=== PATIENT | female | born 1945 | race African-American/Black ===

== ENCOUNTER 2016-11-15 12:18 | Inpatient (IN) | payer OTHER ==
--- NOTE | 2016-11-15 12:32 | PDOC ---
History of Present Illness - General Chief Complaint: Dialysis Shunt Problem Stated Complaint: WOUND CARE Time Seen by Provider: 11/15/16 12:25 History Source: EMS Exam Limitations: Dementia - History of Present Illness Initial Comments: 11/15/16 12:40 Patient is a 71F who arrived via EMS from a correction with a complaint of missed dialysis secondary to lost access to her AVF. She saw Dr Villa yesterday , who did a procedure to regain access to the AVF. However, the dialysis center was unable to establish access yesterday. Paperwork from her correction state a Cr of 12.4 and K of 4.9 on 11/12. EMS stated that she is confused at baseline, that she was at her baseline and was only oriented to self. The patient reports no pain, but was unable to answer more complex or specific questions. 11/15/16 15:38 Resident of [facility]. PCP is listed as Dr Salas on correction paperwork. Past History - Past Medical History Allergies/Adverse Reactions: Allergies Allergy/AdvReac Type Severity Reaction Status Date / Time labetalol Allergy Intermediate Difficulty Verified 11/15/16 12:25 Breathing latanoprost [From Xalatan] Allergy Intermediate Difficulty Verified 11/15/16 12: 25 Breathing peanut Allergy Verified 11/15/16 12:25 Home Medications: Ambulatory Orders Albuterol 0.083% Nebulizer Lizeth [Ventolin 0.083% Nebulizer Soln -] 1 amp IH BID 02/14/15 Amlodipine Besylate 10 mg PO DAILY 02/14/15 Carvedilol [Coreg] 25 mg PO BID 02/14/15 Cinacalcet HCl [Sensipar] 30 mg PO DAILY 02/14/15 Clonidine HCl [Catapres] 0.3 mg PO TID 02/14/15 Docusate Sodium [Colace -] 3 cap PO HS 02/14/15 Ferrous Sulfate 325 mg PO DAILY 02/14/15 Gabapentin 100 mg PO TID 02/14/15 Haloperidol [Haldol -] 10 mg PO HS 02/14/15 Acetaminophen [Pain Relief] 650 mg PO PRN PRN 11/14/16 Ammonium Lactate [Tootie-Hydrolac] 240 gm TP HS 11/14/16 Divalproex [Depakote -] 500 mg PO TID 11/14/16 Guaifenesin/D-Methorphan Hb [Diabetic Tussin Dm Liquid] 118 ml PO PRN PRN Insulin (Levemir) [Levemir Vial] 18 unit SQ HS 11/14/16 Insulin Aspart [Novolog] 100 unit SQ TID 11/14/16 Insulin Lispro [Humalog] 100 unit SQ PRN PRN 11/14/16 Lactulose 10 gm PO DAILY 11/14/16 Lorazepam 1 mg PO PRN PRN 11/14/16 Magnesium Hydroxide [Milk of Magnesia] 400 mg PO PRN 11/14/16 Menthol [Bengay Ultra Strength] 1 each TP DAILY 11/14/16 Na Phos,M-B/Na Phos,Di-Ba [Fleet Enema] 133 ml RC PRN PRN 11/14/16 Polyethylene Glycol [Polyox Wsr-301] 1 gm MC HS 11/14/16 Prednisone 10 mg PO DAILY 11/14/16 Sevelamer Carbonate [Renvela] 800 mg PO TID 11/14/16 Umeclidinium [place] [Incruse Ellipta] 62.5 mcg IH DAILY 11/14/16 Vitamin B Comp W-C [Nephro-Lorenzo -] 1 tablet PO DAILY 11/14/16 Anemia: No Asthma: Yes Cancer: Yes (colon) Cardiac Disorders: No COPD: No CHF: No Diabetes: Yes HTN: Yes Hypercholesterolemia: No Thyroid Disease: No - Surgical History Abdominal Surgery: Yes Appendectomy: No Cardiac Surgery: No Cholecystectomy: No Lung Surgery: No Neurologic Surgery: No Orthopedic Surgery: No - Psycho/Social/Smoking Cessation Hx Smoking History: Former smoker Have you smoked in the past 12 months: No Number of Cigarettes Smoked Daily: 3 'Breaking Loose' booklet given: 03/10/15 Hx Alcohol Use: No Drug/Substance Use Hx: No Substance Use Type: None Hx Substance Use Treatment: No Review of Systems - Review of Systems Able to Perform ROS?: No (Patient's condition) *Physical Exam - Physical Exam Comments: 11/15/16 13:15 GENERAL: Awake, alert, and fully oriented, in no acute distress HEAD: No signs of trauma, normocephalic, atraumatic ENT: Auricles normal inspection, hearing grossly normal, nares patent, oropharynx clear without exudates. Moist mucosa NECK: Normal ROM, supple, JVD, or masses LUNGS: No distress, clear to auscultation bilaterally HEART: Regular rate and rhythm, normal S1 and S2, no murmurs, rubs or gallops ABDOMEN: Soft, nontender, normoactive bowel sounds. No guarding, no rebound. No masses EXTREMITIES: Normal inspection, Normal range of motion, no pitting edema. No clubbing or cyanosis. AVF in left arm has no palpable thrill. NEUROLOGICAL: Abnormal slurred speech, alert to self, place, year, but not situation SKIN: Warm, Dry, normal turgor, no rashes or lesions noted. ED Treatment Course - LABORATORY CBC & Chemistry Diagram: 11/15/16 13:11 11/15/16 13:11 Medical Decision Making - Medical Decision Making 11/15/16 13:17 Patient is a 71F with history of COPD, IDDM, CHF, HTN, Bipolar and CKD here today complaining of missed dialysis secondary to lost access to her AVF. Dr Villa, her vascular surgeon, has been contacted. Vital signs stable and normal. Will order CBC, CMP, EKG, CXR to evaluate. 11/15/16 14:00 CXR shows properly placed port and no evidence of fluid overload. Repeat blood pressure at 91/62. EKG shows t wave inversions in lateral leads, normal sinus rhythm, normal rate. T wave inversions are new when compared to EKG from 2 years ago. 11/15/16 15:41 Dr Villa consulted on patient. Patient case reviewed. Asked to admit patient and said he would see her. 11/15/16 16:01 Dr Salas paged at 3:45. Cr of 14.2, K of 5.2. 11/15/16 16:36 Dr Salas returned call, patient discussed, agreed with plan to admit. Does not have admitting privileges at [facility]. Call out to doctor Car for admission. 11/15/16 18:[address] Car on tele. Dr Fajardo from Nephrology consulted on to case. Agrees with plan. *DC/Admit/Observation/Transfer Diagnosis at time of Disposition: Dialysis AV fistula malfunction Qualifiers: Encounter type: initial encounter Qualified Code(s): T82.590A - Other mechanical complication of surgically created arteriovenous fistula, initial encounter - Discharge Dispostion Condition at time of disposition: Stable Admit: Yes - Transfer to Acute Care Facility Accepting Physician:: Josep - Attestations Physician Attestion: 11/15/16 16:50 I, Dr. Carlos Torre, attest that this document has been prepared under my direction and personally reviewed by me in its entirety. I further attest, that it accurately reflects all work, treatment, procedures and medical decision -making performed by me.
--- NOTE | 2016-11-15 12:45 | PDOC ---
Attending Attestation - Resident Resident Name: NichoCarlos - ED Attending Attestation I have performed the following: I have examined & evaluated the patient, The case was reviewed & discussed with the resident, I agree w/resident's findings & plan, Exceptions are as noted - HPI HPI: 11/15/16 12:43 71yo F hx ESRD on HD MWF (last HD Saturday, unable to get HD yesterday 2/2 malfx fistula), COPD, asthma, IDDM, CHF, HTN, bipolar d/o p/w missed HD. Pt lost fistula access yesterday, saw Dr. Villa (vascular) who was unable to fix the fistula. Pt is a poor historian but denies pain, chest pain, shortness of breath , fevers, chills, nausea, vomiting, diarrhea, abdominal pain, dysuria, lower extremity edema, rashes. Potassium in labs at [place] was 4.9 on 11/12. - Physicial Exam PE: 11/15/16 13:16 GENERAL: Awake, alert, in no acute distress HEAD: No signs of trauma EYES: PERRLA, EOMI, sclera anicteric, conjunctiva clear ENT: Auricles normal inspection, hearing grossly normal, nares patent, oropharynx clear without exudates. Moist mucosa NECK: Normal ROM, supple, no lymphadenopathy, JVD, or masses LUNGS: Breath sounds equal, clear to auscultation bilaterally. No wheezes, and no crackles HEART: Regular rate and rhythm, normal S1 and S2, no murmurs, rubs or gallops ABDOMEN: Soft, nontender, normoactive bowel sounds. No guarding, no rebound. No masses EXTREMITIES: Normal range of motion, LUE fistula with no palpable thrill NEUROLOGICAL: Normal speech, cranial nerves intact, negative pronator drift, 5/ 5 strength in all 4 extremities, normal sensation to light touch in all 4 extremities, normal cerebellar exam SKIN: Warm, Dry, normal turgor, no rashes or lesions noted. - Medical Decision Making 11/15/16 13:18 71-year-old female end-stage renal disease on dialysis presents with missed dialysis secondary to malfunctioning fistula. Will check for electrolyte abnormalities and check remainder of basic labs and EKG. Will also contact Dr. Villa in order to arrange for patient's fistula to be repaired. -labs -cardiac cath technologist -CXR -EKG -call Dr. Villa -admit
[2016-11-15 12:47] VITALS: BMI 26.9
[2016-11-15 13:29] LABS: BASOPHIL 0.2 % (0-2.0); EOSINOPHIL 1.8 % (0-4.5); MCH 30.3 pg (25.7-33.7); MCHC 31.1 g/dl (32.0-36.0); MEAN CELL VOLUME 97.7 fl (80-96); MEAN PLT VOLUME 8.3 fl (7.5-11.1); NEUTROPHILS 76.3 % (42.8-82.8); PLATELET COUNT 191 K/MM3 (134-434)
[2016-11-15 13:51] LABS: INR 1.04 (0.82-1.09); PROTHROMBIN TIME (PATIENT) 11.4 SEC (9.98-11.88)
[2016-11-15 14:20] LABS: ALBUMIN 2.6 g/dl (3.4-5.0); ANION GAP 19 (8-16); CALCIUM 8.8 mg/dL (8.5-10.1); CO2 23 mmol/L (21-32); GLUCOSE,RANDOM 176 mg/dL (74-106); MAGNESIUM 3.5 mg/dL (1.8-2.4); SGOT/AST 15 U/L (15-37); SGPT/ALT 7 U/L (12-78)
[2016-11-15 14:26] LABS: ALK PHOS 72 U/L (45-117); BILIRUBIN,TOTAL 0.2 mg/dL (0.2-1.0); CPK 68 IU/L (26-192); TOT PROT 5.8 g/dl (6.4-8.2); TROPONIN I 0.06 ng/ml (0.00-0.05)
[2016-11-15 14:30] LABS: CREATININE 14.2 mg/dL (0.55-1.02)
--- NOTE | 2016-11-15 17:40 | PN ---
Progress Note (short form) - Note Progress Note: VAscular Surgery Pt seen and examined. Difficult cannulation today. Left avf with bruit Will do venogram jyoti morning Yimi Villa DO
[2016-11-15 20:53] LABS: PLATELET COMMENT2 NO CLUMPING NOTED; PLATELET COMMENT3 NO CLOTTING DETECTED
[2016-11-15 20:54] LABS: ANISOCYTOSIS 2+; HYPOCHROMIA 2+; POIKILOCYTOSIS 1+; POLYCHROMASIA 1+
[2016-11-15] MEDS ORDERED: LORazepam 1 MG TABLET PO PRN (21:02)
[2016-11-15] MEDS ORDERED: ACETAMINOPHEN 325 MG TABLET (FP) PO PRN (21:15)
[2016-11-15] MEDS ORDERED: HALOPERIDOL 5 MG TABLET (FP) PO SCH (22:00)
[2016-11-15] MEDS ORDERED: CARVEDILOL 25 MG TABLET (FP) PO SCH (22:00)
[2016-11-15] MEDS ORDERED: INSULIN DETEMIR 100 UNITS/ML MDV SQ SCH (22:00)
[2016-11-15] MEDS ORDERED: DOCUSATE SODIUM 100 MG CAPSULE (FP) PO SCH (22:00)
[2016-11-15] MEDS ORDERED: PATIENT'S OWN MEDICATION (NON-FORMULARY) (Polyethylene Glycol [Polyox Wsr-301] 1 GM) MC SCH (22:00)
[2016-11-15] MEDS: cloNIDine HCL 0.1 MG TABLET PO SCH (23:17)
[2016-11-15] MEDS: FERROUS SO4 325 MG TABLET (FP) PO SCH (23:17)
[2016-11-15] MEDS: GABAPENTIN 100 MG CAPSULE (FP) PO SCH (23:17)
[2016-11-15] MEDS: HEPARIN NA (PORCINE) 5,000 UNITS/ML 1ML VIAL SQ SCH (23:17)
[2016-11-15] MEDS: DIVALPROEX SODIUM 500 MG TABLET E.C. PO SCH (23:17)
[2016-11-16] MEDS ORDERED: ONDANSETRON 4 MG/2 ML VIAL IVPB PRN ×2 (01:00→13:19)
[2016-11-16] MEDS ORDERED: PT OWN MED DRAWER 7, Y5N ONE ×2 (06:55→22:16)
[2016-11-16] MEDS: cloNIDine HCL 0.1 MG TABLET PO SCH ×3 (06:57→22:20)
[2016-11-16] MEDS: GABAPENTIN 100 MG CAPSULE (FP) PO SCH ×3 (06:57→22:20)
[2016-11-16] MEDS: DIVALPROEX SODIUM 500 MG TABLET E.C. PO SCH (06:57)
[2016-11-16] MEDS ORDERED: SEVELAMER CARBONATE 800 MG TAB (FP) PO SCH (08:00)
[2016-11-16] MEDS ORDERED: predniSONE 10 MG TABLET (UD) PO SCH (10:00)
[2016-11-16] MEDS ORDERED: PATIENT'S OWN MEDICATION (NON-FORMULARY) (Umeclidinium Bromide [Incruse Ellipta] 62.5 MCG) IH SCH (10:00)
[2016-11-16] MEDS ORDERED: CINACALCET HCL 30 MG TAB (FP) PO SCH (10:00)
[2016-11-16] MEDS ORDERED: amLODIPine BESYLATE 10 MG TABLET (FP) PO SCH (10:00)
[2016-11-16] MEDS ORDERED: LACTULOSE 20 GM/30 ML UDC (FOR ORAL USE ONLY) PO SCH (10:00)
--- NOTE | 2016-11-16 10:27 | EKG ---
Test Reason : Blood Pressure : / mmHG Vent. Rate : 074 BPM Atrial Rate : 074 BPM P-R Int : 128 ms QRS Dur : 080 ms QT Int : 410 ms P-R-T Axes : 053 -09 100 degrees QTc Int : 455 ms NORMAL SINUS RHYTHM T WAVE ABNORMALITY, CONSIDER LATERAL ISCHEMIA ABNORMAL ECG WHEN COMPARED WITH ECG OF 10-MAR-2015 08:33, T WAVE INVERSION NOW EVIDENT IN LATERAL LEADS Confirmed by CHRISTOPHER GERARDO, SAMMY ([id number]) on 11/16/2016 10:26:51 AM Referred By: Confirmed By:SAMMY WHITE MD
[2016-11-16 10:34] LABS: BASOPHIL 0.3 % (0-2.0); EOSINOPHIL 3.7 % (0-4.5); MCH 30.5 pg (25.7-33.7); MCHC 31.3 g/dl (32.0-36.0); MEAN CELL VOLUME 97.3 fl (80-96); MEAN PLT VOLUME 7.7 fl (7.5-11.1); NEUTROPHILS 72.8 % (42.8-82.8); PLATELET COUNT 177 K/MM3 (134-434); RDW 22.9 % (11.6-15.6); WHITE BLOOD COUNT 6.9 K/mm3 (4.0-10.0)
[2016-11-16] MEDS: FERROUS SO4 325 MG TABLET (FP) PO SCH (10:50)
[2016-11-16] MEDS: HEPARIN NA (PORCINE) 5,000 UNITS/ML 1ML VIAL SQ SCH ×2 (10:51→22:20)
[2016-11-16 10:56] LABS: ALBUMIN 2.4 g/dl (3.4-5.0); ANION GAP 14 (8-16); BILIRUBIN,TOTAL 0.3 mg/dL (0.2-1.0); CALCIUM 8.5 mg/dL (8.5-10.1); CO2 22 mmol/L (21-32); GLUCOSE,RANDOM 64 mg/dL (74-106); SGOT/AST 5 U/L (15-37); SGPT/ALT < 6 U/L (12-78); TOT PROT 5.3 g/dl (6.4-8.2)
[2016-11-16 11:02] LABS: ALK PHOS 66 U/L (45-117)
[2016-11-16] MEDS ORDERED: LIDOCAINE HCL 1%, 10 MG/ML (20ML VIAL) ONE (11:02)
--- NOTE | 2016-11-16 11:06 | PN ---
Progress Note (short form) - Note Progress Note: Pt is followed by Dr. Baldomero Morales. He is aware and will follow as a inpatient. Thank you Valdo Fajardo
[2016-11-16] MEDS ORDERED: PROPOFOL 20 ML ONE (11:35)
[2016-11-16] MEDS ORDERED: MIDAZOLAM HCL 2 MG/2 ML SINGLE DOSE VIAL ONE (11:35)
[2016-11-16] MEDS ORDERED: ceFAZolin SODIUM 1 GM VIAL IVPB ONE (11:38)
[2016-11-16] MEDS ORDERED: EPOETIN ALFA 2,000 UNITS/1 ML VIAL IVPUSH ONE ×2 (11:44)
[2016-11-16] MEDS ORDERED: LIDOCAINE HCL 1%, 10 MG/ML (50 mL VIAL) IJ ONE ×2 (11:51)
[2016-11-16] MEDS ORDERED: EPOETIN ALFA 20,000 UNIT/1 ML VIAL IVPUSH ONE (12:00)
[2016-11-16] MEDS ORDERED: ceFAZolin SODIUM 1 GM VIAL ONE (12:02)
[2016-11-16] MEDS ORDERED: HEPARIN NA (PORCINE) 5,000 UNITS/ML 1ML VIAL ONE (12:02)
[2016-11-16 12:25] LABS: CREATININE 14.8 mg/dL (0.55-1.02)
--- NOTE | 2016-11-16 12:49 | OP ---
Operative Note - Note: Operative Date: 11/16/16 Pre-Operative Diagnosis: clotted left avf Operation: venogram, suction thrombectomy, venoplasty, stent placement left avf Post-Operative Diagnosis: Same as Pre-op Surgeon: Yimi Villa Anesthesia: Fractional Estimated Blood Loss (mls): 20 Operative Report Dictated: Yes
[2016-11-16] MEDS ORDERED: ONDANSETRON 4 MG/2 ML VIAL IVPUSH PRN (12:58)
[2016-11-16] MEDS ORDERED: LORazepam 1 MG TABLET PO PRN (13:19)
[2016-11-16] MEDS ORDERED: ACETAMINOPHEN 325 MG TABLET (FP) PO PRN (13:19)
[2016-11-16] MEDS ORDERED: EPOETIN ALFA 10,000 UNIT/1 ML VIAL IVPUSH ONE (13:19)
--- NOTE | 2016-11-16 15:15 | HP ---
Admitting History and Physical - Admission History of Present Illness: Pt is a 71 y/o female poor histotrian w/ PMH significant for ESRD on HD MWF ( last HD Saturday, unable to get HD yesterday 2/2 malfx fistula), COPD, asthma, IDDM, CHF, HTN, bipolar dz. Pt lost fistula access yesterday, saw Dr. Villa ( vascular) who was unable to repair the fistula as outpt and sent to ER. - Past Medical History Cardiovascular: Yes: HTN, Hyperlipdemia Pulmonary: Yes: Asthma, COPD Renal/: Yes: Renal Failure, Hemodialysis ...: No Endocrine: Yes: Diabetes Mellitus - Past Surgical History Additional Past Surgical History: AV fistula placement - Smoking History Smoking history: Former smoker Have you smoked in the past 12 months: No Aproximately how many cigarettes per day: 3 If you are a former smoker, when did you quit?: last year - Alcohol/Substance Use Hx Alcohol Use: No Home Medications - Allergies Allergies/Adverse Reactions: Allergies Allergy/AdvReac Type Severity Reaction Status Date / Time labetalol Allergy Intermediate Difficulty Verified 11/15/16 12:25 Breathing latanoprost [From Xalatan] Allergy Intermediate Difficulty Verified 11/15/16 12: 25 Breathing calcium acetate [From PhosLo] Allergy Verified 11/16/16 01:53 peanut Allergy Verified 11/15/16 12:25 - Home Medications Home Medications: Ambulatory Orders Albuterol 0.083% Nebulizer Lizeth [Ventolin 0.083% Nebulizer Soln -] 1 amp IH BID 02/14/15 Amlodipine Besylate 10 mg PO DAILY 02/14/15 Carvedilol [Coreg] 25 mg PO BID 02/14/15 Cinacalcet HCl [Sensipar] 30 mg PO DAILY 02/14/15 Clonidine HCl [Catapres] 0.3 mg PO TID 02/14/15 Docusate Sodium [Colace -] 3 cap PO HS 02/14/15 Ferrous Sulfate 325 mg PO DAILY 02/14/15 Gabapentin 100 mg PO TID 02/14/15 Haloperidol [Haldol -] 10 mg PO HS 02/14/15 Acetaminophen [Pain Relief] 650 mg PO PRN PRN 11/14/16 Ammonium Lactate [Tootie-Hydrolac] 240 gm TP HS 11/14/16 Divalproex [Depakote -] 500 mg PO TID 11/14/16 Guaifenesin/D-Methorphan Hb [Diabetic Tussin Dm Liquid] 118 ml PO PRN PRN Insulin (Levemir) [Levemir Vial] 18 unit SQ HS 11/14/16 Insulin Aspart [Novolog] 100 unit SQ TID 11/14/16 Insulin Lispro [Humalog] 100 unit SQ PRN PRN 11/14/16 Lactulose 10 gm PO DAILY 11/14/16 Lorazepam 1 mg PO PRN PRN 11/14/16 Magnesium Hydroxide [Milk of Magnesia] 400 mg PO PRN 11/14/16 Menthol [Bengay Ultra Strength] 1 each TP DAILY 11/14/16 Na Phos,M-B/Na Phos,Di-Ba [Fleet Enema] 133 ml RC PRN PRN 11/14/16 Polyethylene Glycol [Polyox Wsr-301] 1 gm MC HS 11/14/16 Prednisone 10 mg PO DAILY 11/14/16 Sevelamer Carbonate [Renvela] 800 mg PO TID 11/14/16 Umeclidinium [place] [Incruse Ellipta] 62.5 mcg IH DAILY 11/14/16 Vitamin B Comp W-C [Nephro-Lorenzo -] 1 tablet PO DAILY 11/14/16 Family Disease History - Family Disease History Family History: Unremarkable Review of Systems Unable to obtain ROS, reason: Poor historian Physical Examination Vital Signs: Vital Signs Temperature 95.9 F L 11/16/16 12:48 Pulse Rate 62 11/16/16 13:15 Respiratory Rate 16 11/16/16 13:15 Blood Pressure 120/67 11/16/16 13:15 O2 Sat by Pulse Oximetry (%) 100 11/16/16 13:15 Constitutional: Yes: Well Nourished HENT: Yes: WNL Neck: Yes: WNL, Supple Cardiovascular: Yes: WNL, Regular Rate and Rhythm Respiratory: Yes: WNL, Regular, CTA Bilaterally Gastrointestinal: Yes: WNL, Normal Bowel Sounds, Soft, Abdomen, Obese Extremities: Yes: Other (LT AV fistula/shiley cath) Edema: LLE: 1+, RLE: 1+ Labs: CBC, BMP 11/16/16 10:26 08/18/17 10:26 Problem List - Problems (1) Dialysis AV fistula malfunction Assessment/Plan: S/P thrombectomy and stent placement of lt av fistula Pt also had placement of shiley cath in lt femoral vein Code(s): T82.590A - [facility] COMPL OF SURGICALLY CREATED ARTERIOVENOUS FISTULA, INIT Qualifiers: Encounter type: initial encounter Qualified Code(s): T82.590A - Other mechanical complication of surgically created arteriovenous fistula, initial encounter (2) ESRD (end stage renal disease) Assessment/Plan: As per renal Code(s): N18.6 - END STAGE RENAL DISEASE (3) Diabetes Code(s): E11.9 - TYPE 2 DIABETES MELLITUS WITHOUT COMPLICATIONS
--- NOTE | 2016-11-16 15:43 | OP ---
DATE OF OPERATION: 11/16/2016 PREOPERATIVE DIAGNOSIS: Clotted left arteriovenous fistula. POSTOPERATIVE DIAGNOSIS: Clotted left arteriovenous fistula. PROCEDURE: Venogram, suction thrombectomy, venoplasty, stent placement left arteriovenous fistula. SURGEON: Yimi Luther D.O. ANESTHESIA: Fractional. BLOOD LOSS: 20 mL. INDICATION: The patient is a 71-year-old female that has a left cephalic vein fistula that is clotted, decided she would need a thrombectomy. Patient was consented for the procedure understanding all risks, benefits, and alternatives and was then taken to the operating room. DESCRIPTION OF PROCEDURE: Once in the operating room, he was laid on the operating table in a supine manner, and the area of the left arm are prepped and draped in a sterile surgical manner. We then injected 5 mL of lidocaine 1% approximately at the AV fistula above the anastomosis. We then took our Micropuncture needle and punctured the fistula. A Micropuncture wire was inserted, Micropuncture sheath was inserted, and a traditional short 6-Somali sheath was inserted. We then shot a venogram by injection showing the entire fistula could not be visualized and was clotted. We then placed a 0.035 floppy guidewire into the central veins. We then went ahead an suction thrombectomy catheter and performed suction thrombectomy of the entire cephalic vein all the way to the central vein. Completion venogram now showed the fistula was visualized but still had clot in it. We then went ahead and used a 9 x 8 balloon and performed venoplasty of the entire AV fistula. We then upsized with 7 Somali sheath and used a 10 x 8 balloon and performed venoplasty of the entire AV fistula. We then, upon completion of venogram again, showed that the body of the fistula had stenotic areas and had considerable disease in the vein; at this point, we went ahead and placed a 9 x 4 and a 9 x 6 Bard stent in, and that was ballooned in place using a 10 x 8 balloon. Completion venogram now showed that the fistula was patent. There was good brisk flow all the way to the central veins. At this point, we used a 4-0 Biosyn and a [id number] stitch was placed around the sheath, and the sheath was pulled. Area was then dried. Dermabond was placed. Patient tolerated the procedure without complications. Patient was transferred to PACU in stable condition. There was a good bruit at left AV fistula. YIMI LUTHER DO [id number]
--- NOTE | 2016-11-16 15:59 | CONSULT ---
Consult Consult Specialty:: Nephrology Reason for Consultation:: ESRD - History of Present Illness Chief Complaint: clotted av fistula History of Present Illness: Pt is a 71 year old female with pmhx of ESRD, HTN, DM and bipolar who was sent in to the ER for clotted AV fistula. She last went to HD on Saturday where she received about 2 hours of HD. She was taken to the OR for a thrombecomy and stent placement. She is awake and is agitated today. She has been on HD for several years and is followed by me as an outpt. She denies chest pain or shortness of breath. - History Source History Provided By: Patient, Medical Record - Past Medical History Cardio/Vascular: Yes: HTN, Hyperlipdemia Pulmonary: Yes: COPD Renal/: Yes: Renal Failure, Hemodialysis ...: No Psych: Yes: Bipolar - Past Surgical History Past Surgical History: Yes: AV Fistula/Graft - Alcohol/Substance Use Hx Alcohol Use: No - Smoking History Smoking history: Former smoker Have you smoked in the past 12 months: No Aproximately how many cigarettes per day: 3 If you are a former smoker, when did you quit?: last year Home Medications - Allergies Allergies/Adverse Reactions: Allergies Allergy/AdvReac Type Severity Reaction Status Date / Time labetalol Allergy Intermediate Difficulty Verified 11/15/16 12:25 Breathing latanoprost [From Xalatan] Allergy Intermediate Difficulty Verified 11/15/16 12: 25 Breathing calcium acetate [From PhosLo] Allergy Verified 11/16/16 01:53 peanut Allergy Verified 11/15/16 12:25 - Home Medications Home Medications: Ambulatory Orders Carvedilol [Coreg] 25 mg PO BID 02/14/15 Cinacalcet HCl [Sensipar] 30 mg PO DAILY 02/14/15 Clonidine HCl [Catapres] 0.3 mg PO TID 02/14/15 Docusate Sodium [Colace -] 3 cap PO HS 02/14/15 Haloperidol [Haldol -] 10 mg PO HS 02/14/15 RX: Albuterol 0.083% Nebulizer Lizeth [Ventolin 0.083% Nebulizer Soln -] 1 amp IH BID 02/14/15 RX: Amlodipine Besylate 10 mg PO DAILY 02/14/15 RX: Ferrous Sulfate 325 mg PO DAILY 02/14/15 RX: Gabapentin 100 mg PO TID 02/14/15 Acetaminophen [Pain Relief] 650 mg PO PRN PRN 11/14/16 Ammonium Lactate [Tootie-Hydrolac] 240 gm TP 11/14/16 Divalproex [Depakote -] 500 mg PO TID 11/14/16 Guaifenesin/D-Methorphan Hb [Diabetic Tussin Dm Liquid] 118 ml PO PRN PRN Insulin (Levemir) [Levemir Vial] 18 unit SQ HS 11/14/16 Insulin Aspart [Novolog] 100 unit SQ TID 11/14/16 Insulin Lispro [Humalog] 100 unit SQ PRN PRN 11/14/16 Magnesium Hydroxide [Milk of Magnesia] 400 mg PO PRN 11/14/16 Menthol [Bengay Ultra Strength] 1 each TP DAILY 11/14/16 Na Phos,M-B/Na Phos,Di-Ba [Fleet Enema] 133 ml RC PRN PRN 11/14/16 Polyethylene Glycol [Polyox Wsr-301] 1 gm MC 11/14/16 RX: Lactulose 10 gm PO DAILY 11/14/16 RX: Lorazepam 1 mg PO PRN PRN 11/14/16 RX: Prednisone 10 mg PO DAILY 11/14/16 Sevelamer Carbonate [Renvela] 800 mg PO TID 11/14/16 Umeclidinium [place] [Incruse Ellipta] 62.5 mcg IH DAILY 11/14/16 Vitamin B Comp W-C [Nephro-Lorenzo -] 1 tablet PO DAILY 11/14/16 Family Disease History - Family Disease History Family History: Denies Review of Systems - Review of Systems Constitutional: reports: No Symptoms Eyes: reports: No Symptoms HENT: reports: No Symptoms Neck: reports: No Symptoms Cardiovascular: reports: No Symptoms Respiratory: reports: No Symptoms Gastrointestinal: reports: No Symptoms Genitourinary: reports: No Symptoms Musculoskeletal: reports: No Symptoms Integumentary: reports: No Symptoms Neurological: reports: No Symptoms Endocrine: reports: No Symptoms Hematology/Lymphatic: reports: No Symptoms Psychiatric: reports: No Symptoms Physical Exam Vital Signs: Vital Signs Temperature 97.6 F 11/16/16 14:00 Pulse Rate 66 11/16/16 14:00 Respiratory Rate 16 11/16/16 14:00 Blood Pressure 125/50 11/16/16 14:00 O2 Sat by Pulse Oximetry (%) 98 11/16/16 13:45 Constitutional: Yes: Anxious Eyes: Yes: Conjunctiva Clear HENT: Yes: Atraumatic Neck: Yes: Supple Cardiovascular: Yes: S1, S2 Respiratory: Yes: CTA Bilaterally Gastrointestinal: Yes: Soft, Abdomen, Obese Renal/: Yes: WNL Musculoskeletal: Yes: WNL Edema: Yes Edema: LLE: 1+, RLE: 1+ Neurological: Yes: Oriented Psychiatric: Yes: Agitated Labs: CBC, BMP 11/16/16 10:26 11/16/16 10:26 Laboratory Tests 11/15/16 11/15/16 11/16/16 13:11 13:11 10:26 Hgb 7.4 L 6.7 L* Sodium 139 Potassium 5.2 H Chloride 97 L Carbon Dioxide Anion Gap 19 H BUN 135 H* Creatinine 14.2 H* 11/16/16 10:26 Hgb Sodium 138 Potassium 5.5 H Chloride 102 Carbon Dioxide 22 Anion Gap 14 BUN 140 H* Creatinine 14.8 H* Imaging - Results Chest X-ray: Report Reviewed Problem List - Problems (1) Dialysis AV fistula malfunction Code(s): T82.590A - [facility] COMPL OF SURGICALLY CREATED ARTERIOVENOUS FISTULA, INIT Qualifiers: Encounter type: initial encounter Qualified Code(s): T82.590A - Other mechanical complication of surgically created arteriovenous fistula, initial encounter (2) ESRD (end stage renal disease) Code(s): N18.6 - END STAGE RENAL DISEASE Assessment/Plan Current Medications Generic Name Dose Route Start Last Admin Trade Name Freq PRN Reason Stop Dose Admin Acetaminophen 650 mg 11/16/16 13:19 Tylenol - PO Q4H PRN PAIN Amlodipine Besylate 10 mg 11/17/16 10:00 Norvasc - PO DAILY [facility] Carvedilol 25 mg 11/16/16 22:00 Coreg - PO BID [facility] Cinacalcet 30 mg 11/17/16 10:00 Sensipar - PO DAILY [facility] Clonidine 0.3 mg 11/16/16 14:00 Catapres - PO TID [facility] Divalproex Sodium 500 mg 11/16/16 14:00 Depakote - PO TID [facility] Docusate Sodium 300 mg 11/16/16 22:00 Colace - PO HS [facility] Epoetin Alfredo 10,000 unit 11/16/16 13:19 Procrit - IVPUSH 11/16/16 13:20 ONCE ONE Ferrous Sulfate 325 mg 11/17/16 10:00 Feosol - PO DAILY [facility] Gabapentin 100 mg 11/16/16 14:00 Neurontin - PO TID [facility] Haloperidol 10 mg 11/16/16 22:00 Haldol - PO HS [facility] Heparin Sodium (Porcine) 5,000 unit 11/16/16 22:00 Heparin - SQ BID [facility] Insulin Detemir 18 units 11/16/16 22:00 Levemir Vial SQ HS [facility] Lactulose 10 gm 11/17/16 10:00 Cephulac (Oral Use) PO DAILY [facility] Lorazepam 1 mg 11/16/16 13:19 Ativan - PO DAILY PRN ANXIETY Non-Formulary Medication 1 gm 11/16/16 22:00 Polyethylene Glycol [Polyox Wsr-301] MC HS [facility] Non-Formulary Medication 62.5 mcg 11/17/16 10:00 Umeclidinium [place] [Incruse Ellipta] IH DAILY [facility] Ondansetron HCl 4 mg 11/16/16 12:58 11/16/16 15:37 Zofran Injection IVPUSH 11/16/16 18:59 4 mg Q6H PRN Administration NAUSEA AND/OR VOMITING Ondansetron HCl 4 mg 11/16/16 13:19 Zofran Injection IVPB Q6H PRN NAUSEA AND/OR VOMITING Prednisone 10 mg 11/17/16 10:00 Deltasone - PO DAILY [facility] Sevelamer Carbonate 800 mg 11/16/16 17:30 Renvela - PO TIDCM [facility] Impression 1. ESRD 2. AV fistula malfunction 3. DM 4. HTN 5. COPD 6. Bipolar 7. anemia 8. hyperkalemia Plan - pt had fisutla declotted and had a stent placed - will arrange for HD today - will transfuse PRBC on HD - resume [place] meds - discussed with vascular surgery - will give dose of epogen - will follow Dr Morales
--- NOTE | 2016-11-16 16:28 | PN ---
Progress Note (short form) - Note Progress Note: Access clotted during HD. Pt will get shiley placed for HD. Problem List - Problems (1) Dialysis AV fistula malfunction Code(s): T82.590A - [facility] COMPL OF SURGICALLY CREATED ARTERIOVENOUS FISTULA, INIT Qualifiers: Encounter type: initial encounter Qualified Code(s): T82.590A - Other mechanical complication of surgically created arteriovenous fistula, initial encounter (2) ESRD (end stage renal disease) Code(s): N18.6 - END STAGE RENAL DISEASE
[2016-11-16] MEDS: DIVALPROEX SODIUM 250 MG TABLET E.C. (FP) PO SCH ×2 (16:42→22:20)
--- NOTE | 2016-11-16 17:35 | PN ---
Progress Note (short form) - Note Progress Note: VAscular Surgery Pt's left avf thrombosed after 30min of HD Shiley cath placed left femoral vein. Guidewire removed. all ports flushed. can use for HD Will need PC on saturday Yimi Villa DO
[2016-11-16] MEDS: SEVELAMER CARBONATE 800 MG TAB (FP) PO SCH (17:45)
[2016-11-16] MEDS ORDERED: PATIENT'S OWN MEDICATION (NON-FORMULARY) (Polyethylene Glycol [Polyox Wsr-301] 1 GM) MC SCH (22:00)
[2016-11-16] MEDS ORDERED: HALOPERIDOL 5 MG TABLET (FP) PO SCH (22:00)
[2016-11-16] MEDS: DOCUSATE SODIUM 100 MG CAPSULE (FP) PO SCH (22:19)
[2016-11-16] MEDS: CARVEDILOL 25 MG TABLET (FP) PO SCH (22:20)
[2016-11-16] MEDS: INSULIN DETEMIR 100 UNITS/ML MDV SQ SCH (22:21)
[2016-11-17] MEDS: DIVALPROEX SODIUM 250 MG TABLET E.C. (FP) PO SCH ×3 (06:57→23:38)
[2016-11-17] MEDS: cloNIDine HCL 0.1 MG TABLET PO SCH ×3 (06:57→23:36)
[2016-11-17] MEDS: GABAPENTIN 100 MG CAPSULE (FP) PO SCH ×2 (06:58→13:39)
[2016-11-17 07:32] LABS: BASOPHIL 0.1 % (0-2.0); EOSINOPHIL 0.1 % (0-4.5); MCH 30.2 pg (25.7-33.7); MCHC 33.4 g/dl (32.0-36.0); MEAN CELL VOLUME 90.5 fl (80-96); MEAN PLT VOLUME 8.1 fl (7.5-11.1); NEUTROPHILS 87.3 % (42.8-82.8); PLATELET COUNT 212 K/MM3 (134-434); RDW 20.1 % (11.6-15.6); WHITE BLOOD COUNT 15.4 K/mm3 (4.0-10.0)
[2016-11-17 07:56] LABS: ANION GAP 14 (8-16); CALCIUM 8.3 mg/dL (8.5-10.1); CO2 25 mmol/L (21-32); GLUCOSE,RANDOM 212 mg/dL (74-106)
[2016-11-17] MEDS ORDERED: AMOX TR/POT CLAV 875MG/125MG TABLETS (FP) PO SCH (08:00)
[2016-11-17 08:18] LABS: CREATININE 10.3 mg/dL (0.55-1.02)
[2016-11-17] MEDS ORDERED: INSULIN DETEMIR 100 UNITS/ML MDV SQ ONE (08:19)
[2016-11-17] MEDS: SEVELAMER CARBONATE 800 MG TAB (FP) PO SCH ×3 (09:23→18:22)
[2016-11-17] MEDS: FERROUS SO4 325 MG TABLET (FP) PO SCH (09:24)
[2016-11-17] MEDS: amLODIPine BESYLATE 10 MG TABLET (FP) PO SCH (09:24)
[2016-11-17] MEDS: HEPARIN NA (PORCINE) 5,000 UNITS/ML 1ML VIAL SQ SCH ×2 (09:24→23:46)
[2016-11-17] MEDS: predniSONE 10 MG TABLET (UD) PO SCH (09:24)
[2016-11-17] MEDS: LACTULOSE 20 GM/30 ML UDC (FOR ORAL USE ONLY) PO SCH (09:24)
[2016-11-17] MEDS: CARVEDILOL 25 MG TABLET (FP) PO SCH ×2 (09:24→23:37)
[2016-11-17] MEDS: CINACALCET HCL 30 MG TAB (FP) PO SCH (09:54)
[2016-11-17] MEDS ORDERED: PATIENT'S OWN MEDICATION (NON-FORMULARY) (Umeclidinium Bromide [Incruse Ellipta] 62.5 MCG) IH SCH (10:00)
[2016-11-17] MEDS ORDERED: HEPARIN NA (PORCINE) 5,000 UNITS/ML 1ML VIAL IVPUSH ONE (12:28)
--- NOTE | 2016-11-17 13:01 | PN ---
Progress Note (short form) - Note Progress Note: RENAL Pt seen and examined She was lethargic and hyperkalemic. So a decision to dialyze was made. Doubt her mental status is due to uremia. She has received benzos and haldol. Also had abdominal tenderness on palpation Last Vital Signs Temp Pulse Resp BP Pulse Ox 98.6 F 107 H 18 89/50 98 11/17/16 12:05 11/17/16 12:40 11/17/16 12:40 11/17/16 12:40 11/16/16 21:00 Current Medications Generic Name Dose Route Start Last Admin Trade Name Freq PRN Reason Stop Dose Admin Acetaminophen 650 mg 11/16/16 13:19 11/17/16 02:45 Tylenol - PO 650 mg Q4H PRN Administration PAIN Amlodipine Besylate 10 mg 11/17/16 10:00 11/17/16 09:24 Norvasc - PO 10 mg DAILY [facility] Administration Amoxicillin/Clavulanate Potassium 1 tab 11/17/16 08:00 Augmentin - 875mg Tablet PO BID@0800,1730 [facility] Carvedilol 25 mg 11/16/16 22:00 11/17/16 09:24 Coreg - PO 25 mg BID [facility] Administration Cinacalcet 30 mg 11/17/16 10:00 11/17/16 09:54 Sensipar - PO 30 mg DAILY [facility] Administration Clonidine 0.3 mg 11/16/16 14:00 11/17/16 06:57 Catapres - PO 0.3 mg TID [facility] Administration Divalproex Sodium 500 mg 11/16/16 14:00 11/17/16 06:57 Depakote - PO 500 mg TID [facility] Administration Docusate Sodium 300 mg 11/16/16 22:00 11/16/16 22:19 Colace - PO 300 mg HS [facility] Administration Ferrous Sulfate 325 mg 11/17/16 10:00 11/17/16 09:24 Feosol - PO 325 mg DAILY [facility] Administration Gabapentin 100 mg 11/16/16 14:00 11/17/16 06:58 Neurontin - PO 100 mg TID [facility] Administration Haloperidol 10 mg 11/16/16 22:00 11/16/16 22:19 Haldol - PO 10 mg HS [facility] Administration Heparin Sodium (Porcine) 5,000 unit 11/16/16 22:00 11/17/16 09:24 Heparin - SQ 5,000 unit BID [facility] Administration Insulin Detemir 18 units 11/16/16 22:00 11/16/16 22:21 Levemir Vial SQ 18 units HS [facility] Administration Lactulose 10 gm 11/17/16 10:00 11/17/16 09:24 Cephulac (Oral Use) PO 10 gm DAILY [facility] Administration Lorazepam 1 mg 11/16/16 13:19 11/16/16 18:00 Ativan - PO 1 mg DAILY PRN Administration ANXIETY Non-Formulary Medication 1 gm 11/16/16 22:00 Polyethylene Glycol [Polyox Wsr-301] MC HS [facility] Non-Formulary Medication 62.5 mcg 11/17/16 10:00 Umeclidinium [place] [Incruse Ellipta] IH DAILY [facility] Ondansetron HCl 4 mg 11/16/16 13:19 Zofran Injection IVPB Q6H PRN NAUSEA AND/OR VOMITING Prednisone 10 mg 11/17/16 10:00 11/17/16 09:24 Deltasone - PO 10 mg DAILY [facility] Administration Sevelamer Carbonate 800 mg 11/16/16 17:30 11/17/16 11:37 Renvela - PO Not Given TIDCM [facility] CBC, BMP 11/17/16 06:35 11/17/16 06:35 IMPRESSION see above PLAN dialysis npo unless she is fully awake evaluate for sepsis agree with vanco reevaluate tenderensswhile awake MV
[2016-11-17] MEDS ORDERED: VANCOMYCIN 1 GRAM (PRE-DOCKED) 1,000 MG/250 ML BAG IVPB ONE (13:25)
--- NOTE | 2016-11-17 13:35 | CONSULT ---
Consult Consult Specialty:: INFECTIOUS DISEASE Reason for Consultation:: Lethargy, leukocytosis - History of Present Illness History of Present Illness: 71 y.o. female with history of ESRD on HD, AVF, HTN, DM, Bipolar d.o. initially came in due to missed HD session due to clotted AVF. She underwent thrombectomy and stent placement. She was agitated yesterday and was given Haldol. Today she had started on HD but AVF malfunction persisted and Left groin shiley placed. Pt currently on HD and is lethargic, nonverbal. Her WBC count elevated today. Currently she is afebrile. - History Source History Provided By: Medical Record Limitations to Obtaining History: Other (lethargic) - Past Medical History Cardio/Vascular: Yes: HTN, Hyperlipdemia Pulmonary: Yes: COPD Gastrointestinal: No: Ascites, Cancer, Constipation, Crohn's Disease, Diverticulitis, Diverticulosis, Esophageal Varices, Gastritis, GERD, GI Bleed, Hemorrhoids, Hiatal Hernia, Inflamatory Bowel Disease, Irritable Bowel Disease, Pancreatitis, Peptic Ulcer Disease, Ulcerative Colitis, Other Hepatobiliary: No: Cirrhosis, Cholelithiasis, Cholecystitis, Choledocholithiasis , Hepatitis A, Hepatitis B, Hepatitis C, Other Renal/: Yes: Renal Failure, Hemodialysis ...: No Psych: Yes: Bipolar - Past Surgical History Past Surgical History: Yes: AV Fistula/Graft - Alcohol/Substance Use Hx Alcohol Use: No - Smoking History Smoking history: Former smoker Have you smoked in the past 12 months: No Aproximately how many cigarettes per day: 3 If you are a former smoker, when did you quit?: last year Home Medications - Allergies Allergies/Adverse Reactions: Allergies Allergy/AdvReac Type Severity Reaction Status Date / Time labetalol Allergy Intermediate Difficulty Verified 11/15/16 12:25 Breathing latanoprost [From Xalatan] Allergy Intermediate Difficulty Verified 11/15/16 12: 25 Breathing calcium acetate [From PhosLo] Allergy Verified 11/16/16 01:53 peanut Allergy Verified 11/15/16 12:25 - Home Medications Home Medications: Ambulatory Orders Albuterol 0.083% Nebulizer Lizeth [Ventolin 0.083% Nebulizer Soln -] 1 amp IH BID 02/14/15 Amlodipine Besylate 10 mg PO DAILY 02/14/15 Carvedilol [Coreg] 25 mg PO BID 02/14/15 Cinacalcet HCl [Sensipar] 30 mg PO DAILY 02/14/15 Clonidine HCl [Catapres] 0.3 mg PO TID 02/14/15 Docusate Sodium [Colace -] 3 cap PO HS 02/14/15 Ferrous Sulfate 325 mg PO DAILY 02/14/15 Gabapentin 100 mg PO TID 02/14/15 Haloperidol [Haldol -] 10 mg PO HS 02/14/15 Acetaminophen [Pain Relief] 650 mg PO PRN PRN 11/14/16 Ammonium Lactate [Tootie-Hydrolac] 240 gm TP HS 11/14/16 Divalproex [Depakote -] 500 mg PO TID 11/14/16 Guaifenesin/D-Methorphan Hb [Diabetic Tussin Dm Liquid] 118 ml PO PRN PRN Insulin (Levemir) [Levemir Vial] 18 unit SQ HS 11/14/16 Insulin Aspart [Novolog] 100 unit SQ TID 11/14/16 Insulin Lispro [Humalog] 100 unit SQ PRN PRN 11/14/16 Lactulose 10 gm PO DAILY 11/14/16 Lorazepam 1 mg PO PRN PRN 11/14/16 Magnesium Hydroxide [Milk of Magnesia] 400 mg PO PRN 11/14/16 Menthol [Bengay Ultra Strength] 1 each TP DAILY 11/14/16 Na Phos,M-B/Na Phos,Di-Ba [Fleet Enema] 133 ml RC PRN PRN 11/14/16 Polyethylene Glycol [Polyox Wsr-301] 1 gm [facility] 11/14/16 Prednisone 10 mg PO DAILY 11/14/16 Sevelamer Carbonate [Renvela] 800 mg PO TID 11/14/16 Umeclidinium [place] [Incruse Ellipta] 62.5 mcg IH DAILY 11/14/16 Vitamin B Comp W-C [Nephro-Lorenzo -] 1 tablet PO DAILY 11/14/16 Family Disease History - Family Disease History Family History: Unable to Obtain Review of Systems Unable to obtain ROS, reason: lethargic Physical Exam Vital Signs: Vital Signs Temperature 98.6 F 11/17/16 12:05 Pulse Rate 110 H 11/17/16 13:10 Respiratory Rate 18 11/17/16 13:10 Blood Pressure 94/50 11/17/16 13:10 O2 Sat by Pulse Oximetry (%) 98 11/16/16 21:00 Constitutional: Yes: No Distress HENT: Yes: WNL Neck: Yes: Supple Cardiovascular: Yes: Regular Rate and Rhythm Respiratory: Yes: WNL Gastrointestinal: Yes: Normal Bowel Sounds, Soft Renal/: Yes: WNL, Other (Left Shiley cath) Breast(s): Yes: WNL Musculoskeletal: Yes: WNL Extremities: Yes: Other (LUE AVF) Integumentary: Yes: WNL Neurological: Yes: Other (lethargic) Labs: CBC, BMP 11/17/16 06:35 11/17/16 06:35 Problem List - Problems (1) Dialysis AV fistula malfunction Code(s): T82.590A - [facility] COMPL OF SURGICALLY CREATED ARTERIOVENOUS FISTULA, INIT Qualifiers: Encounter type: initial encounter Qualified Code(s): T82.590A - Other mechanical complication of surgically created arteriovenous fistula, initial encounter (2) ESRD (end stage renal disease) Code(s): N18.6 - END STAGE RENAL DISEASE (3) Lethargic Code(s): R53.83 - OTHER FATIGUE (4) Leukocytosis, unspecified Code(s): D72.829 - ELEVATED WHITE BLOOD CELL COUNT, UNSPECIFIED Assessment/Plan Pt Lethargy Leukocytosis r/o Sepsis Clotted AVF - suggest Vancomycin x 1 dose for now, d/c augmentin - blood cultures ordered -monitor wbc, vitals for now - will follow up
[2016-11-17 15:46] LABS: ARTERIAL BLD GAS O2 SATURATION 87.5 % (90-98.9); ARTERIAL BLOOD GAS BASE EXCESS 2.6 meq/l (-2-2); ARTERIAL BLOOD GAS HCO3 26.5 meq/L (22-26); ARTERIAL BLOOD GAS PO2 55.5 mmHg (70-100); ARTERIAL BLOOD GAS pH 7.44 (7.35-7.45)
[2016-11-17 15:47] LABS: ALLENS TEST POSITIVE; ART PUNCT SITE RIGHT RADIAL; LPM/O2% 2L; PT. ON O2? YES; TYPE OF O2 NASAL
--- NOTE | 2016-11-17 18:41 | EKG ---
Test Reason : Blood Pressure : / mmHG Vent. Rate : 066 BPM Atrial Rate : 066 BPM P-R Int : 120 ms QRS Dur : 080 ms QT Int : 472 ms P-R-T Axes : 055 003 078 degrees QTc Int : 494 ms NORMAL SINUS RHYTHM NONSPECIFIC T WAVE ABNORMALITY ABNORMAL ECG WHEN COMPARED WITH ECG OF 15-NOV-2016 13:24, NO SIGNIFICANT CHANGE WAS FOUND Confirmed by SAMMY WHITE MD ([id number]) on 11/17/2016 6:40:36 PM Referred By: Confirmed By:SAMMY WHITE MD
--- NOTE | 2016-11-17 18:41 | PN ---
Progress Note, Physician History of Present Illness: Pt was dialyzed today However pt found w/ decreased responsiveness and rapid response was called - Current Medication List Current Medications: Active Medications Acetaminophen (Tylenol -) 650 mg PO Q4H PRN PRN Reason: PAIN Last Admin: 11/17/16 02:45 Dose: 650 mg Amlodipine Besylate (Norvasc -) 10 mg PO DAILY [facility] Last Admin: 11/17/16 09:24 Dose: 10 mg Amoxicillin/Clavulanate Potassium (Augmentin - 875mg Tablet) 1 tab PO BID@0800, 1730 [facility] Carvedilol (Coreg -) 25 mg PO BID [facility] Last Admin: 11/17/16 09:24 Dose: 25 mg Cinacalcet (Sensipar -) 30 mg PO DAILY [facility] Last Admin: 11/17/16 09:54 Dose: 30 mg Clonidine (Catapres -) 0.3 mg PO TID [facility] Last Admin: 11/17/16 13:38 Dose: Not Given Divalproex Sodium (Depakote -) 500 mg PO TID [facility] Last Admin: 11/17/16 13:39 Dose: Not Given Docusate Sodium (Colace -) 300 mg PO HS [facility] Last Admin: 11/16/16 22:19 Dose: 300 mg Ferrous Sulfate (Feosol -) 325 mg PO DAILY [facility] Last Admin: 11/17/16 09:24 Dose: 325 mg Heparin Sodium (Porcine) (Heparin -) 5,000 unit SQ BID [facility] Last Admin: 11/17/16 09:24 Dose: 5,000 unit Insulin Detemir (Levemir Vial) 18 units SQ [facility] Last Admin: 11/16/16 22:21 Dose: 18 units Lactulose (Cephulac (Oral Use)) 10 gm PO DAILY [facility] Last Admin: 11/17/16 09:24 Dose: 10 gm Non-Formulary Medication (Polyethylene Glycol [Polyox Wsr-301]) 1 gm MC [facility] Non-Formulary Medication (Umeclidinium [place] [Incruse Ellipta]) 62.5 mcg IH DAILY [facility] Ondansetron HCl (Zofran Injection) 4 mg IVPB Q6H PRN PRN Reason: NAUSEA AND/OR VOMITING Prednisone (Deltasone -) 10 mg PO DAILY [facility] Last Admin: 11/17/16 09:24 Dose: 10 mg Sevelamer Carbonate (Renvela -) 800 mg PO TIDCM [facility] Last Admin: 11/17/16 18:22 Dose: Not Given - Objective Vital Signs: Vital Signs Temperature 99.6 F 11/17/16 14:45 Pulse Rate 101 H 11/17/16 14:45 Respiratory Rate 22 11/17/16 14:45 Blood Pressure 107/47 11/17/16 14:45 O2 Sat by Pulse Oximetry (%) 98 11/16/16 21:00 Constitutional: Yes: Well Nourished HENT: Yes: Other ((+)) Neck: Yes: WNL, Supple Cardiovascular: Yes: WNL, Regular Rate and Rhythm Respiratory: Yes: WNL, Regular, CTA Bilaterally Gastrointestinal: Yes: WNL, Normal Bowel Sounds, Soft Neurological: Yes: Other (responsive to pain) ...Motor Strength: WNL Labs: CBC, BMP 11/17/16 06:35 11/17/16 06:35 INR, PTT INR 1.04 (0.82-1.09) 11/15/16 13:11 Problem List - Problems (1) Lethargic Assessment/Plan: ?sepsis vs drug induced vs ESRD Pt given iv vanco Panculture WBC increased CT scan head Dc haldolol/lorazepan/neurontin Neuro consult/ID consults Code(s): R53.83 - OTHER FATIGUE (2) Dialysis AV fistula malfunction Assessment/Plan: Pt received dialysis today Cont as per renal Code(s): T82.590A - [facility] COMPL OF SURGICALLY CREATED ARTERIOVENOUS FISTULA, INIT Qualifiers: Encounter type: initial encounter Qualified Code(s): T82.590A - Other mechanical complication of surgically created arteriovenous fistula, initial encounter (3) ESRD (end stage renal disease) Code(s): N18.6 - END STAGE RENAL DISEASE (4) Leukocytosis, unspecified Code(s): D72.829 - ELEVATED WHITE BLOOD CELL COUNT, UNSPECIFIED
[2016-11-17] MEDS: ACETAMINOPHEN 650 MG SUPP.RECT PR PRN (21:30)
[2016-11-17] MEDS: DOCUSATE SODIUM 100 MG CAPSULE (FP) PO SCH (23:37)
[2016-11-17] MEDS: INSULIN DETEMIR 100 UNITS/ML MDV SQ SCH (23:46)
--- NOTE | 2016-11-18 01:22 | RAPID ---
Physical Examination Vital Signs: Vital Signs Temperature 100.6 F H 11/17/16 21:22 Pulse Rate 110 H 11/17/16 21:22 Respiratory Rate 20 11/17/16 21:22 Blood Pressure 118/32 11/17/16 21:22 O2 Sat by Pulse Oximetry (%) 100 11/17/16 21:22 Constitutional: Yes: No Distress Eyes: Yes: PERRL, Other HENT: Yes: Normocephalic Neck: Yes: WNL Cardiovascular: Yes: WNL Respiratory: Yes: WNL Neurological: Yes: Lethargy Labs: CBC, BMP 11/17/16 06:35 11/17/16 06:35 Rapid Response - Rapid Response Assessment: As per nurse, pt was responsive this morning, with her eyes open. She had just attended dialysis. However, suddenly this afternoon, she became lethargic and nurse noticed that she couldn't keep her eyes open. Rapid response was called. Pt's BG at this time was 250, BP 104/49, HR 104, 02 sat 99% on 3L NC 02. Pt's ativan and haldol medication hx was reviewed, possible medication-induced lethargy. Stat ABG and Head CT were ordered. Stat ABG did not show signs of hypercarbia. Head CT negative for any intracranial pathology. EKG was also done showing NSR. Pt followed closely on unit.
[2016-11-18 07:24] LABS: BASOPHIL 0.1 % (0-2.0); MCH 30.1 pg (25.7-33.7); MCHC 32.6 g/dl (32.0-36.0); MEAN CELL VOLUME 92.4 fl (80-96); MEAN PLT VOLUME 8.4 fl (7.5-11.1); NEUTROPHILS 89.6 % (42.8-82.8); PLATELET COUNT 192 K/MM3 (134-434); RDW 20.4 % (11.6-15.6); WHITE BLOOD COUNT 20.2 K/mm3 (4.0-10.0)
[2016-11-18] MEDS: DIVALPROEX SODIUM 250 MG TABLET E.C. (FP) PO SCH ×3 (07:33→23:26)
[2016-11-18] MEDS: cloNIDine HCL 0.1 MG TABLET PO SCH ×3 (07:33→23:25)
[2016-11-18 08:00] LABS: ALBUMIN 2.1 g/dl (3.4-5.0); ANION GAP 9 (8-16); BILIRUBIN,TOTAL 0.3 mg/dL (0.2-1.0); CALCIUM 9.2 mg/dL (8.5-10.1); CO2 29 mmol/L (21-32); GLUCOSE,RANDOM 168 mg/dL (74-106); SGOT/AST 15 U/L (15-37); SGPT/ALT < 6 U/L (12-78); TOT PROT 5.5 g/dl (6.4-8.2)
[2016-11-18 08:05] LABS: ALK PHOS 77 U/L (45-117)
[2016-11-18] MEDS: SEVELAMER CARBONATE 800 MG TAB (FP) PO SCH ×3 (09:56→18:41)
[2016-11-18] MEDS: LACTULOSE 20 GM/30 ML UDC (FOR ORAL USE ONLY) PO SCH (09:57)
[2016-11-18] MEDS: FERROUS SO4 325 MG TABLET (FP) PO SCH (09:57)
[2016-11-18] MEDS: CINACALCET HCL 30 MG TAB (FP) PO SCH (09:57)
[2016-11-18] MEDS: CARVEDILOL 25 MG TABLET (FP) PO SCH (09:57)
[2016-11-18] MEDS: amLODIPine BESYLATE 10 MG TABLET (FP) PO SCH (09:57)
[2016-11-18] MEDS: predniSONE 10 MG TABLET (UD) PO SCH (09:57)
[2016-11-18 10:06] LABS: CREATININE 9.5 mg/dL (0.55-1.02)
[2016-11-18] MEDS: HEPARIN NA (PORCINE) 5,000 UNITS/ML 1ML VIAL SQ SCH ×2 (10:09→23:26)
--- NOTE | 2016-11-18 12:25 | PN ---
Progress Note (short form) - Note Progress Note: RENAL Pt seen and examined She was lethargic and hyperkalemic. So a decision to dialyze was made. Doubt her mental status is due to uremia. She has received benzos and haldol. Also had abdominal tenderness on palpation Last Vital Signs Temp Pulse Resp BP Pulse Ox 98.7 F 108 H 20 127/55 100 11/18/16 06:00 11/18/16 06:00 11/18/16 08:52 11/18/16 06:00 11/18/16 08:52 Current Medications Generic Name Dose Route Start Last Admin Trade Name Freq PRN Reason Stop Dose Admin Acetaminophen 650 mg 11/16/16 13:19 11/17/16 02:45 Tylenol - PO 650 mg Q4H PRN Administration PAIN Amlodipine Besylate 10 mg 11/17/16 10:00 11/17/16 09:24 Norvasc - PO 10 mg DAILY [facility] Administration Amoxicillin/Clavulanate Potassium 1 tab 11/17/16 08:00 Augmentin - 875mg Tablet PO BID@0800,1730 [facility] Carvedilol 25 mg 11/16/16 22:00 11/17/16 09:24 Coreg - PO 25 mg BID [facility] Administration Cinacalcet 30 mg 11/17/16 10:00 11/17/16 09:54 Sensipar - PO 30 mg DAILY [facility] Administration Clonidine 0.3 mg 11/16/16 14:00 11/17/16 06:57 Catapres - PO 0.3 mg TID [facility] Administration Divalproex Sodium 500 mg 11/16/16 14:00 11/17/16 06:57 Depakote - PO 500 mg TID [facility] Administration Docusate Sodium 300 mg 11/16/16 22:00 11/16/16 22:19 Colace - PO 300 mg HS [facility] Administration Ferrous Sulfate 325 mg 11/17/16 10:00 11/17/16 09:24 Feosol - PO 325 mg DAILY [facility] Administration Gabapentin 100 mg 11/16/16 14:00 11/17/16 06:58 Neurontin - PO 100 mg TID [facility] Administration Haloperidol 10 mg 11/16/16 22:00 11/16/16 22:19 Haldol - PO 10 mg HS [facility] Administration Heparin Sodium (Porcine) 5,000 unit 11/16/16 22:00 11/17/16 09:24 Heparin - SQ 5,000 unit BID [facility] Administration Insulin Detemir 18 units 11/16/16 22:00 11/16/16 22:21 Levemir Vial SQ 18 units HS [facility] Administration Lactulose 10 gm 11/17/16 10:00 11/17/16 09:24 Cephulac (Oral Use) PO 10 gm DAILY [facility] Administration Lorazepam 1 mg 11/16/16 13:19 11/16/16 18:00 Ativan - PO 1 mg DAILY PRN Administration ANXIETY Non-Formulary Medication 1 gm 11/16/16 22:00 Polyethylene Glycol [Polyox Wsr-301] MC HS [facility] Non-Formulary Medication 62.5 mcg 11/17/16 10:00 Umeclidinium [place] [Incruse Ellipta] IH DAILY [facility] Ondansetron HCl 4 mg 11/16/16 13:19 Zofran Injection IVPB Q6H PRN NAUSEA AND/OR VOMITING Prednisone 10 mg 11/17/16 10:00 11/17/16 09:24 Deltasone - PO 10 mg DAILY [facility] Administration Sevelamer Carbonate 800 mg 11/16/16 17:30 11/17/16 11:37 Renvela - PO Not Given TIDCM [facility] IMPRESSION see above PLAN dialysis npo unless she is fully awake evaluate for sepsis agree with vanctierra reevaluate tenderensswhile awake
--- NOTE | 2016-11-18 17:10 | PN ---
Progress Note, Physician History of Present Illness: Pt more responsive today but still remains weak. Occasional cough noted but no obvious respiratory distress. Not following commands. Was dialyzed yesterday. - Current Medication List Current Medications: Active Medications Acetaminophen (Tylenol Suppository -) 650 mg [place] Q6H PRN PRN Reason: FEVER OR PAIN Last Admin: 11/17/16 21:30 Dose: 650 mg Amlodipine Besylate (Norvasc -) 10 mg PO DAILY [facility] Last Admin: 11/18/16 09:57 Dose: Not Given Amoxicillin/Clavulanate Potassium (Augmentin - 875mg Tablet) 1 tab PO BID@0800, 1730 [facility] Carvedilol (Coreg -) 25 mg PO BID [facility] Last Admin: 11/18/16 09:57 Dose: Not Given Cinacalcet (Sensipar -) 30 mg PO DAILY [facility] Last Admin: 11/18/16 09:57 Dose: Not Given Clonidine (Catapres -) 0.3 mg PO TID [facility] Last Admin: 11/18/16 14:14 Dose: Not Given Divalproex Sodium (Depakote -) 500 mg PO TID [facility] Last Admin: 11/18/16 14:14 Dose: Not Given Docusate Sodium (Colace -) [address] [facility] Last Admin: 11/17/16 23:37 Dose: Not Given Ferrous Sulfate (Feosol -) 325 mg PO DAILY [facility] Last Admin: 11/18/16 09:57 Dose: Not Given Heparin Sodium (Porcine) (Heparin -) 5,000 unit SQ BID [facility] Last Admin: 11/18/16 10:09 Dose: 5,000 unit Insulin Detemir (Levemir Vial) [address] [facility] Last Admin: 11/17/16 23:46 Dose: Not Given Lactulose (Cephulac (Oral Use)) 10 gm PO DAILY [facility] Last Admin: 11/18/16 09:57 Dose: Not Given Non-Formulary Medication (Polyethylene Glycol [Polyox Wsr-301]) [address] [facility] Non-Formulary Medication (Umeclidinium [place] [Incruse Ellipta]) 62.5 mcg IH DAILY [facility] Ondansetron HCl (Zofran Injection) 4 mg IVPB Q6H PRN PRN Reason: NAUSEA AND/OR VOMITING Prednisone (Deltasone -) 10 mg PO DAILY [facility] Last Admin: 11/18/16 09:57 Dose: Not Given Sevelamer Carbonate (Renvela -) 800 mg PO TIDCM [facility] Last Admin: 11/18/16 14:14 Dose: Not Given - Objective Vital Signs: Vital Signs Temperature 99.7 F H 11/18/16 14:04 Pulse Rate 114 H 11/18/16 14:04 Respiratory Rate 20 11/18/16 14:04 Blood Pressure 138/68 11/18/16 14:04 O2 Sat by Pulse Oximetry (%) 100 11/18/16 08:52 Constitutional: Yes: Other (Weak) Neck: Yes: Supple Cardiovascular: Yes: Regular Rate and Rhythm Respiratory: Yes: Other (coarse breath sounds b/l) Gastrointestinal: Yes: Normal Bowel Sounds, Soft Extremities: Yes: Other (LUE AVF +bruit) Integumentary: Yes: Other (Left groin shiley in place) Neurological: Yes: Lethargy Labs: CBC, BMP 11/18/16 06:30 11/18/16 06:30 INR, PTT INR 1.04 (0.82-1.09) 11/15/16 13:11 Microbiology 11/17/16 13:40 Blood - Shiley Catheter Blood Culture - Preliminary NO GROWTH OBTAINED AFTER 24 HOURS, INCUBATION TO CONTINUE FOR 4 DAYS. 11/17/16 13:15 Blood - Shiley Catheter Blood Culture - Preliminary NO GROWTH OBTAINED AFTER 24 HOURS, INCUBATION TO CONTINUE FOR 4 DAYS. - ....Imaging Chest X-ray: Report Reviewed Problem List - Problems (1) Dialysis AV fistula malfunction Code(s): T82.590A - [facility] COMPL OF SURGICALLY CREATED ARTERIOVENOUS FISTULA, INIT Qualifiers: Encounter type: initial encounter Qualified Code(s): T82.590A - Other mechanical complication of surgically created arteriovenous fistula, initial encounter (2) ESRD (end stage renal disease) Code(s): N18.6 - END STAGE RENAL DISEASE (3) Lethargic Code(s): R53.83 - OTHER FATIGUE (4) Leukocytosis, unspecified Code(s): D72.829 - ELEVATED WHITE BLOOD CELL COUNT, UNSPECIFIED Assessment/Plan AVF clot s/p thrombectomy , failed - Lt groin shiley placed r/o Sepsis - possible PNA Cough Lethargy with mild temp elevation Leukocytosis - Further increase in wbc -- recommend Vancomycin 1 gram IV post HD (next session tomorrow) , add Zosyn 2.25G IV Q8h empirically -- monitor wbc trend -- f/u pending culture results -- monitor vitals closely
[2016-11-18] MEDS: PIPERACILLIN/TAZOB 2.25 GM 50 ML IVPB SCH (18:41)
--- NOTE | 2016-11-18 21:00 | PN ---
Progress Note, Physician History of Present Illness: Pt spiked to 101 and is slightly tachy - Current Medication List Current Medications: Active Medications Acetaminophen (Tylenol Suppository -) 650 mg UT Q6H PRN PRN Reason: FEVER OR PAIN Last Admin: 11/17/16 21:30 Dose: 650 mg Amlodipine Besylate (Norvasc -) 10 mg PO DAILY [facility] Last Admin: 11/18/16 09:57 Dose: Not Given Carvedilol (Coreg -) 25 mg PO BID [facility] Last Admin: 11/18/16 09:57 Dose: Not Given Cinacalcet (Sensipar -) 30 mg PO DAILY [facility] Last Admin: 11/18/16 09:57 Dose: Not Given Clonidine (Catapres -) 0.3 mg PO TID [facility] Last Admin: 11/18/16 14:14 Dose: Not Given Divalproex Sodium (Depakote -) 500 mg PO TID [facility] Last Admin: 11/18/16 14:14 Dose: Not Given Docusate Sodium (Colace -) 300 mg PO [facility] Last Admin: 11/17/16 23:37 Dose: Not Given Ferrous Sulfate (Feosol -) 325 mg PO DAILY [facility] Last Admin: 11/18/16 09:57 Dose: Not Given Heparin Sodium (Porcine) (Heparin -) 5,000 unit SQ BID [facility] Last Admin: 11/18/16 10:09 Dose: 5,000 unit Piperacillin Sod/Tazobactam Sod (Zosyn 2.25gm Ivpb (Pre-Docked)) 50 mls @ 100 mls/hr IVPB Q8H-IV [facility] PRN Reason: Protocol Last Admin: 11/18/16 18:41 Dose: 100 mls/hr Insulin Detemir (Levemir Vial) 18 units SQ [facility] Last Admin: 11/17/16 23:46 Dose: Not Given Lactulose (Cephulac (Oral Use)) 10 gm PO DAILY [facility] Last Admin: 11/18/16 09:57 Dose: Not Given Non-Formulary Medication (Polyethylene Glycol [Polyox Wsr-301]) 1 gm MC [facility] Non-Formulary Medication (Umeclidinium [place] [Incruse Ellipta]) 62.5 mcg IH DAILY [facility] Ondansetron HCl (Zofran Injection) 4 mg IVPB Q6H PRN PRN Reason: NAUSEA AND/OR VOMITING Prednisone (Deltasone -) 10 mg PO DAILY [facility] Last Admin: 11/18/16 09:57 Dose: Not Given Sevelamer Carbonate (Renvela -) 800 mg PO TIDCM [facility] Last Admin: 11/18/16 18:41 Dose: Not Given - Objective Vital Signs: Vital Signs Temperature 99.8 F H 11/18/16 18:00 Pulse Rate 116 H 11/18/16 18:00 Respiratory Rate 18 11/18/16 18:00 Blood Pressure 116/74 11/18/16 18:00 O2 Sat by Pulse Oximetry (%) 100 11/18/16 08:52 Constitutional: Yes: Well Nourished HENT: Yes: Other ((+) ?abscess Rt side of nose) Cardiovascular: Yes: Tachycardia Respiratory: Yes: Diminished Gastrointestinal: Yes: WNL, Normal Bowel Sounds, Soft Extremities: Yes: Other ((+) AV fistular LUE) Labs: CBC, BMP 11/18/16 06:30 11/18/16 06:30 INR, PTT INR 1.04 (0.82-1.09) 11/15/16 13:11 Problem List - Problems (1) Sepsis Assessment/Plan: Blood/urine cultures remain negative Elevated WBC could also be secondary to prednisone IV atnibxs as per ID(vanco w/ HD and IV zosyn added) Will check ct scan abd due to abdominal tenderness? GI consult Code(s): A41.9 - SEPSIS, UNSPECIFIED ORGANISM (2) Lethargic Assessment/Plan: infectious/metabolic encephalopathy NPO until pt more awake Neuro consult Ct scan head was unremarkable Code(s): R53.83 - OTHER FATIGUE (3) Dialysis AV fistula malfunction Assessment/Plan: S/P thrombectomy and stent placement of lt av fistula Pt also had placement of shiley cath in lt femoral vein Further management as per [facility] Code(s): T82.590A - [facility] COMPL OF SURGICALLY CREATED ARTERIOVENOUS FISTULA, INIT Qualifiers: Encounter type: initial encounter Qualified Code(s): T82.590A - Other mechanical complication of surgically created arteriovenous fistula, initial encounter (4) ESRD (end stage renal disease) Assessment/Plan: Dialysis as per renal Code(s): N18.6 - END STAGE RENAL DISEASE (5) Diabetes Assessment/Plan: Cont levemir/sliding scal w/ novolog Code(s): E11.9 - TYPE 2 DIABETES MELLITUS WITHOUT COMPLICATIONS (6) Anemia Assessment/Plan: Pt has been tranfused 2 units PRBC's4 Cpnt to monitor H/H Cont feoso4 Code(s): D64.9 - ANEMIA, UNSPECIFIED (7) HTN (hypertension) Assessment/Plan: BP borderline hypotensive Hold coreg/norvasc Cardio consult Will check echo Cont catapress Code(s): I10 - ESSENTIAL (PRIMARY) HYPERTENSION (8) Bipolar 1 disorder Assessment/Plan: depakote on hold until pt more awake Code(s): F31.9 - BIPOLAR DISORDER, UNSPECIFIED
[2016-11-18] MEDS ORDERED: SODIUM CHLORIDE 0.45% 1,000 ML IV SCH (22:45)
[2016-11-18] MEDS: DOCUSATE SODIUM 100 MG CAPSULE (FP) PO SCH (23:26)
[2016-11-18] MEDS: INSULIN DETEMIR 100 UNITS/ML MDV SQ SCH (23:32)
[2016-11-19] MEDS: ACETAMINOPHEN 650 MG SUPP.RECT PR PRN (02:12)
[2016-11-19] MEDS: PIPERACILLIN/TAZOB 2.25 GM 50 ML IVPB SCH ×3 (02:12→17:57)
[2016-11-19 04:15] LABS: CPK 236 IU/L (26-192); TROPONIN I 0.06 ng/ml (0.00-0.05)
[2016-11-19] MEDS: cloNIDine HCL 0.1 MG TABLET PO SCH ×3 (06:07→22:51)
[2016-11-19] MEDS: DIVALPROEX SODIUM 250 MG TABLET E.C. (FP) PO SCH ×3 (06:07→22:51)
[2016-11-19 07:36] LABS: BASOPHIL 0.3 % (0-2.0); EOSINOPHIL 0.6 % (0-4.5); MCH 29.8 pg (25.7-33.7); MCHC 32.1 g/dl (32.0-36.0); NEUTROPHILS 91.4 % (42.8-82.8); PLATELET COUNT 257 K/MM3 (134-434); RDW 20.1 % (11.6-15.6); WHITE BLOOD COUNT 19.2 K/mm3 (4.0-10.0)
[2016-11-19 08:18] LABS: ALBUMIN 2.2 g/dl (3.4-5.0); ANION GAP 15 (8-16); CALCIUM 10.2 mg/dL (8.5-10.1); CO2 25 mmol/L (21-32); GLUCOSE,RANDOM 195 mg/dL (74-106); SGOT/AST 20 U/L (15-37); SGPT/ALT < 6 U/L (12-78)
[2016-11-19 08:27] LABS: ALK PHOS 101 U/L (45-117); BILIRUBIN,TOTAL 0.4 mg/dL (0.2-1.0); THYROID STIMULATING HORMONE 2.43 uIU/ml (0.358-3.74); TOT PROT 6.3 g/dl (6.4-8.2)
[2016-11-19 09:13] LABS: CREATININE 11.1 mg/dL (0.55-1.02)
[2016-11-19] MEDS: predniSONE 10 MG TABLET (UD) PO SCH (09:57)
[2016-11-19] MEDS: LACTULOSE 20 GM/30 ML UDC (FOR ORAL USE ONLY) PO SCH (09:57)
[2016-11-19] MEDS: SEVELAMER CARBONATE 800 MG TAB (FP) PO SCH ×3 (09:57→17:56)
[2016-11-19] MEDS: FERROUS SO4 325 MG TABLET (FP) PO SCH (09:58)
[2016-11-19] MEDS: CINACALCET HCL 30 MG TAB (FP) PO SCH (09:58)
[2016-11-19] MEDS: HEPARIN NA (PORCINE) 5,000 UNITS/ML 1ML VIAL SQ SCH ×2 (10:16→22:52)
--- NOTE | 2016-11-19 10:43 | CON.CARD ---
Consult Consult Specialty:: Cardiology Referred by:: Dr. Car Reason for Consultation:: elevated troponin - History of Present Illness Chief Complaint: admitted for nonfunctioning HD access History of Present Illness: 71 year old woman ESRD on HD, htn, dm, bipolar, admitted for nonfunction HD access noted to have fever and sinus tachycardia and troponin was done slightly elevated. pt seen and examined today in nad. pt opens eyes but does not speak. no reported chest pain or sob. - History Source History Provided By: Medical Record Limitations to Obtaining History: Poor Historian - Past Medical History Cardio/Vascular: Yes: HTN, Hyperlipdemia Pulmonary: Yes: Asthma, COPD Gastrointestinal: No: Ascites, Cancer, Constipation, Crohn's Disease, Diverticulitis, Diverticulosis, Esophageal Varices, Gastritis, GERD, GI Bleed, Hemorrhoids, Hiatal Hernia, Inflamatory Bowel Disease, Irritable Bowel Disease, Pancreatitis, Peptic Ulcer Disease, Ulcerative Colitis, Other Hepatobiliary: No: Cirrhosis, Cholelithiasis, Cholecystitis, Choledocholithiasis , Hepatitis A, Hepatitis B, Hepatitis C, Other Renal/: Yes: Renal Failure, Hemodialysis ...: No Psych: Yes: Bipolar Endocrine: Yes: Diabetes Mellitus - Past Surgical History Past Surgical History: Yes: AV Fistula/Graft - Alcohol/Substance Use Hx Alcohol Use: No - Smoking History Smoking history: Former smoker Have you smoked in the past 12 months: No Aproximately how many cigarettes per day: 3 If you are a former smoker, when did you quit?: last year Home Medications - Allergies Allergies/Adverse Reactions: Allergies Allergy/AdvReac Type Severity Reaction Status Date / Time labetalol Allergy Intermediate Difficulty Verified 11/15/16 12:25 Breathing latanoprost [From Xalatan] Allergy Intermediate Difficulty Verified 11/15/16 12: 25 Breathing calcium acetate [From PhosLo] Allergy Verified 11/16/16 01:53 peanut Allergy Verified 11/15/16 12:25 - Home Medications Home Medications: Ambulatory Orders Albuterol 0.083% Nebulizer Lizeth [Ventolin 0.083% Nebulizer Soln -] 1 amp IH BID 02/14/15 Amlodipine Besylate 10 mg PO DAILY 02/14/15 Carvedilol [Coreg] 25 mg PO BID 02/14/15 Cinacalcet HCl [Sensipar] 30 mg PO DAILY 02/14/15 Clonidine HCl [Catapres] 0.3 mg PO TID 02/14/15 Docusate Sodium [Colace -] 3 cap PO HS 02/14/15 Ferrous Sulfate 325 mg PO DAILY 02/14/15 Gabapentin 100 mg PO TID 02/14/15 Haloperidol [Haldol -] 10 mg PO HS 02/14/15 Acetaminophen [Pain Relief] 650 mg PO PRN PRN 11/14/16 Ammonium Lactate [[place]ie-Hydrolac] 240 gm TP HS 11/14/16 Divalproex [Depakote -] 500 mg PO TID 11/14/16 Guaifenesin/D-Methorphan Hb [Diabetic Tussin Dm Liquid] 118 ml PO PRN PRN Insulin (Levemir) [Levemir Vial] 18 unit SQ HS 11/14/16 Insulin Aspart [Novolog] 100 unit SQ TID 11/14/16 Insulin Lispro [Humalog] 100 unit SQ PRN PRN 11/14/16 Lactulose 10 gm PO DAILY 11/14/16 Lorazepam 1 mg PO PRN PRN 11/14/16 Magnesium Hydroxide [Milk of Magnesia] 400 mg PO PRN 11/14/16 Menthol [Bengay Ultra Strength] 1 each TP DAILY 11/14/16 Na Phos,M-B/Na Phos,Di-Ba [Fleet Enema] 133 ml RC PRN PRN 11/14/16 Polyethylene Glycol [Polyox Wsr-301] 1 gm MC 11/14/16 Prednisone 10 mg PO DAILY 11/14/16 Sevelamer Carbonate [Renvela] 800 mg PO TID 11/14/16 Umeclidinium [place] [Incruse Ellipta] 62.5 mcg IH DAILY 11/14/16 Vitamin B Comp W-C [Nephro-Lorenzo -] 1 tablet PO DAILY 11/14/16 Family Disease History - Family Disease History Family History: Denies Review of Systems - Review of Systems Constitutional: reports: Fever, Malaise. denies: No Symptoms, Chills, Diaphoresis, Lethargy, Loss of Appetite, Night Sweats, Unintentional Wgt. Loss, Weakness, Other Eyes: denies: No Symptoms, Blind Spots, Blurred Vision, Double Vision, Eye Pain , Floaters, Photophobia, Recent Change in Vision, Other HENT: denies: No Symptoms, Difficult Swallowing, Ear Discharge, Ear Pain, Epistaxis, Gingival Bleeding, Hearing Loss, Mouth Swelling, Nasal Congestion, Ocular Prosthesis, Throat Pain, Toothache, Ringing in Ears, Other Neck: denies: No Symptoms, Decreased ROM, Lumps, Pain on Movement, Stiffness, Swollen Glands, Tenderness, Other Cardiovascular: denies: No Symptoms, Chest Pain, Edema, Palpitations, Shortness of Breath, Other Respiratory: denies: No Symptoms, Cough, Exercise Intolerance, Hemoptysis, Orthopnea, PND, Snoring, SOB, SOB on Exertion, Wheezing, Other Gastrointestinal: denies: No Symptoms, Abdominal Pain, Bloating, Constipation, Diarrhea, Dysphagia, Indigestion, Melena, Nausea, Rectal Bleeding, Vomiting, Vomiting Blood, Other Genitourinary: denies: No Symptoms, Burning, Discharge, Dysuria, Flank Pain, Frequency, Hematuria, Incontinence, Lesions, Menses, Pain, Testicular Mass, Testicular Pain, Testicular Swelling, Urgency, Vaginal Bleeding, Other Breasts: denies: No Symptoms Reported, See HPI, Breast Implants, Discharge from Nipple, Lumps, Pain, Skin Changes, Other Musculoskeletal: denies: No Symptoms, Back Pain, Crepitus, Decreased ROM, Extremity Pain, Joint Pain, Joint Swelling, Muscle Pain, Muscle Cramps, Muscle Weakness, Other Integumentary: denies: No Symptoms, Blister, Bruising, Change in Color, Eczema, Erythema, Incision, Lesions, Lump, Pallor, Pruritis, Rash, Wound, Other Neurological: reports: Change in LOC. denies: No Symptoms, Change in Speech, Confusion, Dizziness, Headache, Incoordination, Numbness, Parasthesia, Pre- Existing Deficit, Seizure, Syncope, Tremors, Unsteady Gait, Weakness, Other Endocrine: denies: No Symptoms, Excessive Sweating, Flushing, Increased Hunger, Increased Thirst, Intolerance to Cold, Intolerance to Heat, Unexplained Weight Gain, Unexplained Weight Loss, Other Hematology/Lymphatic: denies: No Symptoms, Easily Bruised, Excessive Bleeding, Swollen Glands, Other Psychiatric: denies: No Symptoms, Altered Sleep Pattern, Anxiety, Depression, Hallucinations, Panic, Paranoia, Suicidal, Other - Risk Factors Known Risk Factors: Yes: Diabetes Mellitus, Hypercholesterolemia, Hypertension, Physical Inactivity Vital Signs: Vital Signs Temperature 99.3 F 11/19/16 10:00 Pulse Rate 112 H 11/19/16 10:36 Respiratory Rate 18 11/19/16 10:36 Blood Pressure 114/47 11/19/16 10:36 O2 Sat by Pulse Oximetry (%) 98 11/18/16 21:00 Constitutional: Yes: No Distress, Calm Eyes: Yes: Conjunctiva Clear, EOM Intact HENT: Yes: Atraumatic, Normocephalic Neck: Yes: Supple, Trachea Midline Respiratory: Yes: Regular, Diminished. No: Rales, Rhonchi, Wheezes Gastrointestinal: Yes: Normal Bowel Sounds, Soft. No: Distention, Tenderness Cardiovascular: Yes: Tachycardia. No: Regular Rate and Rhythm, Bradycardia, Pulse Irregular, Gallop, Rub, Varicosities JVD: No Carotid Bruit: No PMI: Non-Displaced Heart Sounds: Yes: S1, S2. No: Split S2, S3, S4, Clicks, Gallop, Rub, Bruit Murmur: No: Systolic Murmur, Diastolic Murmur Musculoskeletal: Yes: Muscle Weakness Edema: No Neurological: Yes: Alert. No: Oriented Psychiatric: Yes: Alert. No: Oriented - Other Data Labs, Other Data: CBC, BMP 11/19/16 07:24 11/19/16 07:24 INR, PTT INR 1.04 (0.82-1.09) 11/15/16 13:11 Troponin, BNP 11/19/16 03:30 Troponin I 0.06 H Troponin, BNP 11/19/16 03:30 Troponin I 0.06 H ekg-sinus tach 104bpm nsst Echo: Pending Imaging - Results Chest X-ray: Report Reviewed, Image Reviewed EKG: Report Reviewed, Image Reviewed Other: Report Reviewed, Image Reviewed (tele-sinus tach, no arrhythmia) Assessment/Plan elevated troponin fever, tachycardia, presumed sepsis nonfunctioning HD access Recc Troponin slightly elevated with normal CK and trop did not trend up-unlikely Type I MD, more likely secondary to sepsis and anemia in setting of ESRD f/up echo to assess for strutural abnl anemia improved with PRBCs receiving abx for sepsis, f/up blood cx cont tele for now will consider ischemic evaluation once medically improves
[2016-11-19] MEDS ORDERED: EPOETIN ALFA 6,000 UNIT, EPOETIN ALFA 2,000 UNIT IVPUSH ONE (11:00)
[2016-11-19] MEDS ORDERED: VANCOMYCIN 1 GRAM (PRE-DOCKED) 250 ML IVPB ONE (12:00)
[2016-11-19 14:11] LABS: HEP B SURFACE AB Non Reactive (.)
--- NOTE | 2016-11-19 14:18 | PN ---
Progress Note, Physician History of Present Illness: Pt seen and examined at bedside. She is currently getting HD. She denies shortness of breath. - Current Medication List Current Medications: Active Medications Acetaminophen (Tylenol Suppository -) 650 mg [place] Q6H PRN PRN Reason: FEVER OR PAIN Last Admin: 11/19/16 02:12 Dose: 650 mg Cinacalcet (Sensipar -) 30 mg PO DAILY [facility] Last Admin: 11/19/16 09:58 Dose: Not Given Clonidine (Catapres -) 0.3 mg PO TID [facility] Last Admin: 11/19/16 06:07 Dose: Not Given Divalproex Sodium (Depakote -) 500 mg PO TID [facility] Last Admin: 11/19/16 06:07 Dose: Not Given Docusate Sodium (Colace -) 300 mg PO HS [facility] Last Admin: 11/18/16 23:26 Dose: Not Given Ferrous Sulfate (Feosol -) 325 mg PO DAILY [facility] Last Admin: 11/19/16 09:58 Dose: Not Given Heparin Sodium (Porcine) (Heparin -) 5,000 unit SQ BID [facility] Last Admin: 11/18/16 23:26 Dose: 5,000 unit Piperacillin Sod/Tazobactam Sod (Zosyn 2.25gm Ivpb (Pre-Docked)) 50 mls @ 100 mls/hr IVPB Q8H-IV [facility] PRN Reason: Protocol Last Admin: 11/19/16 02:12 Dose: 100 mls/hr Sodium Chloride (1/2 Normal Saline) 1,000 mls @ 50 mls/hr IV ASDIR [facility] Stop: 11/19/16 22:41 Last Admin: 11/18/16 23:24 Dose: 50 mls/hr Insulin Detemir (Levemir Vial) 18 units SQ HS [facility] Last Admin: 11/18/16 23:32 Dose: Not Given Lactulose (Cephulac (Oral Use)) 10 gm PO DAILY [facility] Last Admin: 11/19/16 09:57 Dose: Not Given Non-Formulary Medication (Polyethylene Glycol [Polyox Wsr-301]) 1 gm MC [facility] Non-Formulary Medication (Umeclidinium [place] [Incruse Ellipta]) 62.5 mcg IH DAILY [facility] Ondansetron HCl (Zofran Injection) 4 mg IVPB Q6H PRN PRN Reason: NAUSEA AND/OR VOMITING Prednisone (Deltasone -) 10 mg PO DAILY [facility] Last Admin: 11/19/16 09:57 Dose: Not Given Sevelamer Carbonate (Renvela -) 800 mg PO TIDCM [facility] Last Admin: 11/19/16 09:57 Dose: Not Given - Objective Vital Signs: Vital Signs Temperature 99.3 F 11/19/16 10:00 Pulse Rate 111 H 11/19/16 13:35 Respiratory Rate 18 11/19/16 13:35 Blood Pressure 130/61 11/19/16 13:35 O2 Sat by Pulse Oximetry (%) 98 11/19/16 09:00 Constitutional: Yes: Calm Eyes: Yes: Conjunctiva Clear HENT: Yes: Atraumatic Neck: Yes: Supple Cardiovascular: Yes: S1, S2 Respiratory: Yes: CTA Bilaterally Gastrointestinal: Yes: Soft, Abdomen, Obese Genitourinary: Yes: WNL Edema: No Neurological: Yes: Oriented Labs: CBC, BMP 11/19/16 07:24 11/19/16 07:24 INR, PTT INR 1.04 (0.82-1.09) 11/15/16 13:11 Problem List - Problems (1) Dialysis AV fistula malfunction Code(s): T82.590A - [facility] COMPL OF SURGICALLY CREATED ARTERIOVENOUS FISTULA, INIT Qualifiers: Encounter type: initial encounter Qualified Code(s): T82.590A - Other mechanical complication of surgically created arteriovenous fistula, initial encounter (2) ESRD (end stage renal disease) Code(s): N18.6 - END STAGE RENAL DISEASE Assessment/Plan Current Medications Generic Name Dose Route Start Last Admin Trade Name Freq PRN Reason Stop Dose Admin Acetaminophen 650 mg 11/17/16 22:13 11/19/16 02:12 Tylenol Suppository - TN 650 mg Q6H PRN Administration FEVER OR PAIN Cinacalcet 30 mg 11/17/16 10:00 11/19/16 09:58 Sensipar - PO Not Given DAILY [facility] Clonidine 0.3 mg 11/16/16 14:00 11/19/16 06:07 Catapres - PO Not Given TID [facility] Divalproex Sodium 500 mg 11/16/16 14:00 11/19/16 06:07 Depakote - PO Not Given TID [facility] Docusate Sodium 300 mg 11/16/16 22:00 11/18/16 23:26 Colace - PO Not Given HS [facility] Ferrous Sulfate 325 mg 11/17/16 10:00 11/19/16 09:58 Feosol - PO Not Given DAILY [facility] Heparin Sodium (Porcine) 5,000 unit 11/16/16 22:00 11/18/16 23:26 Heparin - SQ 5,000 unit BID [facility] Administration Piperacillin Sod/Tazobactam Sod 50 mls @ 100 mls/hr 11/18/16 18:00 11/19/16 02: 12 Zosyn 2.25gm Ivpb (Pre-Docked) IVPB 100 mls/hr Q8H-IV [facility] Administration Protocol Sodium Chloride 1,000 mls @ 50 mls/hr 11/18/16 22:45 11/18/16 23:24 1/2 Normal Saline IV 11/19/16 22:41 50 mls/hr ASDIR [facility] Administration Insulin Detemir 18 units 11/16/16 22:00 11/18/16 23:32 Levemir Vial SQ Not Given HS [facility] Lactulose 10 gm 11/17/16 10:00 11/19/16 09:57 Cephulac (Oral Use) PO Not Given DAILY [facility] Non-Formulary Medication 1 gm 11/16/16 22:00 Polyethylene Glycol [Polyox Wsr-301] MC HS [facility] Non-Formulary Medication 62.5 mcg 11/17/16 10:00 Umeclidinium [place] [Incruse Ellipta] IH DAILY [facility] Ondansetron HCl 4 mg 11/16/16 13:19 Zofran Injection IVPB Q6H PRN NAUSEA AND/OR VOMITING Prednisone 10 mg 11/17/16 10:00 11/19/16 09:57 Deltasone - PO Not Given DAILY [facility] Sevelamer Carbonate 800 mg 11/16/16 17:30 11/19/16 09:57 Renvela - PO Not Given TIDCM [facility] Impression 1. ESRD 2. AV fistula malfunction 3. DM 4. HTN 5. COPD 6. Bipolar 7. anemia 8. hyperkalemia Plan - HD today - stop fluids - remove femoral catheter - blood cultures negative to date - epogen on HD - hg is stable - discussed with vascular surgery - will follow Dr Morales
--- NOTE | 2016-11-19 14:57 | PN ---
Progress Note, Physician History of Present Illness: currently stbale no complaints - Current Medication List Current Medications: Active Medications Acetaminophen (Tylenol Suppository -) 650 mg DC Q6H PRN PRN Reason: FEVER OR PAIN Last Admin: 11/19/16 02:12 Dose: 650 mg Cinacalcet (Sensipar -) 30 mg PO DAILY [facility] Last Admin: 11/19/16 09:58 Dose: Not Given Clonidine (Catapres -) 0.3 mg PO TID [facility] Last Admin: 11/19/16 06:07 Dose: Not Given Divalproex Sodium (Depakote -) 500 mg PO TID [facility] Last Admin: 11/19/16 06:07 Dose: Not Given Docusate Sodium (Colace -) 300 mg PO HS [facility] Last Admin: 11/18/16 23:26 Dose: Not Given Ferrous Sulfate (Feosol -) 325 mg PO DAILY [facility] Last Admin: 11/19/16 09:58 Dose: Not Given Heparin Sodium (Porcine) (Heparin -) 5,000 unit SQ BID [facility] Last Admin: 11/18/16 23:26 Dose: 5,000 unit Piperacillin Sod/Tazobactam Sod (Zosyn 2.25gm Ivpb (Pre-Docked)) 50 mls @ 100 mls/hr IVPB Q8H-IV [facility] PRN Reason: Protocol Last Admin: 11/19/16 02:12 Dose: 100 mls/hr Insulin Detemir (Levemir Vial) 18 units SQ HS [facility] Last Admin: 11/18/16 23:32 Dose: Not Given Lactulose (Cephulac (Oral Use)) 10 gm PO DAILY [facility] Last Admin: 11/19/16 09:57 Dose: Not Given Non-Formulary Medication (Polyethylene Glycol [Polyox Wsr-301]) 1 gm MC [facility] Non-Formulary Medication (Umeclidinium [place] [Incruse Ellipta]) 62.5 mcg IH DAILY [facility] Ondansetron HCl (Zofran Injection) 4 mg IVPB Q6H PRN PRN Reason: NAUSEA AND/OR VOMITING Prednisone (Deltasone -) 10 mg PO DAILY [facility] Last Admin: 11/19/16 09:57 Dose: Not Given Sevelamer Carbonate (Renvela -) 800 mg PO TIDCM [facility] Last Admin: 11/19/16 09:57 Dose: Not Given - Objective Vital Signs: Vital Signs Temperature 99.3 F 11/19/16 10:00 Pulse Rate 111 H 11/19/16 13:35 Respiratory Rate 18 11/19/16 13:35 Blood Pressure 130/61 11/19/16 13:35 O2 Sat by Pulse Oximetry (%) 98 11/19/16 09:00 Constitutional: Yes: No Distress, Calm Cardiovascular: Yes: Regular Rate and Rhythm Respiratory: Yes: Regular, CTA Bilaterally Musculoskeletal: Yes: WNL Extremities: Yes: Other Neurological: Yes: Alert, Oriented Psychiatric: Yes: Alert Labs: CBC, BMP 11/19/16 07:24 11/19/16 07:24 INR, PTT INR 1.04 (0.82-1.09) 11/15/16 13:11 Assessment/Plan Problem List - Problems (1) Dialysis AV fistula malfunction Code(s): T82.590A - [facility] COMPL OF SURGICALLY CREATED ARTERIOVENOUS FISTULA, INIT Qualifiers: Encounter type: initial encounter Qualified Code(s): T82.590A - Other mechanical complication of surgically created arteriovenous fistula, initial encounter (2) ESRD (end stage renal disease) Code(s): N18.6 - END STAGE RENAL DISEASE (3) Lethargic Code(s): R53.83 - OTHER FATIGUE (4) Leukocytosis, unspecified Code(s): D72.829 - ELEVATED WHITE BLOOD CELL COUNT, UNSPECIFIED plan continue zosyn await for all cx reports to be back
--- NOTE | 2016-11-19 20:30 | PN ---
Progress Note (short form) - Note Progress Note: VAsc[facility] Surgery Shiley removed from left groin. no complications. Workup for high WBC. ID on case. Will be on stand by for access. Yimi Villa DO
--- NOTE | 2016-11-19 22:18 | PN ---
Progress Note, Physician History of Present Illness: Pt more awake - Current Medication List Current Medications: Active Medications Acetaminophen (Tylenol Suppository -) 650 mg IN Q6H PRN PRN Reason: FEVER OR PAIN Last Admin: 11/19/16 02:12 Dose: 650 mg Cinacalcet (Sensipar -) 30 mg PO DAILY [facility] Last Admin: 11/19/16 09:58 Dose: Not Given Clonidine (Catapres -) 0.3 mg PO TID [facility] Last Admin: 11/19/16 13:56 Dose: Not Given Divalproex Sodium (Depakote -) 500 mg PO TID [facility] Last Admin: 11/19/16 13:57 Dose: Not Given Docusate Sodium (Colace -) 300 mg PO HS [facility] Last Admin: 11/18/16 23:26 Dose: Not Given Ferrous Sulfate (Feosol -) 325 mg PO DAILY [facility] Last Admin: 11/19/16 09:58 Dose: Not Given Heparin Sodium (Porcine) (Heparin -) 5,000 unit SQ BID [facility] Last Admin: 11/19/16 10:16 Dose: 5,000 unit Piperacillin Sod/Tazobactam Sod (Zosyn 2.25gm Ivpb (Pre-Docked)) 50 mls @ 100 mls/hr IVPB Q8H-IV [facility] PRN Reason: Protocol Last Admin: 11/19/16 17:57 Dose: 100 mls/hr Insulin Detemir (Levemir Vial) 18 units SQ HS [facility] Last Admin: 11/18/16 23:32 Dose: Not Given Lactulose (Cephulac (Oral Use)) 10 gm PO DAILY [facility] Last Admin: 11/19/16 09:57 Dose: Not Given Non-Formulary Medication (Polyethylene Glycol [Polyox Wsr-301]) 1 gm MC [facility] Non-Formulary Medication (Umeclidinium [place] [Incruse Ellipta]) 62.5 mcg IH DAILY [facility] Ondansetron HCl (Zofran Injection) 4 mg IVPB Q6H PRN PRN Reason: NAUSEA AND/OR VOMITING Prednisone (Deltasone -) 10 mg PO DAILY [facility] Last Admin: 11/19/16 09:57 Dose: Not Given Sevelamer Carbonate (Renvela -) 800 mg PO TIDCM [facility] Last Admin: 11/19/16 17:56 Dose: Not Given - Objective Vital Signs: Vital Signs Temperature 98.9 F 11/19/16 18:00 Pulse Rate 122 H 11/19/16 18:00 Respiratory Rate 20 11/19/16 18:00 Blood Pressure 159/73 11/19/16 18:00 O2 Sat by Pulse Oximetry (%) 98 11/19/16 09:00 Constitutional: Yes: No Distress Neck: Yes: WNL, Supple Cardiovascular: Yes: WNL, Regular Rate and Rhythm Respiratory: Yes: WNL, Regular, CTA Bilaterally Gastrointestinal: Yes: WNL, Normal Bowel Sounds, Soft Labs: CBC, BMP 11/19/16 07:24 11/19/16 07:24 INR, PTT INR 1.04 (0.82-1.09) 11/15/16 13:11 Problem List - Problems (1) Sepsis Assessment/Plan: Urine culture (+) strept viridans however repeat culture remains negative BC remain negative IV vanco w/ dialysis Cont IV zosyn Code(s): A41.9 - SEPSIS, UNSPECIFIED ORGANISM (2) Dialysis AV fistula malfunction Assessment/Plan: S/P thrombectomy and stent placement of lt av fistula [place] removed Code(s): T82.590A - [facility] COMPL OF SURGICALLY CREATED ARTERIOVENOUS FISTULA, INIT Qualifiers: Encounter type: initial encounter Qualified Code(s): T82.590A - Other mechanical complication of surgically created arteriovenous fistula, initial encounter (3) ESRD (end stage renal disease) Assessment/Plan: Dialysis as per renal Code(s): N18.6 - END STAGE RENAL DISEASE (4) Diabetes Code(s): E11.9 - TYPE 2 DIABETES MELLITUS WITHOUT COMPLICATIONS (5) Anemia Code(s): D64.9 - ANEMIA, UNSPECIFIED (6) HTN (hypertension) Code(s): I10 - ESSENTIAL (PRIMARY) HYPERTENSION (7) Bipolar 1 disorder Code(s): F31.9 - BIPOLAR DISORDER, UNSPECIFIED (8) Lethargic Code(s): R53.83 - OTHER FATIGUE
[2016-11-19] MEDS: DOCUSATE SODIUM 100 MG CAPSULE (FP) PO SCH (22:51)
[2016-11-19] MEDS: INSULIN DETEMIR 100 UNITS/ML MDV SQ SCH (22:55)
[2016-11-20] MEDS: PIPERACILLIN/TAZOB 2.25 GM 50 ML IVPB SCH ×2 (02:18→09:15)
[2016-11-20] MEDS: DIVALPROEX SODIUM 250 MG TABLET E.C. (FP) PO SCH ×3 (08:06→22:03)
[2016-11-20] MEDS: cloNIDine HCL 0.1 MG TABLET PO SCH ×3 (08:06→22:03)
[2016-11-20] MEDS ORDERED: INSULIN (NOVOLOG) ASPART 100 UNITS/ML 10ML VIAL SQ ONE ×2 (08:30→18:30)
[2016-11-20] MEDS: predniSONE 10 MG TABLET (UD) PO SCH ×2 (09:14→09:28)
[2016-11-20] MEDS: LACTULOSE 20 GM/30 ML UDC (FOR ORAL USE ONLY) PO SCH (09:14)
[2016-11-20] MEDS: HEPARIN NA (PORCINE) 5,000 UNITS/ML 1ML VIAL SQ SCH ×2 (09:14→22:03)
[2016-11-20] MEDS: FERROUS SO4 325 MG TABLET (FP) PO SCH (09:14)
[2016-11-20] MEDS: SEVELAMER CARBONATE 800 MG TAB (FP) PO SCH ×3 (09:14→17:10)
[2016-11-20] MEDS: CINACALCET HCL 30 MG TAB (FP) PO SCH ×2 (09:15→09:28)
[2016-11-20] MEDS ORDERED: PT OWN MED DRAWER 7, Y5N ONE (09:26)
[2016-11-20] MEDS ORDERED: PIPERACILLIN/TAZOB 2.25 GM 2.25 GM in DEXTROSE 5%-WATER - 50 ML IVPB SCH (11:36)
--- NOTE | 2016-11-20 15:04 | PN ---
Progress Note, Physician History of Present Illness: Pt seen and examined at bedside. She has no complaints. - Current Medication List Current Medications: Active Medications Acetaminophen (Tylenol Suppository -) 650 mg [place] Q6H PRN PRN Reason: FEVER OR PAIN Last Admin: 11/19/16 02:12 Dose: 650 mg Cinacalcet (Sensipar -) 30 mg PO DAILY [facility] Last Admin: 11/20/16 09:28 Dose: 30 mg Clonidine (Catapres -) 0.3 mg PO TID [facility] Last Admin: 11/20/16 13:48 Dose: 0.3 mg Divalproex Sodium (Depakote -) 500 mg PO TID [facility] Last Admin: 11/20/16 13:48 Dose: 500 mg Docusate Sodium (Colace -) 300 mg PO HS [facility] Last Admin: 11/19/16 22:51 Dose: Not Given Ferrous Sulfate (Feosol -) 325 mg PO DAILY [facility] Last Admin: 11/20/16 09:14 Dose: Not Given Heparin Sodium (Porcine) (Heparin -) 5,000 unit SQ BID [facility] Last Admin: 11/20/16 09:14 Dose: 5,000 unit Piperacillin Sod/Tazobactam (Sod 2.25 gm/ Dextrose) 50 mls @ 100 mls/hr IVPB Q8H-IV [facility] PRN Reason: Protocol Stop: 11/25/16 10:29 Insulin Detemir (Levemir Vial) 18 units SQ HS [facility] Last Admin: 11/19/16 22:55 Dose: Not Given Lactulose (Cephulac (Oral Use)) 10 gm PO DAILY [facility] Last Admin: 11/20/16 09:14 Dose: Not Given Non-Formulary Medication (Polyethylene Glycol [Polyox Wsr-301]) 1 gm MC HS [facility] Non-Formulary Medication (Umeclidinium [place] [Incruse Ellipta]) 62.5 mcg IH DAILY [facility] Ondansetron HCl (Zofran Injection) 4 mg IVPB Q6H PRN PRN Reason: NAUSEA AND/OR VOMITING Prednisone (Deltasone -) 10 mg PO DAILY [facility] Last Admin: 11/20/16 09:28 Dose: 10 mg Sevelamer Carbonate (Renvela -) 800 mg PO TIDCM [facility] Last Admin: 11/20/16 12:35 Dose: Not Given - Objective Vital Signs: Vital Signs Temperature 99.4 F 11/20/16 10:00 Pulse Rate 118 H 11/20/16 10:00 Respiratory Rate 20 11/20/16 10:00 Blood Pressure 116/88 11/20/16 10:00 O2 Sat by Pulse Oximetry (%) 98 11/20/16 10:00 Constitutional: Yes: Calm Eyes: Yes: Conjunctiva Clear HENT: Yes: Atraumatic Neck: Yes: Supple Cardiovascular: Yes: S1, S2 Respiratory: Yes: On Nasal O2, Wheezes Gastrointestinal: Yes: Soft Genitourinary: Yes: WNL Musculoskeletal: Yes: WNL Edema: No Neurological: Yes: Oriented Labs: CBC, BMP 11/19/16 07:24 11/19/16 07:24 INR, PTT INR 1.04 (0.82-1.09) 11/15/16 13:11 Problem List - Problems (1) Dialysis AV fistula malfunction Code(s): T82.590A - [facility] COMPL OF SURGICALLY CREATED ARTERIOVENOUS FISTULA, INIT Qualifiers: Encounter type: initial encounter Qualified Code(s): T82.590A - Other mechanical complication of surgically created arteriovenous fistula, initial encounter (2) ESRD (end stage renal disease) Code(s): N18.6 - END STAGE RENAL DISEASE Assessment/Plan Current Medications Generic Name Dose Route Start Last Admin Trade Name Freq PRN Reason Stop Dose Admin Acetaminophen 650 mg 11/17/16 22:13 11/19/16 02:12 Tylenol Suppository - [place] 650 mg Q6H PRN Administration FEVER OR PAIN Cinacalcet 30 mg 11/17/16 10:00 11/20/16 09:28 Sensipar - PO 30 mg DAILY [facility] Administration Clonidine 0.3 mg 11/16/16 14:00 11/20/16 13:48 Catapres - PO 0.3 mg TID [facility] Administration Divalproex Sodium 500 mg 11/16/16 14:00 11/20/16 13:48 Depakote - PO 500 mg TID [facility] Administration Docusate Sodium 300 mg 11/16/16 22:00 11/19/16 22:51 Colace - PO Not Given HS [facility] Ferrous Sulfate 325 mg 11/17/16 10:00 11/20/16 09:14 Feosol - PO Not Given DAILY [facility] Heparin Sodium (Porcine) 5,000 unit 11/16/16 22:00 11/20/16 09:14 Heparin - SQ 5,000 unit BID [facility] Administration Piperacillin Sod/Tazobactam 50 mls @ 100 mls/hr 11/20/16 11:36 Sod 2.25 gm/ Dextrose IVPB 11/25/16 10:29 Q8H-IV [facility] Protocol Insulin Detemir 18 units 11/16/16 22:00 11/19/16 22:55 Levemir Vial SQ Not Given HS [facility] Lactulose 10 gm 11/17/16 10:00 11/20/16 09:14 Cephulac (Oral Use) PO Not Given DAILY [facility] Non-Formulary Medication 1 gm 11/16/16 22:00 Polyethylene Glycol [Polyox Wsr-301] MC HS [facility] Non-Formulary Medication 62.5 mcg 11/17/16 10:00 Umeclidinium [place] [Incruse Ellipta] IH DAILY [facility] Ondansetron HCl 4 mg 11/16/16 13:19 Zofran Injection IVPB Q6H PRN NAUSEA AND/OR VOMITING Prednisone 10 mg 11/17/16 10:00 11/20/16 09:28 Deltasone - PO 10 mg DAILY [facility] Administration Sevelamer Carbonate 800 mg 11/16/16 17:30 11/20/16 12:35 Renvela - PO Not Given TIDCM [facility] Impression 1. ESRD 2. AV fistula malfunction 3. DM 4. HTN 5. COPD 6. Bipolar 7. anemia 8. hyperkalemia 9. tachycardia Plan - repeat labs in am - will order cxr - will likely dialyze tomorrow - ID follow up - cultures negative so far - monitor hg - will follow Dr Morales
--- NOTE | 2016-11-20 15:57 | PN ---
Progress Note, Physician History of Present Illness: stable no new issues - Current Medication List Current Medications: Active Medications Acetaminophen (Tylenol Suppository -) 650 mg [place] Q6H PRN PRN Reason: FEVER OR PAIN Last Admin: 11/19/16 02:12 Dose: 650 mg Cinacalcet (Sensipar -) 30 mg PO DAILY [facility] Last Admin: 11/20/16 09:28 Dose: 30 mg Clonidine (Catapres -) 0.3 mg PO TID [facility] Last Admin: 11/20/16 13:48 Dose: 0.3 mg Divalproex Sodium (Depakote -) 500 mg PO TID [facility] Last Admin: 11/20/16 13:48 Dose: 500 mg Docusate Sodium (Colace -) 300 mg PO HS [facility] Last Admin: 11/19/16 22:51 Dose: Not Given Ferrous Sulfate (Feosol -) 325 mg PO DAILY [facility] Last Admin: 11/20/16 09:14 Dose: Not Given Heparin Sodium (Porcine) (Heparin -) 5,000 unit SQ BID [facility] Last Admin: 11/20/16 09:14 Dose: 5,000 unit Piperacillin Sod/Tazobactam (Sod 2.25 gm/ Dextrose) 50 mls @ 100 mls/hr IVPB Q8H-IV [facility] PRN Reason: Protocol Stop: 11/25/16 10:29 Insulin Detemir (Levemir Vial) 18 units SQ HS [facility] Last Admin: 11/19/16 22:55 Dose: Not Given Lactulose (Cephulac (Oral Use)) 10 gm PO DAILY [facility] Last Admin: 11/20/16 09:14 Dose: Not Given Non-Formulary Medication (Polyethylene Glycol [Polyox Wsr-301]) 1 gm MC [facility] Non-Formulary Medication (Umeclidinium [place] [Incruse Ellipta]) 62.5 mcg IH DAILY [facility] Ondansetron HCl (Zofran Injection) 4 mg IVPB Q6H PRN PRN Reason: NAUSEA AND/OR VOMITING Prednisone (Deltasone -) 10 mg PO DAILY [facility] Last Admin: 11/20/16 09:28 Dose: 10 mg Sevelamer Carbonate (Renvela -) 800 mg PO TIDCM [facility] Last Admin: 11/20/16 12:35 Dose: Not Given - Objective Vital Signs: Vital Signs Temperature 99.4 F 11/20/16 10:00 Pulse Rate 118 H 11/20/16 10:00 Respiratory Rate 20 11/20/16 10:00 Blood Pressure 116/88 11/20/16 10:00 O2 Sat by Pulse Oximetry (%) 98 11/20/16 10:00 Constitutional: Yes: No Distress, Calm Cardiovascular: Yes: S1, S2 Respiratory: Yes: Regular, Rhonchi Gastrointestinal: Yes: Normal Bowel Sounds, Soft Musculoskeletal: Yes: Other Extremities: Yes: Other Neurological: Yes: Alert Psychiatric: Yes: Alert Labs: CBC, BMP 11/19/16 07:24 11/19/16 07:24 INR, PTT INR 1.04 (0.82-1.09) 11/15/16 13:11 Assessment/Plan Problem List - Problems (1) Dialysis AV fistula malfunction Code(s): T82.590A - [facility] COMPL OF SURGICALLY CREATED ARTERIOVENOUS FISTULA, INIT Qualifiers: Encounter type: initial encounter Qualified Code(s): T82.590A - Other mechanical complication of surgically created arteriovenous fistula, initial encounter (2) ESRD (end stage renal disease) Code(s): N18.6 - END STAGE RENAL DISEASE (3) Lethargic Code(s): R53.83 - OTHER FATIGUE (4) Leukocytosis, unspecified Code(s): D72.829 - ELEVATED WHITE BLOOD CELL COUNT, UNSPECIFIED plan cx reports noted will switch abx to ceftrtiaxone await of sensitivities report rest as per primary
--- NOTE | 2016-11-20 16:28 | PN ---
Progress Note, Physician History of Present Illness: seen and examined today in [facility]. more alert but unable to answer questions, asks for water. no overnight events. no new complaints. - Current Medication List Current Medications: Active Medications Acetaminophen (Tylenol Suppository -) 650 mg [place] Q6H PRN PRN Reason: FEVER OR PAIN Last Admin: 11/19/16 02:12 Dose: 650 mg Cinacalcet (Sensipar -) 30 mg PO DAILY [facility] Last Admin: 11/20/16 09:28 Dose: 30 mg Clonidine (Catapres -) 0.3 mg PO TID [facility] Last Admin: 11/20/16 13:48 Dose: 0.3 mg Divalproex Sodium (Depakote -) 500 mg PO TID [facility] Last Admin: 11/20/16 13:48 Dose: 500 mg Docusate Sodium (Colace -) 300 mg PO HS [facility] Last Admin: 11/19/16 22:51 Dose: Not Given Ferrous Sulfate (Feosol -) 325 mg PO DAILY [facility] Last Admin: 11/20/16 09:14 Dose: Not Given Heparin Sodium (Porcine) (Heparin -) 5,000 unit SQ BID [facility] Last Admin: 11/20/16 09:14 Dose: 5,000 unit Ceftriaxone Sodium 1 gm/ (Dextrose) 50 mls @ 100 mls/hr IVPB DAILY [facility] Insulin Detemir (Levemir Vial) 18 units SQ HS [facility] Last Admin: 11/19/16 22:55 Dose: Not Given Lactulose (Cephulac (Oral Use)) 10 gm PO DAILY [facility] Last Admin: 11/20/16 09:14 Dose: Not Given Non-Formulary Medication (Polyethylene Glycol [Polyox Wsr-301]) 1 gm MC HS [facility] Non-Formulary Medication (Umeclidinium [place] [Incruse Ellipta]) 62.5 mcg IH DAILY [facility] Ondansetron HCl (Zofran Injection) 4 mg IVPB Q6H PRN PRN Reason: NAUSEA AND/OR VOMITING Prednisone (Deltasone -) 10 mg PO DAILY [facility] Last Admin: 11/20/16 09:28 Dose: 10 mg Sevelamer Carbonate (Renvela -) 800 mg PO TIDCM [facility] Last Admin: 11/20/16 12:35 Dose: Not Given - Objective Vital Signs: Vital Signs Temperature 99.4 F 11/20/16 10:00 Pulse Rate 118 H 11/20/16 10:00 Respiratory Rate 20 11/20/16 10:00 Blood Pressure 116/88 11/20/16 10:00 O2 Sat by Pulse Oximetry (%) 98 11/20/16 10:00 Constitutional: Yes: No Distress, Calm Eyes: Yes: Conjunctiva Clear, EOM Intact, PERRL HENT: Yes: Atraumatic, Normocephalic Neck: Yes: Supple Cardiovascular: Yes: Tachycardia, Murmur, S1, S2. No: Bradycardia, Pulse Irregular, Bruit, JVD, Gallop, Rub, S3, S4, Varicosities Respiratory: Yes: Regular, Diminished, Rhonchi. No: Rales, Wheezes Gastrointestinal: Yes: Normal Bowel Sounds, Soft. No: Distention, Tenderness Musculoskeletal: Yes: Muscle Weakness Edema: No Peripheral Pulses WNL: Yes Peripheral Pulses: Left Doralis Pedis: 2+, Right Dorsalis Pedis: 2+ Neurological: Yes: Alert Psychiatric: Yes: Alert Labs: CBC, BMP 11/19/16 07:24 11/19/16 07:24 INR, PTT INR 1.04 (0.82-1.09) 11/15/16 13:11 - ....Imaging Chest X-ray: Report Reviewed, Image Reviewed EKG: Report Reviewed, Image Reviewed Other: Report Reviewed, Image Reviewed (tele-sinus tach, no arrhythmia) Assessment/Plan elevated troponin fever, tachycardia, presumed sepsis nonfunctioning HD access Persistent sinus tach Recc Troponin slightly elevated with normal CK and trop did not trend up-unlikely Type I [place], more likely secondary to sepsis and anemia in setting of ESRD f/up echo to assess for strutural abnl, no report in chart anemia improved with PRBCs receiving abx for sepsis Pt with persistent sinus tachycardia despite no longer having a fever, will order a CTA chest to evaluate for PE cont tele for now will consider ischemic evaluation once medically improves, unlikely needs to be done as inpatient
[2016-11-20] MEDS ORDERED: cefTRIAXone SODIUM 1 GM VIAL ONE (16:55)
[2016-11-20] MEDS ORDERED: DEXTROSE 5%-WATER - 50 ML IVPB ONE (16:55)
[2016-11-20] MEDS: CEFTRIAXONE 1 GM in DEXTROSE 5%-WATER - 50 ML IVPB SCH (17:10)
--- NOTE | 2016-11-20 21:49 | PN ---
Progress Note, Physician History of Present Illness: No new complaints - Current Medication List Current Medications: Active Medications Acetaminophen (Tylenol Suppository -) 650 mg [place] Q6H PRN PRN Reason: FEVER OR PAIN Last Admin: 11/19/16 02:12 Dose: 650 mg Cinacalcet (Sensipar -) 30 mg PO DAILY [facility] Last Admin: 11/20/16 09:28 Dose: 30 mg Clonidine (Catapres -) 0.3 mg PO TID [facility] Last Admin: 11/20/16 13:48 Dose: 0.3 mg Divalproex Sodium (Depakote -) 500 mg PO TID [facility] Last Admin: 11/20/16 13:48 Dose: 500 mg Docusate Sodium (Colace -) 300 mg PO HS [facility] Last Admin: 11/19/16 22:51 Dose: Not Given Ferrous Sulfate (Feosol -) 325 mg PO DAILY [facility] Last Admin: 11/20/16 09:14 Dose: Not Given Heparin Sodium (Porcine) (Heparin -) 5,000 unit SQ BID [facility] Last Admin: 11/20/16 09:14 Dose: 5,000 unit Ceftriaxone Sodium 1 gm/ (Dextrose) 50 mls @ 100 mls/hr IVPB DAILY [facility] Last Admin: 11/20/16 17:10 Dose: 100 mls/hr Insulin Detemir (Levemir Vial) 18 units SQ HS [facility] Lactulose (Cephulac (Oral Use)) 10 gm PO DAILY [facility] Last Admin: 11/20/16 09:14 Dose: Not Given Non-Formulary Medication (Polyethylene Glycol [Polyox Wsr-301]) 1 gm MC HS [facility] Non-Formulary Medication (Umeclidinium [place] [Incruse Ellipta]) 62.5 mcg IH DAILY [facility] Ondansetron HCl (Zofran Injection) 4 mg IVPB Q6H PRN PRN Reason: NAUSEA AND/OR VOMITING Prednisone (Deltasone -) 10 mg PO DAILY [facility] Last Admin: 11/20/16 09:28 Dose: 10 mg Sevelamer Carbonate (Renvela -) 800 mg PO TIDCM [facility] Last Admin: 11/20/16 17:10 Dose: Not Given - Objective Vital Signs: Vital Signs Temperature 99.4 F 11/20/16 18:40 Pulse Rate 101 H 11/20/16 18:40 Respiratory Rate 18 11/20/16 18:40 Blood Pressure 142/66 11/20/16 18:40 O2 Sat by Pulse Oximetry (%) 98 11/20/16 18:00 Constitutional: Yes: Well Nourished Neck: Yes: WNL, Supple Cardiovascular: Yes: WNL, Regular Rate and Rhythm Respiratory: Yes: WNL, Regular, CTA Bilaterally Gastrointestinal: Yes: WNL, Normal Bowel Sounds, Soft Extremities: Yes: WNL Edema: No Labs: CBC, BMP 11/19/16 07:24 11/19/16 07:24 INR, PTT INR 1.04 (0.82-1.09) 11/15/16 13:11 Problem List - Problems (1) Sepsis Assessment/Plan: Urine culture (+) strept viridans however repeat culture remains negative BC remain negative IV vanco w/ dialysis Cont IV zosyn Check wbc in am Code(s): A41.9 - SEPSIS, UNSPECIFIED ORGANISM (2) Dialysis AV fistula malfunction Assessment/Plan: S/P thrombectomy and stent placement of lt av fistula Code(s): T82.590A - [facility] COMPL OF SURGICALLY CREATED ARTERIOVENOUS FISTULA, INIT Qualifiers: Encounter type: initial encounter Qualified Code(s): T82.590A - Other mechanical complication of surgically created arteriovenous fistula, initial encounter (3) ESRD (end stage renal disease) Assessment/Plan: Dialysis as per renal Code(s): N18.6 - END STAGE RENAL DISEASE (4) Diabetes Assessment/Plan: Cont levemir/sliding scal w/ novolog Code(s): E11.9 - TYPE 2 DIABETES MELLITUS WITHOUT COMPLICATIONS (5) Anemia Code(s): D64.9 - ANEMIA, UNSPECIFIED (6) HTN (hypertension) Code(s): I10 - ESSENTIAL (PRIMARY) HYPERTENSION (7) Bipolar 1 disorder Code(s): F31.9 - BIPOLAR DISORDER, UNSPECIFIED (8) Lethargic Code(s): R53.83 - OTHER FATIGUE
[2016-11-20] MEDS: DOCUSATE SODIUM 100 MG CAPSULE (FP) PO SCH (22:04)
[2016-11-20] MEDS: INSULIN DETEMIR 100 UNITS/ML MDV SQ SCH (22:04)
[2016-11-21] MEDS: DIVALPROEX SODIUM 250 MG TABLET E.C. (FP) PO SCH ×2 (06:00→14:16)
[2016-11-21] MEDS: cloNIDine HCL 0.1 MG TABLET PO SCH ×3 (06:00→22:33)
[2016-11-21] MEDS ORDERED: cefTRIAXone SODIUM 1 GM VIAL ONE (10:10)
[2016-11-21] MEDS ORDERED: DEXTROSE 5%-WATER - 50 ML IVPB ONE (10:10)
[2016-11-21] MEDS: HEPARIN NA (PORCINE) 5,000 UNITS/ML 1ML VIAL SQ SCH ×2 (10:21→22:33)
[2016-11-21] MEDS: FERROUS SO4 325 MG TABLET (FP) PO SCH (10:21)
[2016-11-21] MEDS: CEFTRIAXONE 1 GM in DEXTROSE 5%-WATER - 50 ML IVPB SCH (10:21)
[2016-11-21] MEDS: predniSONE 10 MG TABLET (UD) PO SCH (10:21)
[2016-11-21] MEDS ORDERED: PT OWN MED DRAWER 7, Y5N ONE ×3 (10:25→21:19)
[2016-11-21] MEDS: CINACALCET HCL 30 MG TAB (FP) PO SCH (10:26)
[2016-11-21] MEDS: LACTULOSE 20 GM/30 ML UDC (FOR ORAL USE ONLY) PO SCH (10:31)
[2016-11-21 10:35] LABS: BASOPHIL 0.4 % (0-2.0); MCHC 31.2 g/dl (32.0-36.0); MEAN CELL VOLUME 92.9 fl (80-96); MEAN PLT VOLUME 7.4 fl (7.5-11.1); NEUTROPHILS 80.7 % (42.8-82.8); PLATELET COUNT 277 K/MM3 (134-434); RDW 18.7 % (11.6-15.6); WHITE BLOOD COUNT 11.5 K/mm3 (4.0-10.0)
[2016-11-21 11:23] LABS: ANION GAP 14 (8-16); CALCIUM 9.1 mg/dL (8.5-10.1); CO2 28 mmol/L (21-32); GLUCOSE,RANDOM 286 mg/dL (74-106)
[2016-11-21 11:32] LABS: ALK PHOS 103 U/L (45-117); BILIRUBIN,TOTAL 0.3 mg/dL (0.2-1.0); SGOT/AST 15 U/L (15-37); SGPT/ALT 7 U/L (12-78); TOT PROT 5.7 g/dl (6.4-8.2)
[2016-11-21] MEDS: SEVELAMER CARBONATE 800 MG TAB (FP) PO SCH (12:00)
[2016-11-21] MEDS ORDERED: ALBUTEROL SO4 2.5/IPRATROPIUM 0.5 INH SOL 3 ML VIAL.NEB. NEB PRN (12:51)
--- NOTE | 2016-11-21 12:57 | CON.PULM ---
Consult Consult Specialty:: PULMONARY Referred by:: Dr. Car Reason for Consultation:: COPD - History of Present Illness Chief Complaint: clotted AVF History of Present Illness: 71yo female with h/o HTN, DM, ESRD on HD, bipolar disorder, COPD who was admitted for clotted AVF. Taken to the OR for thrombectomy and stent placement. Hospital course significant for fevers, found to have UTI started on IV antibiotics. Pt also with positive troponins, she denies shortness of breath or chest pain. Pt poor historian, unable to provide further history at this time. CXR showing atelectatic changes. - History Source History Provided By: Medical Record Limitations to Obtaining History: Clinical Condition - Past Medical History Cardio/Vascular: Yes: HTN, Hyperlipdemia Pulmonary: Yes: Asthma, COPD Renal/: Yes: Renal Failure, Hemodialysis ...: No Psych: Yes: Bipolar Endocrine: Yes: Diabetes Mellitus - Past Surgical History Past Surgical History: Yes: AV Fistula/Graft - Alcohol/Substance Use Hx Alcohol Use: No - Smoking History Smoking history: Former smoker Have you smoked in the past 12 months: No Aproximately how many cigarettes per day: 3 If you are a former smoker, when did you quit?: last year Home Medications - Allergies Allergies/Adverse Reactions: Allergies Allergy/AdvReac Type Severity Reaction Status Date / Time labetalol Allergy Intermediate Difficulty Verified 11/15/16 12:25 Breathing latanoprost [From Xalatan] Allergy Intermediate Difficulty Verified 11/15/16 12: 25 Breathing calcium acetate [From PhosLo] Allergy Verified 11/16/16 01:53 peanut Allergy Verified 11/15/16 12:25 - Home Medications Home Medications: Ambulatory Orders Albuterol 0.083% Nebulizer Lizeth [Ventolin 0.083% Nebulizer Soln -] 1 amp IH BID 02/14/15 Amlodipine Besylate 10 mg PO DAILY 02/14/15 Carvedilol [Coreg] 25 mg PO BID 02/14/15 Cinacalcet HCl [Sensipar] 30 mg PO DAILY 02/14/15 Clonidine HCl [Catapres] 0.3 mg PO TID 02/14/15 Docusate Sodium [Colace -] 3 cap PO HS 02/14/15 Ferrous Sulfate 325 mg PO DAILY 02/14/15 Gabapentin 100 mg PO TID 02/14/15 Haloperidol [Haldol -] 10 mg PO HS 02/14/15 Acetaminophen [Pain Relief] 650 mg PO PRN PRN 11/14/16 Ammonium Lactate [Tootie-Hydrolac] 240 gm TP HS 11/14/16 Divalproex [Depakote -] 500 mg PO TID 11/14/16 Guaifenesin/D-Methorphan Hb [Diabetic Tussin Dm Liquid] 118 ml PO PRN PRN Insulin (Levemir) [Levemir Vial] 18 unit SQ HS 11/14/16 Insulin Aspart [Novolog] 100 unit SQ TID 11/14/16 Insulin Lispro [Humalog] 100 unit SQ PRN PRN 11/14/16 Lactulose 10 gm PO DAILY 11/14/16 Lorazepam 1 mg PO PRN PRN 11/14/16 Magnesium Hydroxide [Milk of Magnesia] 400 mg PO PRN 11/14/16 Menthol [Bengay Ultra Strength] 1 each TP DAILY 11/14/16 Na Phos,M-B/Na Phos,Di-Ba [Fleet Enema] 133 ml RC PRN PRN 11/14/16 Polyethylene Glycol [Polyox Wsr-301] 1 gm MC 11/14/16 Prednisone 10 mg PO DAILY 11/14/16 Sevelamer Carbonate [Renvela] 800 mg PO TID 11/14/16 Umeclidinium Quincy [Incruse Ellipta] 62.5 mcg IH DAILY 11/14/16 Vitamin B Comp W-C [Nephro-Lorenzo -] 1 tablet PO DAILY 11/14/16 Family Disease History - Family Disease History Family History: Unable to Obtain Review of Systems Unable to obtain ROS, reason: poor historian Physical Exam Vital Sings: Vital Signs Temperature 99.6 F 11/21/16 06:00 Pulse Rate 96 H 11/21/16 06:00 Respiratory Rate 18 11/21/16 06:00 Blood Pressure 146/73 11/21/16 06:00 O2 Sat by Pulse Oximetry (%) 98 11/21/16 06:00 Constitutional: Yes: No Distress, Calm Eyes: Yes: Conjunctiva Clear, EOM Intact HENT: Yes: Atraumatic, Normocephalic Neck: Yes: Supple, Trachea Midline Cardiovascular: Yes: Tachycardia Respiratory: Yes: Regular, Diminished (decreased breath sounds at the bases) ...Clubbing: No Gastrointestinal: Yes: Normal Bowel Sounds, Soft. No: Tenderness Edema: No Labs: CBC, BMP 11/21/16 10:20 11/21/16 10:20 ABG Results ABG pH 7.44 (7.35-7.45) 11/17/16 15:41 ABG pCO2 at Pt Temp 40.0 mmHg (35-45) 11/17/16 15:41 ABG pO2 at Pt Temp 55.5 mmHg (70-100) L 11/17/16 15:41 ABG HCO3 26.5 meq/L (22-26) H 11/17/16 15:41 ABG O2 Sat (Measured) 87.5 % (90-98.9) L 11/17/16 15:41 ABG O2 Content 12.0 % vol (15-22) L 11/17/16 15:41 ABG Base Excess 2.6 meq/l (-2-2) H 11/17/16 15:41 Imaging - Results Chest X-ray: Report Reviewed, Image Reviewed (bibasilar atelectasis) Problem List - Problems (1) Bipolar 1 disorder Code(s): F31.9 - BIPOLAR DISORDER, UNSPECIFIED (2) Diabetes Code(s): E11.9 - TYPE 2 DIABETES MELLITUS WITHOUT COMPLICATIONS (3) Dialysis AV fistula malfunction Code(s): T82.590A - [facility] COMPL OF SURGICALLY CREATED ARTERIOVENOUS FISTULA, INIT Qualifiers: Encounter type: initial encounter Qualified Code(s): T82.590A - Other mechanical complication of surgically created arteriovenous fistula, initial encounter (4) ESRD (end stage renal disease) Code(s): N18.6 - END STAGE RENAL DISEASE (5) HTN (hypertension) Code(s): I10 - ESSENTIAL (PRIMARY) HYPERTENSION Assessment/Plan Clotted AVF s/p thrombectomy ESRD on HD Chest Pain UTI Atelectasis COPD HTN DM - low suspicion for PE, can defer systemic anticoagulation - will d/c CT chest, will order LE dopplers - continue antibiotics - encourage incentive spirometry - aspiration precautions - continue DVT prophylaxis Thank you for this consult Lee Singh MD
--- NOTE | 2016-11-21 13:02 | PN ---
Progress Note, Physician History of Present Illness: Pt seen and examined at bedside. She is more awake and interactive today. She denies shortness of breath. - Current Medication List Current Medications: Active Medications Acetaminophen (Tylenol Suppository -) 650 mg [place] Q6H PRN PRN Reason: FEVER OR PAIN Last Admin: 11/19/16 02:12 Dose: 650 mg Albuterol/Ipratropium (Duoneb -) 1 amp NEB Q6H PRN Cinacalcet (Sensipar -) 30 mg PO DAILY [facility] Last Admin: 11/21/16 10:26 Dose: 30 mg Clonidine (Catapres -) 0.3 mg PO TID [facility] Last Admin: 11/21/16 06:00 Dose: Not Given Divalproex Sodium (Depakote -) 500 mg PO TID [facility] Last Admin: 11/21/16 06:00 Dose: Not Given Docusate Sodium (Colace -) 300 mg PO HS [facility] Last Admin: 11/20/16 22:04 Dose: Not Given Ferrous Sulfate (Feosol -) 325 mg PO DAILY [facility] Last Admin: 11/21/16 10:21 Dose: 325 mg Heparin Sodium (Porcine) (Heparin -) 5,000 unit SQ BID [facility] Last Admin: 11/21/16 10:21 Dose: 5,000 unit Ceftriaxone Sodium 1 gm/ (Dextrose) 50 mls @ 100 mls/hr IVPB DAILY [facility] Last Admin: 11/21/16 10:21 Dose: 100 mls/hr Insulin Detemir (Levemir Vial) 18 units SQ HS [facility] Last Admin: 11/20/16 22:04 Dose: 18 units Lactulose (Cephulac (Oral Use)) 10 gm PO DAILY [facility] Last Admin: 11/21/16 10:31 Dose: 10 gm Ondansetron HCl (Zofran Injection) 4 mg IVPB Q6H PRN PRN Reason: NAUSEA AND/OR VOMITING Prednisone (Deltasone -) 10 mg PO DAILY [facility] Last Admin: 11/21/16 10:21 Dose: 10 mg Sevelamer Carbonate (Renvela -) 800 mg PO TIDCM [facility] Last Admin: 11/20/16 17:10 Dose: Not Given - Objective Vital Signs: Vital Signs Temperature 99.6 F 11/21/16 06:00 Pulse Rate 96 H 11/21/16 06:00 Respiratory Rate 18 08/23/17 06:00 Blood Pressure 146/73 11/21/16 06:00 O2 Sat by Pulse Oximetry (%) 98 11/21/16 06:00 Constitutional: Yes: Calm Eyes: Yes: Conjunctiva Clear HENT: Yes: Atraumatic Neck: Yes: Supple Cardiovascular: Yes: S1, S2 Respiratory: Yes: CTA Bilaterally, On Nasal O2 Gastrointestinal: Yes: Soft Genitourinary: Yes: WNL Musculoskeletal: Yes: WNL Edema: No Neurological: Yes: Oriented Psychiatric: Yes: Oriented Labs: CBC, BMP 11/21/16 10:20 11/21/16 10:20 INR, PTT INR 1.04 (0.82-1.09) 11/15/16 13:11 Problem List - Problems (1) Dialysis AV fistula malfunction Code(s): T82.590A - [facility] COMPL OF SURGICALLY CREATED ARTERIOVENOUS FISTULA, INIT Qualifiers: Encounter type: initial encounter Qualified Code(s): T82.590A - Other mechanical complication of surgically created arteriovenous fistula, initial encounter (2) ESRD (end stage renal disease) Code(s): N18.6 - END STAGE RENAL DISEASE Assessment/Plan Current Medications Generic Name Dose Route Start Last Admin Trade Name Freq PRN Reason Stop Dose Admin Acetaminophen 650 mg 11/17/16 22:13 11/19/16 02:12 Tylenol Suppository - FL 650 mg Q6H PRN Administration FEVER OR PAIN Albuterol/Ipratropium 1 amp 11/21/16 12:51 Duoneb - NEB Q6H PRN Cinacalcet 30 mg 11/17/16 10:00 11/21/16 10:26 Sensipar - PO 30 mg DAILY [facility] Administration Clonidine 0.3 mg 11/16/16 14:00 11/21/16 06:00 Catapres - PO Not Given TID IRIWN Divalproex Sodium 500 mg 11/16/16 14:00 11/21/16 06:00 Depakote - PO Not Given TID [facility] Docusate Sodium 300 mg 11/16/16 22:00 11/20/16 22:04 Colace - PO Not Given HS [facility]WIN Ferrous Sulfate 325 mg 11/17/16 10:00 11/21/16 10:21 Feosol - PO 325 mg DAILY [facility] Administration Heparin Sodium (Porcine) 5,000 unit 11/16/16 22:00 11/21/16 10:21 Heparin - SQ 5,000 unit BID [facility] Administration Ceftriaxone Sodium 1 gm/ 50 mls @ 100 mls/hr 11/20/16 16:00 11/21/16 10:21 Dextrose IVPB 100 mls/hr DAILY [facility] Administration Insulin Detemir 18 units 11/20/16 22:00 11/20/16 22:04 Levemir Vial SQ 18 units HS [facility] Administration Lactulose 10 gm 11/17/16 10:00 11/21/16 10:31 Cephulac (Oral Use) PO 10 gm DAILY [facility] Administration Ondansetron HCl 4 mg 11/16/16 13:19 Zofran Injection IVPB Q6H PRN NAUSEA AND/OR VOMITING Prednisone 10 mg 11/17/16 10:00 11/21/16 10:21 Deltasone - PO 10 mg DAILY [facility] Administration Sevelamer Carbonate 800 mg 11/16/16 17:30 11/20/16 17:10 Renvela - PO Not Given TIDCM [facility] Impression 1. ESRD 2. AV fistula malfunction 3. DM 4. HTN 5. COPD 6. Bipolar 7. anemia 8. hyperkalemia 9. tachycardia Plan - discussed with ID, pt can have permacath placed - cxr reviewed - discussed with vascular, will arrange for permacath - will likely dialyze in am - pt had HD on Saturday - cultures negative so far - monitor hg - will follow Dr Morales
--- NOTE | 2016-11-21 14:42 | PN ---
Progress Note, Physician History of Present Illness: seen and examined today in nad. awake and alert. able to identify that she is at [facility]. no overnight events. no new complaints. - Current Medication List Current Medications: Active Medications Acetaminophen (Tylenol Suppository -) 650 mg [place] Q6H PRN PRN Reason: FEVER OR PAIN Last Admin: 11/19/16 02:12 Dose: 650 mg Albuterol/Ipratropium (Duoneb -) 1 amp NEB Q6H PRN Cinacalcet (Sensipar -) 30 mg PO DAILY [facility] Last Admin: 11/21/16 10:26 Dose: 30 mg Clonidine (Catapres -) 0.3 mg PO TID [facility] Last Admin: 11/21/16 14:15 Dose: 0.3 mg Divalproex Sodium (Depakote -) 500 mg PO TID [facility] Last Admin: 11/21/16 14:16 Dose: Not Given Docusate Sodium (Colace -) 300 mg PO HS [facility] Last Admin: 11/20/16 22:04 Dose: Not Given Ferrous Sulfate (Feosol -) 325 mg PO DAILY [facility] Last Admin: 11/21/16 10:21 Dose: 325 mg Heparin Sodium (Porcine) (Heparin -) 5,000 unit SQ BID [facility] Last Admin: 11/21/16 10:21 Dose: 5,000 unit Ceftriaxone Sodium 1 gm/ (Dextrose) 50 mls @ 100 mls/hr IVPB DAILY [facility] Last Admin: 11/21/16 10:21 Dose: 100 mls/hr Insulin Detemir (Levemir Vial) 18 units SQ HS [facility] Last Admin: 11/20/16 22:04 Dose: 18 units Lactulose (Cephulac (Oral Use)) 10 gm PO DAILY [facility] Last Admin: 11/21/16 10:31 Dose: 10 gm Ondansetron HCl (Zofran Injection) 4 mg IVPB Q6H PRN PRN Reason: NAUSEA AND/OR VOMITING Prednisone (Deltasone -) 10 mg PO DAILY [facility] Last Admin: 11/21/16 10:21 Dose: 10 mg Sevelamer Carbonate (Renvela -) 800 mg PO TIDCM [facility] Last Admin: 11/21/16 12:00 Dose: Not Given - Objective Vital Signs: Vital Signs Temperature 98.4 F 11/21/16 10:00 Pulse Rate 99 H 11/21/16 10:00 Respiratory Rate 20 11/21/16 10:00 Blood Pressure 159/92 11/21/16 10:00 O2 Sat by Pulse Oximetry (%) 100 11/21/16 09:00 Constitutional: Yes: No Distress, Calm, Obese Eyes: Yes: Conjunctiva Clear HENT: Yes: Atraumatic, Normocephalic Cardiovascular: Yes: Tachycardia, S1, S2. No: Bradycardia, Pulse Irregular, Bruit, JVD, Gallop, Murmur, Rub, S3, S4, Varicosities, Other Respiratory: Yes: Regular, Diminished. No: Rales, Rhonchi, SOB, Wheezes Gastrointestinal: Yes: Normal Bowel Sounds, Soft. No: Distention, Tenderness Edema: No Peripheral Pulses WNL: Yes Peripheral Pulses: Left Doralis Pedis: 2+, Right Dorsalis Pedis: 2+ Neurological: Yes: Alert Psychiatric: Yes: Alert Labs: CBC, BMP 11/21/16 10:20 11/21/16 10:20 INR, PTT INR 1.04 (0.82-1.09) 11/15/16 13:11 - ....Imaging Chest X-ray: Report Reviewed, Image Reviewed EKG: Report Reviewed, Image Reviewed Other: Report Reviewed, Image Reviewed (tele-nsr, sinus tach, no arrhythmias) Assessment/Plan elevated troponin fever, tachycardia, presumed sepsis nonfunctioning HD access Persistent sinus tach Recc Troponin slightly elevated with normal CK and trop did not trend up-unlikely Type I GA, more likely secondary to sepsis and anemia in setting of ESRD Echo showed hyperdynamic LV/RV systolic function, mild to mod AR, mild MR, unclear if pericardial effusion will repeat limited echo views today to confirm if there is a pericardial effusion or not anemia improved with PRBCs receiving abx for sepsis Still with persistent sinus tach, may be intravascular depleted based on hyperdynamic LV/RV on echo Pulm evaluation appreciated, low susp for PE thus CT was cancelled and doppler ordered if echo shows no effusion and doppler negative then presume tachycardia is due to sepsis and intravascular depletion and thus can dc tele will consider ischemic evaluation once medically improves, unlikely needs to be done as inpatient
--- NOTE | 2016-11-21 15:40 | PN ---
Progress Note (short form) - Note Progress Note: Vascular Surgery Pt for permacath placement in am. NPO past midnight Cleared by GERSON Villa DO
--- NOTE | 2016-11-21 17:08 | PN ---
Progress Note, Physician History of Present Illness: stable no new issues - Current Medication List Current Medications: Active Medications Acetaminophen (Tylenol Suppository -) 650 mg [place] Q6H PRN PRN Reason: FEVER OR PAIN Last Admin: 11/19/16 02:12 Dose: 650 mg Albuterol/Ipratropium (Duoneb -) 1 amp NEB Q6H PRN Cinacalcet (Sensipar -) 30 mg PO DAILY [facility] Last Admin: 11/21/16 10:26 Dose: 30 mg Clonidine (Catapres -) 0.3 mg PO TID [facility] Last Admin: 11/21/16 14:15 Dose: 0.3 mg Docusate Sodium (Colace -) 300 mg PO HS [facility] Last Admin: 11/20/16 22:04 Dose: Not Given Ferrous Sulfate (Feosol -) 325 mg PO DAILY [facility] Last Admin: 11/21/16 10:21 Dose: 325 mg Heparin Sodium (Porcine) (Heparin -) 5,000 unit SQ BID [facility] Last Admin: 11/21/16 10:21 Dose: 5,000 unit Ceftriaxone Sodium 1 gm/ (Dextrose) 50 mls @ 100 mls/hr IVPB DAILY [facility] Last Admin: 11/21/16 10:21 Dose: 100 mls/hr Insulin Detemir (Levemir Vial) 18 units SQ HS [facility] Last Admin: 11/20/16 22:04 Dose: 18 units Lactulose (Cephulac (Oral Use)) 10 gm PO DAILY [facility] Last Admin: 11/21/16 10:31 Dose: 10 gm Ondansetron HCl (Zofran Injection) 4 mg IVPB Q6H PRN PRN Reason: NAUSEA AND/OR VOMITING Prednisone (Deltasone -) 10 mg PO DAILY [facility] Last Admin: 11/21/16 10:21 Dose: 10 mg Sevelamer Carbonate (Renvela Powder Packet -) 800 gm PO TIDCM [facility] Valproate Sodium (Depakene -) 500 mg PO TID [facility] - Objective Vital Signs: Vital Signs Temperature 99.6 F 11/21/16 14:40 Pulse Rate 86 11/21/16 14:40 Respiratory Rate 18 11/21/16 14:40 Blood Pressure 155/56 11/21/16 14:40 O2 Sat by Pulse Oximetry (%) 100 11/21/16 09:00 Constitutional: Yes: No Distress, Calm Cardiovascular: Yes: Regular Rate and Rhythm Respiratory: Yes: Regular, CTA Bilaterally Gastrointestinal: Yes: Normal Bowel Sounds, Soft Musculoskeletal: Yes: Other Extremities: Yes: Other Neurological: Yes: Alert Psychiatric: Yes: Alert Labs: CBC, BMP 11/21/16 10:20 11/21/16 10:20 INR, PTT INR 1.04 (0.82-1.09) 11/15/16 13:11 Assessment/Plan Problem List - Problems (1) Dialysis AV fistula malfunction Code(s): T82.590A - [facility] COMPL OF SURGICALLY CREATED ARTERIOVENOUS FISTULA, INIT Qualifiers: Encounter type: initial encounter Qualified Code(s): T82.590A - Other mechanical complication of surgically created arteriovenous fistula, initial encounter (2) ESRD (end stage renal disease) Code(s): N18.6 - END STAGE RENAL DISEASE (3) Lethargic Code(s): R53.83 - OTHER FATIGUE (4) Leukocytosis, unspecified Code(s): D72.829 - ELEVATED WHITE BLOOD CELL COUNT, UNSPECIFIED plan continue current abx wbc near normal patient can have permacath rest as per primary
[2016-11-21] MEDS: SEVELAMER CARBONATE 0.8 GM POWDER PACKET PO SCH (18:20)
[2016-11-21] MEDS: VALPROATE SODIUM 250 MG/5 ML UNIT DOSE CUP PO SCH ×2 (18:25→22:33)
--- NOTE | 2016-11-21 22:31 | PN ---
Progress Note, Physician History of Present Illness: No new complaints - Current Medication List Current Medications: Active Medications Acetaminophen (Tylenol Suppository -) 650 mg [place] Q6H PRN PRN Reason: FEVER OR PAIN Last Admin: 11/19/16 02:12 Dose: 650 mg Albuterol/Ipratropium (Duoneb -) 1 amp NEB Q6H PRN Cinacalcet (Sensipar -) 30 mg PO DAILY [facility] Last Admin: 11/21/16 10:26 Dose: 30 mg Clonidine (Catapres -) 0.3 mg PO TID [facility] Last Admin: 11/21/16 14:15 Dose: 0.3 mg Docusate Sodium (Colace -) 300 mg PO HS [facility] Last Admin: 11/20/16 22:04 Dose: Not Given Ferrous Sulfate (Feosol -) 325 mg PO DAILY [facility] Last Admin: 11/21/16 10:21 Dose: 325 mg Heparin Sodium (Porcine) (Heparin -) 5,000 unit SQ BID [facility] Last Admin: 11/21/16 10:21 Dose: 5,000 unit Ceftriaxone Sodium 1 gm/ (Dextrose) 50 mls @ 100 mls/hr IVPB DAILY [facility] Last Admin: 11/21/16 10:21 Dose: 100 mls/hr Insulin Detemir (Levemir Vial) 18 units SQ HS [facility] Last Admin: 11/20/16 22:04 Dose: 18 units Lactulose (Cephulac (Oral Use)) 10 gm PO DAILY [facility] Last Admin: 11/21/16 10:31 Dose: 10 gm Ondansetron HCl (Zofran Injection) 4 mg IVPB Q6H PRN PRN Reason: NAUSEA AND/OR VOMITING Prednisone (Deltasone -) 10 mg PO DAILY [facility] Last Admin: 11/21/16 10:21 Dose: 10 mg Sevelamer Carbonate (Renvela Powder Packet -) 800 gm PO TIDCM [facility] Last Admin: 11/21/16 18:20 Dose: Not Given Valproate Sodium (Depakene -) 500 mg PO TID [facility] Last Admin: 11/21/16 18:25 Dose: 500 mg - Objective Vital Signs: Vital Signs Temperature 98.7 F 11/21/16 21:31 Pulse Rate 98 H 11/21/16 21:31 Respiratory Rate 18 11/21/16 21:31 Blood Pressure 139/78 11/21/16 21:31 O2 Sat by Pulse Oximetry (%) 100 11/21/16 09:00 Constitutional: Yes: No Distress Neck: Yes: WNL, Supple Cardiovascular: Yes: Pulse Irregular Respiratory: Yes: Diminished Gastrointestinal: Yes: WNL, Normal Bowel Sounds, Soft Extremities: Yes: WNL Labs: CBC, BMP 11/21/16 10:20 INR, PTT INR 1.04 (0.82-1.09) 11/15/16 13:11 Problem List - Problems (1) Sepsis Assessment/Plan: Urine culture (+) strept viridans however repeat culture remains negative BC remain negative IV vanco w/ dialysis Cont IV zosyn WBC decreasing Code(s): A41.9 - SEPSIS, UNSPECIFIED ORGANISM (2) Dialysis AV fistula malfunction Assessment/Plan: S/P thrombectomy and stent placement of lt av fistula Pt for perma cath placement in am Code(s): T82.590A - [facility] COMPL OF SURGICALLY CREATED ARTERIOVENOUS FISTULA, INIT Qualifiers: Encounter type: initial encounter Qualified Code(s): T82.590A - Other mechanical complication of surgically created arteriovenous fistula, initial encounter (3) Elevated troponin Assessment/Plan: Due to demand ischemia and not [place] Code(s): R74.8 - ABNORMAL LEVELS OF OTHER SERUM ENZYMES (4) ESRD (end stage renal disease) Assessment/Plan: Dialysis as per renal Code(s): N18.6 - END STAGE RENAL DISEASE (5) Diabetes Code(s): E11.9 - TYPE 2 DIABETES MELLITUS WITHOUT COMPLICATIONS (6) Anemia Code(s): D64.9 - ANEMIA, UNSPECIFIED (7) HTN (hypertension) Code(s): I10 - ESSENTIAL (PRIMARY) HYPERTENSION (8) Bipolar 1 disorder Code(s): F31.9 - BIPOLAR DISORDER, UNSPECIFIED (9) Lethargic Code(s): R53.83 - OTHER FATIGUE
[2016-11-21] MEDS: DOCUSATE SODIUM 100 MG CAPSULE (FP) PO SCH (22:32)
[2016-11-21] MEDS: INSULIN DETEMIR 100 UNITS/ML MDV SQ SCH (22:33)
[2016-11-21] MEDS ORDERED: INSULIN (NOVOLOG) ASPART 100 UNITS/ML 10ML VIAL SQ ONE (23:45)
[2016-11-22] MEDS: VALPROATE SODIUM 250 MG/5 ML UNIT DOSE CUP PO SCH ×3 (06:32→21:33)
[2016-11-22] MEDS: cloNIDine HCL 0.1 MG TABLET PO SCH ×3 (06:33→21:33)
[2016-11-22] MEDS ORDERED: LIDOCAINE HCL 1%, 10 MG/ML (20ML VIAL) ONE ×3 (07:16→09:52)
[2016-11-22] MEDS ORDERED: HEPARIN NA (PORCINE) 5,000 UNITS/ML 1ML VIAL ONE (07:16)
[2016-11-22] MEDS ORDERED: ceFAZolin SODIUM 1 GM VIAL IVPB ONE (09:29)
[2016-11-22] MEDS ORDERED: LIDOCAINE HCL 1%, 10 MG/ML (50 mL VIAL) IJ ONE ×2 (09:30)
--- NOTE | 2016-11-22 10:28 | OP ---
Operative Note - Note: Operative Date: 11/22/16 Pre-Operative Diagnosis: ESRD Operation: Insertion of permacath Post-Operative Diagnosis: Same as Pre-op Surgeon: Yimi Villa Anesthesia: Fractional Estimated Blood Loss (mls): 10 Operative Report Dictated: Yes
[2016-11-22] MEDS ORDERED: ALBUTEROL SO4 2.5/IPRATROPIUM 0.5 INH SOL 3 ML VIAL.NEB. NEB PRN (10:42)
[2016-11-22] MEDS ORDERED: ONDANSETRON 4 MG/2 ML VIAL IVPB PRN (10:42)
[2016-11-22] MEDS ORDERED: EPOETIN ALFA 2,000 UNITS/1 ML VIAL IVPUSH ONE (10:42)
[2016-11-22] MEDS: SEVELAMER CARBONATE 0.8 GM POWDER PACKET PO SCH ×2 (10:58→16:47)
[2016-11-22] MEDS: LACTULOSE 20 GM/30 ML UDC (FOR ORAL USE ONLY) PO SCH (10:58)
[2016-11-22] MEDS: FERROUS SO4 325 MG TABLET (FP) PO SCH (10:59)
[2016-11-22] MEDS: HEPARIN NA (PORCINE) 5,000 UNITS/ML 1ML VIAL SQ SCH ×2 (10:59→21:34)
[2016-11-22] MEDS: CEFTRIAXONE 1 GM in DEXTROSE 5%-WATER - 50 ML IVPB SCH (10:59)
[2016-11-22] MEDS: CINACALCET HCL 30 MG TAB (FP) PO SCH (10:59)
[2016-11-22] MEDS: predniSONE 10 MG TABLET (UD) PO SCH (10:59)
[2016-11-22] MEDS ORDERED: EPOETIN ALFA 10,000 UNIT/1 ML VIAL IVPUSH ONE ×2 (12:00→14:15)
[2016-11-22 12:39] LABS: MCH 29.7 pg (25.7-33.7); MCHC 31.6 g/dl (32.0-36.0); MEAN CELL VOLUME 93.8 fl (80-96); MEAN PLT VOLUME 7.7 fl (7.5-11.1); PLATELET COUNT 253 K/MM3 (134-434); RDW 18.3 % (11.6-15.6); WHITE BLOOD COUNT 9.2 K/mm3 (4.0-10.0)
[2016-11-22 13:08] LABS: ANION GAP 13 (8-16); CALCIUM 8.7 mg/dL (8.5-10.1); CO2 26 mmol/L (21-32)
[2016-11-22 13:17] LABS: GLUCOSE,RANDOM 317 mg/dL (74-106)
[2016-11-22 13:18] LABS: CREATININE 10.1 mg/dL (0.55-1.02)
--- NOTE | 2016-11-22 14:11 | PN ---
Progress Note, Physician History of Present Illness: Pt seen and examined at bedside. She is currently getting HD. She had the permacath placed today. - Current Medication List Current Medications: Active Medications Acetaminophen (Tylenol Suppository -) 650 mg [place] Q6H PRN PRN Reason: FEVER OR PAIN Albuterol/Ipratropium (Duoneb -) 1 amp NEB Q6H PRN Cinacalcet (Sensipar -) 30 mg PO DAILY [facility] Clonidine (Catapres -) 0.3 mg PO TID [facility] Docusate Sodium (Colace -) 300 mg PO HS [facility] Ferrous Sulfate (Feosol -) 325 mg PO DAILY [facility] Heparin Sodium (Porcine) (Heparin -) 5,000 unit SQ BID [facility] Ceftriaxone Sodium (Rocephin 1gm Ivpb (Pre-Docked)) 50 mls @ 100 mls/hr IVPB DAILY [facility] Insulin Detemir (Levemir Vial) 18 units SQ HS [facility] Lactulose (Cephulac (Oral Use)) 10 gm PO DAILY [facility] Ondansetron HCl (Zofran Injection) 4 mg IVPB Q6H PRN PRN Reason: NAUSEA AND/OR VOMITING Prednisone (Deltasone -) 10 mg PO DAILY [facility] Sevelamer Carbonate (Renvela Powder Packet -) 0.8 gm PO TIDCM [facility] Valproate Sodium (Depakene -) 500 mg PO TID [facility] - Objective Vital Signs: Vital Signs Temperature 98.0 F 11/22/16 11:25 Pulse Rate 120 H 11/22/16 13:40 Respiratory Rate 20 11/22/16 13:40 Blood Pressure 112/47 11/22/16 13:40 O2 Sat by Pulse Oximetry (%) 100 11/22/16 11:10 Constitutional: Yes: Calm Eyes: Yes: Conjunctiva Clear HENT: Yes: Atraumatic Neck: Yes: Supple Cardiovascular: Yes: S1, S2 Respiratory: Yes: CTA Bilaterally, On Nasal O2 Gastrointestinal: Yes: Soft Genitourinary: Yes: WNL Musculoskeletal: Yes: WNL Edema: No Neurological: Yes: Oriented Psychiatric: Yes: Oriented Labs: CBC, BMP 11/22/16 11:45 11/22/16 11:45 INR, PTT INR 1.04 (0.82-1.09) 11/15/16 13:11 Problem List - Problems (1) Dialysis AV fistula malfunction Code(s): T82.590A - [facility] COMPL OF SURGICALLY CREATED ARTERIOVENOUS FISTULA, INIT Qualifiers: Encounter type: initial encounter Qualified Code(s): T82.590A - Other mechanical complication of surgically created arteriovenous fistula, initial encounter (2) ESRD (end stage renal disease) Code(s): N18.6 - END STAGE RENAL DISEASE Assessment/Plan Current Medications Generic Name Dose Route Start Last Admin Trade Name Freq PRN Reason Stop Dose Admin Acetaminophen 650 mg 11/22/16 10:42 Tylenol Suppository - [place] Q6H PRN FEVER OR PAIN Albuterol/Ipratropium 1 amp 11/22/16 10:42 Duoneb - NEB Q6H PRN Cinacalcet 30 mg 11/23/16 10:00 Sensipar - PO DAILY [facility] Clonidine 0.3 mg 11/22/16 14:00 Catapres - PO TID [facility] Docusate Sodium 300 mg 11/22/16 22:00 Colace - PO HS [facility] Ferrous Sulfate 325 mg 11/23/16 10:00 Feosol - PO DAILY [facility] Heparin Sodium (Porcine) 5,000 unit 11/22/16 22:00 Heparin - SQ BID [facility] Ceftriaxone Sodium 50 mls @ 100 mls/hr 11/23/16 10:00 Rocephin 1gm Ivpb (Pre-Docked) IVPB DAILY [facility] Insulin Detemir 18 units 11/22/16 22:00 Levemir Vial SQ HS [facility] Lactulose 10 gm 11/23/16 10:00 Cephulac (Oral Use) PO DAILY [facility] Ondansetron HCl 4 mg 11/22/16 10:42 Zofran Injection IVPB Q6H PRN NAUSEA AND/OR VOMITING Prednisone 10 mg 11/23/16 10:00 Deltasone - PO DAILY [facility] Sevelamer Carbonate 0.8 gm 11/22/16 17:30 Renvela Powder Packet - PO TIDCM [facility] Valproate Sodium 500 mg 11/22/16 14:00 Depakene - PO TID [facility] Impression 1. ESRD 2. AV fistula malfunction 3. DM 4. HTN 5. COPD 6. Bipolar 7. anemia 8. hyperkalemia 9. tachycardia Plan - HD today - pt had permacath placed - will need fistula, can be done as outpt - discussed with vascular surgery - cultures negative so far - epogen for anemia - monitor hg - will follow Dr Morales
--- NOTE | 2016-11-22 14:34 | PN ---
Progress Note, Physician History of Present Illness: patient with insertion of permacath stable - Current Medication List Current Medications: Active Medications Acetaminophen (Tylenol Suppository -) 650 mg [place] Q6H PRN PRN Reason: FEVER OR PAIN Albuterol/Ipratropium (Duoneb -) 1 amp NEB Q6H PRN Cinacalcet (Sensipar -) 30 mg PO DAILY [facility] Clonidine (Catapres -) 0.3 mg PO TID [facility] Docusate Sodium (Colace -) 300 mg PO HS [facility] Ferrous Sulfate (Feosol -) 325 mg PO DAILY [facility] Heparin Sodium (Porcine) (Heparin -) 5,000 unit SQ BID [facility] Ceftriaxone Sodium (Rocephin 1gm Ivpb (Pre-Docked)) 50 mls @ 100 mls/hr IVPB DAILY [facility] Insulin Detemir (Levemir Vial) 18 units SQ HS [facility] Lactulose (Cephulac (Oral Use)) 10 gm PO DAILY [facility] Ondansetron HCl (Zofran Injection) 4 mg IVPB Q6H PRN PRN Reason: NAUSEA AND/OR VOMITING Prednisone (Deltasone -) 10 mg PO DAILY [facility] Sevelamer Carbonate (Renvela Powder Packet -) 0.8 gm PO TIDCM [facility] Valproate Sodium (Depakene -) 500 mg PO TID [facility] - Objective Vital Signs: Vital Signs Temperature 98.0 F 11/22/16 11:25 Pulse Rate 100 H 11/22/16 14:11 Respiratory Rate 18 11/22/16 14:11 Blood Pressure 101/47 11/22/16 14:11 O2 Sat by Pulse Oximetry (%) 100 11/22/16 11:10 Constitutional: Yes: No Distress, Calm Neck: Yes: Supple, Trachea Midline Cardiovascular: Yes: Regular Rate and Rhythm Respiratory: Yes: Regular, CTA Bilaterally Gastrointestinal: Yes: Normal Bowel Sounds, Soft Labs: CBC, BMP 11/22/16 11:45 11/22/16 11:45 INR, PTT INR 1.04 (0.82-1.09) 11/15/16 13:11 Assessment/Plan Problem List - Problems (1) Dialysis AV fistula malfunction Code(s): T82.590A - [facility] COMPL OF SURGICALLY CREATED ARTERIOVENOUS FISTULA, INIT Qualifiers: Encounter type: initial encounter Qualified Code(s): T82.590A - Other mechanical complication of surgically created arteriovenous fistula, initial encounter (2) ESRD (end stage renal disease) Code(s): N18.6 - END STAGE RENAL DISEASE (3) Lethargic Code(s): R53.83 - OTHER FATIGUE (4) Leukocytosis, unspecified Code(s): D72.829 - ELEVATED WHITE BLOOD CELL COUNT, UNSPECIFIED plan continue current abx patient getting dialysis
--- NOTE | 2016-11-22 19:55 | PN ---
Progress Note, Physician - Current Medication List Current Medications: Active Medications Acetaminophen (Tylenol Suppository -) 650 mg [place] Q6H PRN PRN Reason: FEVER OR PAIN Albuterol/Ipratropium (Duoneb -) 1 amp NEB Q6H PRN Cinacalcet (Sensipar -) 30 mg PO DAILY [facility] Clonidine (Catapres -) 0.3 mg PO TID [facility] Last Admin: 11/22/16 14:00 Dose: Not Given Docusate Sodium (Colace -) 300 mg PO HS [facility] Ferrous Sulfate (Feosol -) 325 mg PO DAILY [facility] Heparin Sodium (Porcine) (Heparin -) 5,000 unit SQ BID [facility] Ceftriaxone Sodium (Rocephin 1gm Ivpb (Pre-Docked)) 50 mls @ 100 mls/hr IVPB DAILY [facility] Insulin Detemir (Levemir Vial) 18 units SQ HS [facility] Lactulose (Cephulac (Oral Use)) 10 gm PO DAILY [facility] Ondansetron HCl (Zofran Injection) 4 mg IVPB Q6H PRN PRN Reason: NAUSEA AND/OR VOMITING Prednisone (Deltasone -) 10 mg PO DAILY [facility] Sevelamer Carbonate (Renvela Powder Packet -) 0.8 gm PO TIDCM [facility] Last Admin: 11/22/16 16:47 Dose: Not Given Valproate Sodium (Depakene -) 500 mg PO TID [facility] Last Admin: 11/22/16 14:00 Dose: Not Given - Objective Vital Signs: Vital Signs Temperature 98.0 F 11/22/16 11:25 Pulse Rate 102 H 11/22/16 15:38 Respiratory Rate 18 11/22/16 15:38 Blood Pressure 112/49 11/22/16 15:38 O2 Sat by Pulse Oximetry (%) 100 11/22/16 11:10 Labs: CBC, BMP 11/22/16 11:45 11/22/16 11:45 INR, PTT INR 1.04 (0.82-1.09) 11/15/16 13:11 Problem List - Problems (1) Sepsis Code(s): A41.9 - SEPSIS, UNSPECIFIED ORGANISM (2) Dialysis AV fistula malfunction Code(s): T82.590A - [facility] COMPL OF SURGICALLY CREATED ARTERIOVENOUS FISTULA, INIT Qualifiers: Encounter type: initial encounter Qualified Code(s): T82.590A - Other mechanical complication of surgically created arteriovenous fistula, initial encounter (3) Elevated troponin Code(s): R74.8 - ABNORMAL LEVELS OF OTHER SERUM ENZYMES (4) ESRD (end stage renal disease) Code(s): N18.6 - END STAGE RENAL DISEASE (5) Diabetes Code(s): E11.9 - TYPE 2 DIABETES MELLITUS WITHOUT COMPLICATIONS (6) Anemia Code(s): D64.9 - ANEMIA, UNSPECIFIED (7) HTN (hypertension) Code(s): I10 - ESSENTIAL (PRIMARY) HYPERTENSION (8) Bipolar 1 disorder Code(s): F31.9 - BIPOLAR DISORDER, UNSPECIFIED (9) Lethargic Code(s): R53.83 - OTHER FATIGUE
[2016-11-22] MEDS ORDERED: PT OWN MED DRAWER 7, Y5N ONE (21:08)
[2016-11-22] MEDS: DOCUSATE SODIUM 100 MG CAPSULE (FP) PO SCH (21:33)
[2016-11-22] MEDS: INSULIN DETEMIR 100 UNITS/ML MDV SQ SCH (21:38)
[2016-11-22] MEDS ORDERED: HALOPERIDOL LACTATE 5 MG/ML ONE (23:23)
[2016-11-22] MEDS ORDERED: HALOPERIDOL LACTATE 5 MG/ML IM ONE (23:30)
[2016-11-23] MEDS ORDERED: PT OWN MED DRAWER 7, Y5N ONE (06:02)
[2016-11-23] MEDS: VALPROATE SODIUM 250 MG/5 ML UNIT DOSE CUP PO SCH ×3 (06:03→22:09)
[2016-11-23] MEDS: cloNIDine HCL 0.1 MG TABLET PO SCH ×3 (06:04→22:08)
[2016-11-23 07:09] LABS: BASOPHIL 0.1 % (0-2.0); EOSINOPHIL 1.4 % (0-4.5); MCH 29.2 pg (25.7-33.7); MEAN CELL VOLUME 94.2 fl (80-96); MEAN PLT VOLUME 7.7 fl (7.5-11.1); NEUTROPHILS 79.6 % (42.8-82.8); PLATELET COUNT 215 K/MM3 (134-434); RDW 18.4 % (11.6-15.6); WHITE BLOOD COUNT 8.8 K/mm3 (4.0-10.0)
[2016-11-23 07:42] LABS: ANION GAP 13 (8-16); CALCIUM 8.2 mg/dL (8.5-10.1); CO2 28 mmol/L (21-32); CREATININE 5.9 mg/dL (0.55-1.02)
[2016-11-23] MEDS: SEVELAMER CARBONATE 0.8 GM POWDER PACKET PO SCH ×3 (08:18→17:52)
[2016-11-23 09:02] LABS: GLUCOSE,RANDOM 328 mg/dL (74-106)
--- NOTE | 2016-11-23 10:38 | PN ---
Progress Note, Physician History of Present Illness: seen and examined today in [facility]. awake and alert, seems disoriented, speech not clear. no overnight events. - Current Medication List Current Medications: Active Medications Acetaminophen (Tylenol Suppository -) 650 mg [place] Q6H PRN PRN Reason: FEVER OR PAIN Albuterol/Ipratropium (Duoneb -) 1 amp NEB Q6H PRN Cinacalcet (Sensipar -) 30 mg PO DAILY [facility] Clonidine (Catapres -) 0.3 mg PO TID [facility] Last Admin: 11/23/16 06:04 Dose: 0.3 mg Docusate Sodium (Colace -) 300 mg PO HS [facility] Last Admin: 11/22/16 21:33 Dose: 300 mg Ferrous Sulfate (Feosol -) 325 mg PO DAILY [facility] Heparin Sodium (Porcine) (Heparin -) 5,000 unit SQ BID [facility] Last Admin: 11/22/16 21:34 Dose: 5,000 unit Ceftriaxone Sodium (Rocephin 1gm Ivpb (Pre-Docked)) 50 mls @ 100 mls/hr IVPB DAILY [facility] Insulin Detemir (Levemir Vial) 18 units SQ HS [facility] Last Admin: 11/22/16 21:38 Dose: 18 unit Lactulose (Cephulac (Oral Use)) 10 gm PO DAILY [facility] Ondansetron HCl (Zofran Injection) 4 mg IVPB Q6H PRN PRN Reason: NAUSEA AND/OR VOMITING Prednisone (Deltasone -) 10 mg PO DAILY [facility] Sevelamer Carbonate (Renvela Powder Packet -) 0.8 gm PO TIDCM [facility] Last Admin: 11/22/16 16:47 Dose: Not Given Valproate Sodium (Depakene -) 500 mg PO TID [facility] Last Admin: 11/23/16 06:03 Dose: 500 mg - Objective Vital Signs: Vital Signs Temperature 97.9 F 11/23/16 02:00 Pulse Rate 105 H 11/23/16 06:00 Respiratory Rate 18 11/23/16 02:00 Blood Pressure 130/56 11/23/16 06:00 O2 Sat by Pulse Oximetry (%) 98 11/23/16 06:00 Constitutional: Yes: No Distress, Calm, Obese Eyes: Yes: Conjunctiva Clear, EOM Intact HENT: Yes: Atraumatic, Normocephalic Neck: Yes: Supple, Trachea Midline Cardiovascular: Yes: Regular Rate and Rhythm, S1, S2. No: Bradycardia, Tachycardia, Pulse Irregular, Bruit, JVD, Gallop, Murmur, Rub, S3, S4 Respiratory: Yes: Regular, Diminished. No: Rales, Rhonchi, Wheezes Gastrointestinal: Yes: Normal Bowel Sounds, Soft. No: Distention, Tenderness Edema: No Peripheral Pulses WNL: Yes Peripheral Pulses: Left Doralis Pedis: 2+, Right Dorsalis Pedis: 2+ Neurological: Yes: Alert. No: Oriented Psychiatric: Yes: Alert. No: Oriented Labs: CBC, BMP 11/23/16 06:30 11/23/16 06:30 INR, PTT INR 1.04 (0.82-1.09) 11/15/16 13:11 - ....Imaging Chest X-ray: Report Reviewed, Image Reviewed EKG: Report Reviewed, Image Reviewed Other: Report Reviewed, Image Reviewed (tele-sinus tach, no arrhythmias) Assessment/Plan elevated troponin fever, tachycardia, presumed sepsis nonfunctioning HD access Persistent sinus tach Recc Troponin slightly elevated with normal CK and trop did not trend up-unlikely Type I [place], more likely secondary to sepsis and anemia in setting of ESRD Echo showed hyperdynamic LV/RV systolic function, mild to mod AR, mild MR, unclear if pericardial effusion repeat limited echo was done but no comment made on possible pericardial effusion, need to review images anemia improved with PRBCs sinus tach improving, no arrhythmias on tele since admission, can dc tele at this point will consider ischemic evaluation once medically improves, would defer to outpatient setting
[2016-11-23] MEDS: predniSONE 10 MG TABLET (UD) PO SCH (12:17)
[2016-11-23] MEDS: CINACALCET HCL 30 MG TAB (FP) PO SCH (12:17)
[2016-11-23] MEDS: HEPARIN NA (PORCINE) 5,000 UNITS/ML 1ML VIAL SQ SCH ×2 (12:17→22:10)
[2016-11-23] MEDS: LACTULOSE 20 GM/30 ML UDC (FOR ORAL USE ONLY) PO SCH (12:17)
[2016-11-23] MEDS: FERROUS SO4 325 MG TABLET (FP) PO SCH (12:17)
[2016-11-23] MEDS: CEFTRIAXONE 50 ML IVPB SCH (12:18)
--- NOTE | 2016-11-23 15:04 | PN ---
Progress Note, Physician History of Present Illness: stable no isues wbc normalized - Current Medication List Current Medications: Active Medications Acetaminophen (Tylenol Suppository -) 650 mg [place] Q6H PRN PRN Reason: FEVER OR PAIN Albuterol/Ipratropium (Duoneb -) 1 amp NEB Q6H PRN Cinacalcet (Sensipar -) 30 mg PO DAILY [facility] Last Admin: 11/23/16 12:17 Dose: 30 mg Clonidine (Catapres -) 0.3 mg PO TID [facility] Last Admin: 11/23/16 14:16 Dose: 0.3 mg Docusate Sodium (Colace -) 300 mg PO HS [facility] Last Admin: 11/22/16 21:33 Dose: 300 mg Ferrous Sulfate (Feosol -) 325 mg PO DAILY [facility] Last Admin: 11/23/16 12:17 Dose: 325 mg Heparin Sodium (Porcine) (Heparin -) 5,000 unit SQ BID [facility] Last Admin: 11/23/16 12:17 Dose: 5,000 unit Ceftriaxone Sodium (Rocephin 1gm Ivpb (Pre-Docked)) 50 mls @ 100 mls/hr IVPB DAILY [facility] Last Admin: 11/23/16 12:18 Dose: 100 mls/hr Insulin Detemir (Levemir Vial) 18 units SQ HS [facility] Last Admin: 11/22/16 21:38 Dose: 18 unit Lactulose (Cephulac (Oral Use)) 10 gm PO DAILY [facility] Last Admin: 11/23/16 12:17 Dose: 10 gm Ondansetron HCl (Zofran Injection) 4 mg IVPB Q6H PRN PRN Reason: NAUSEA AND/OR VOMITING Prednisone (Deltasone -) 10 mg PO DAILY [facility] Last Admin: 11/23/16 12:17 Dose: 10 mg Sevelamer Carbonate (Renvela Powder Packet -) 0.8 gm PO TIDCM [facility] Last Admin: 11/23/16 12:18 Dose: 0.8 gm Valproate Sodium (Depakene -) 500 mg PO TID [facility] Last Admin: 11/23/16 14:17 Dose: 500 mg - Objective Vital Signs: Vital Signs Temperature 98.9 F 11/23/16 13:41 Pulse Rate 93 H 11/23/16 10:00 Respiratory Rate 20 11/23/16 13:41 Blood Pressure 109/54 11/23/16 13:41 O2 Sat by Pulse Oximetry (%) 98 11/23/16 09:00 Constitutional: Yes: No Distress, Calm Cardiovascular: Yes: S1, S2 Respiratory: Yes: Regular, CTA Bilaterally Gastrointestinal: Yes: Normal Bowel Sounds, Soft Musculoskeletal: Yes: Other Extremities: Yes: Other Neurological: Yes: Alert Psychiatric: Yes: Alert Labs: CBC, BMP 11/23/16 06:30 11/23/16 06:30 INR, PTT INR 1.04 (0.82-1.09) 11/15/16 13:11 Assessment/Plan Problem List - Problems (1) Dialysis AV fistula malfunction Code(s): T82.590A - [facility] COMPL OF SURGICALLY CREATED ARTERIOVENOUS FISTULA, INIT Qualifiers: Encounter type: initial encounter Qualified Code(s): T82.590A - Other mechanical complication of surgically created arteriovenous fistula, initial encounter (2) ESRD (end stage renal disease) Code(s): N18.6 - END STAGE RENAL DISEASE (3) Lethargic Code(s): R53.83 - OTHER FATIGUE (4) Leukocytosis, unspecified Code(s): D72.829 - ELEVATED WHITE BLOOD CELL COUNT, UNSPECIFIED plan continue current abx will deescalate abx by tomorrow or saturday depending on how patient does
--- NOTE | 2016-11-23 16:09 | PN ---
Progress Note, Physician History of Present Illness: Pt seen and examined at bedside. She is awake and alert. She denies shortness of breath. - Current Medication List Current Medications: Active Medications Acetaminophen (Tylenol Suppository -) 650 mg [place] Q6H PRN PRN Reason: FEVER OR PAIN Albuterol/Ipratropium (Duoneb -) 1 amp NEB Q6H PRN Cinacalcet (Sensipar -) 30 mg PO DAILY [facility] Last Admin: 11/23/16 12:17 Dose: 30 mg Clonidine (Catapres -) 0.3 mg PO TID [facility] Last Admin: 11/23/16 14:16 Dose: 0.3 mg Docusate Sodium (Colace -) 300 mg PO HS [facility] Last Admin: 11/22/16 21:33 Dose: 300 mg Ferrous Sulfate (Feosol -) 325 mg PO DAILY [facility] Last Admin: 11/23/16 12:17 Dose: 325 mg Heparin Sodium (Porcine) (Heparin -) 5,000 unit SQ BID [facility] Last Admin: 11/23/16 12:17 Dose: 5,000 unit Ceftriaxone Sodium (Rocephin 1gm Ivpb (Pre-Docked)) 50 mls @ 100 mls/hr IVPB DAILY [facility] Last Admin: 11/23/16 12:18 Dose: 100 mls/hr Insulin Detemir (Levemir Vial) 18 units SQ HS [facility] Last Admin: 11/22/16 21:38 Dose: 18 unit Lactulose (Cephulac (Oral Use)) 10 gm PO DAILY [facility] Last Admin: 11/23/16 12:17 Dose: 10 gm Ondansetron HCl (Zofran Injection) 4 mg IVPB Q6H PRN PRN Reason: NAUSEA AND/OR VOMITING Prednisone (Deltasone -) 10 mg PO DAILY [facility] Last Admin: 11/23/16 12:17 Dose: 10 mg Sevelamer Carbonate (Renvela Powder Packet -) 0.8 gm PO TIDCM [facility] Last Admin: 11/23/16 12:18 Dose: 0.8 gm Valproate Sodium (Depakene -) 500 mg PO TID [facility] Last Admin: 11/23/16 14:17 Dose: 500 mg - Objective Vital Signs: Vital Signs Temperature 98.9 F 11/23/16 13:41 Pulse Rate 93 H 11/23/16 10:00 Respiratory Rate 20 11/23/16 13:41 Blood Pressure 109/54 11/23/16 13:41 O2 Sat by Pulse Oximetry (%) 98 11/23/16 09:00 Constitutional: Yes: Calm Eyes: Yes: Conjunctiva Clear HENT: Yes: Atraumatic Neck: Yes: Supple Cardiovascular: Yes: S1, S2 Respiratory: Yes: CTA Bilaterally Gastrointestinal: Yes: Soft Genitourinary: Yes: WNL Musculoskeletal: Yes: WNL Edema: No Neurological: Yes: Oriented Psychiatric: Yes: Oriented Labs: CBC, BMP 11/23/16 06:30 11/23/16 06:30 INR, PTT INR 1.04 (0.82-1.09) 11/15/16 13:11 Problem List - Problems (1) Dialysis AV fistula malfunction Code(s): T82.590A - [facility] COMPL OF SURGICALLY CREATED ARTERIOVENOUS FISTULA, INIT Qualifiers: Encounter type: initial encounter Qualified Code(s): T82.590A - Other mechanical complication of surgically created arteriovenous fistula, initial encounter (2) ESRD (end stage renal disease) Code(s): N18.6 - END STAGE RENAL DISEASE Assessment/Plan Current Medications Generic Name Dose Route Start Last Admin Trade Name Freq PRN Reason Stop Dose Admin Acetaminophen 650 mg 11/22/16 10:42 Tylenol Suppository - [place] Q6H PRN FEVER OR PAIN Albuterol/Ipratropium 1 amp 11/22/16 10:42 Duoneb - NEB Q6H PRN Cinacalcet 30 mg 11/23/16 10:00 11/23/16 12:17 Sensipar - PO 30 mg DAILY [facility] Administration Clonidine 0.3 mg 11/22/16 14:00 11/23/16 14:16 Catapres - PO 0.3 mg TID [facility] Administration Docusate Sodium 300 mg 11/22/16 22:00 11/22/16 21:33 Colace - PO 300 mg HS [facility] Administration Ferrous Sulfate 325 mg 11/23/16 10:00 11/23/16 12:17 Feosol - PO 325 mg DAILY [facility] Administration Heparin Sodium (Porcine) 5,000 unit 11/22/16 22:00 11/23/16 12:17 Heparin - SQ 5,000 unit BID [facility] Administration Ceftriaxone Sodium 50 mls @ 100 mls/hr 11/23/16 10:00 11/23/16 12:18 Rocephin 1gm Ivpb (Pre-Docked) IVPB 100 mls/hr DAILY [facility] Administration Insulin Detemir 18 units 11/22/16 22:00 11/22/16 21:38 Levemir Vial SQ 18 unit HS [facility] Administration Lactulose 10 gm 11/23/16 10:00 11/23/16 12:17 Cephulac (Oral Use) PO 10 gm DAILY [facility] Administration Ondansetron HCl 4 mg 11/22/16 10:42 Zofran Injection IVPB Q6H PRN NAUSEA AND/OR VOMITING Prednisone 10 mg 11/23/16 10:00 11/23/16 12:17 Deltasone - PO 10 mg DAILY [facility] Administration Sevelamer Carbonate 0.8 gm 11/22/16 17:30 11/23/16 12:18 Renvela Powder Packet - PO 0.8 gm TIDCM [facility] Administration Valproate Sodium 500 mg 11/22/16 14:00 11/23/16 14:17 Depakene - PO 500 mg TID [facility] Administration Impression 1. ESRD 2. AV fistula malfunction 3. DM 4. HTN 5. COPD 6. Bipolar 7. anemia 8. hyperkalemia 9. tachycardia Plan - HD in am - will get pt back on MWF schedule for next week - will need fistula, can be done as outpt - cultures negative so far - epogen for anemia - monitor hg - will follow Dr Morales
[2016-11-23] MEDS: ACETAMINOPHEN 650 MG SUPP.RECT PR PRN (19:11)
[2016-11-23] MEDS: DOCUSATE SODIUM 100 MG CAPSULE (FP) PO SCH (22:07)
[2016-11-23] MEDS: INSULIN DETEMIR 100 UNITS/ML MDV SQ SCH (22:10)
--- NOTE | 2016-11-23 22:39 | PN ---
Progress Note, Physician - Current Medication List Current Medications: Active Medications Acetaminophen (Tylenol Suppository -) 650 mg [place] Q6H PRN PRN Reason: FEVER OR PAIN Last Admin: 11/23/16 19:11 Dose: 650 mg Albuterol/Ipratropium (Duoneb -) 1 amp NEB Q6H PRN Cinacalcet (Sensipar -) 30 mg PO DAILY [facility] Last Admin: 11/23/16 12:17 Dose: 30 mg Clonidine (Catapres -) 0.3 mg PO TID [facility] Last Admin: 11/23/16 22:08 Dose: 0.3 mg Docusate Sodium (Colace -) 300 mg PO HS [facility] Last Admin: 11/23/16 22:07 Dose: 300 mg Epoetin Alfredo (Epogen -) 10,000 units IVPUSH ONCE ONE Stop: 11/24/16 16:10 Ferrous Sulfate (Feosol -) 325 mg PO DAILY [facility] Last Admin: 11/23/16 12:17 Dose: 325 mg Heparin Sodium (Porcine) (Heparin -) 5,000 unit SQ BID [facility] Last Admin: 11/23/16 22:10 Dose: 5,000 unit Heparin Sodium (Porcine) (Heparin -) 1,000 unit IVPUSH ONCE ONE Stop: 11/24/16 16:10 Ceftriaxone Sodium (Rocephin 1gm Ivpb (Pre-Docked)) 50 mls @ 100 mls/hr IVPB DAILY [facility] Last Admin: 11/23/16 12:18 Dose: 100 mls/hr Insulin Detemir (Levemir Vial) 18 units SQ HS [facility] Last Admin: 11/23/16 22:10 Dose: 18 unit Lactulose (Cephulac (Oral Use)) 10 gm PO DAILY [facility] Last Admin: 11/23/16 12:17 Dose: 10 gm Ondansetron HCl (Zofran Injection) 4 mg IVPB Q6H PRN PRN Reason: NAUSEA AND/OR VOMITING Prednisone (Deltasone -) 10 mg PO DAILY [facility] Last Admin: 11/23/16 12:17 Dose: 10 mg Sevelamer Carbonate (Renvela Powder Packet -) 0.8 gm PO TIDCM [facility] Last Admin: 11/23/16 17:52 Dose: 0.8 gm Valproate Sodium (Depakene -) 500 mg PO TID [facility] Last Admin: 11/23/16 22:09 Dose: 500 mg - Objective Vital Signs: Vital Signs Temperature 98.3 F 11/23/16 18:00 Pulse Rate 92 H 11/23/16 18:00 Respiratory Rate 18 11/23/16 18:00 Blood Pressure 137/53 11/23/16 18:00 O2 Sat by Pulse Oximetry (%) 97 11/23/16 18:00 Labs: CBC, BMP 11/23/16 06:30 11/23/16 06:30 INR, PTT INR 1.04 (0.82-1.09) 11/15/16 13:11 Problem List - Problems (1) Sepsis Code(s): A41.9 - SEPSIS, UNSPECIFIED ORGANISM (2) Dialysis AV fistula malfunction Code(s): T82.590A - [facility] COMPL OF SURGICALLY CREATED ARTERIOVENOUS FISTULA, INIT Qualifiers: Encounter type: initial encounter Qualified Code(s): T82.590A - Other mechanical complication of surgically created arteriovenous fistula, initial encounter (3) Elevated troponin Code(s): R74.8 - ABNORMAL LEVELS OF OTHER SERUM ENZYMES (4) ESRD (end stage renal disease) Code(s): N18.6 - END STAGE RENAL DISEASE (5) Diabetes Code(s): E11.9 - TYPE 2 DIABETES MELLITUS WITHOUT COMPLICATIONS (6) Anemia Code(s): D64.9 - ANEMIA, UNSPECIFIED (7) HTN (hypertension) Code(s): I10 - ESSENTIAL (PRIMARY) HYPERTENSION (8) Bipolar 1 disorder Code(s): F31.9 - BIPOLAR DISORDER, UNSPECIFIED (9) Lethargic Code(s): R53.83 - OTHER FATIGUE
[2016-11-24] MEDS ORDERED: PT OWN MED DRAWER 7, Y5N ONE ×3 (05:25→17:56)
[2016-11-24] MEDS: VALPROATE SODIUM 250 MG/5 ML UNIT DOSE CUP PO SCH ×3 (05:26→22:52)
[2016-11-24] MEDS: cloNIDine HCL 0.1 MG TABLET PO SCH ×3 (06:16→22:51)
[2016-11-24] MEDS: INSULIN SLIDING SCALE (NOVOLOG) 1 VIAL SQ SCH ×4 (06:16→22:52)
[2016-11-24] MEDS ORDERED: HALOPERIDOL LACTATE 5 MG/ML IM ONE (07:08)
[2016-11-24] MEDS ORDERED: HALOPERIDOL LACTATE 5 MG/ML ONE (07:12)
--- NOTE | 2016-11-24 07:12 | HOSP ---
Subjective - Review of Symptoms Events since last encounter: Paged by RN. Told patient was fighting and combative during dialysis this morning. Went to evaluate the patient. Patient was in wrist restraints and being combative during the procedure. Patient given 1 mg IM haldol Physical Examination Vital Signs: Vital Signs Temperature 97.9 F 11/24/16 06:00 Pulse Rate 88 11/24/16 06:00 Respiratory Rate 20 11/24/16 06:00 Blood Pressure 137/68 11/24/16 06:00 O2 Sat by Pulse Oximetry (%) 98 11/24/16 06:00 Labs: CBC, BMP 11/23/16 06:30 11/23/16 06:30 Visit type - Emergency Visit Emergency Visit: Yes ED Registration Date: 11/15/16 Care time: The patient presented to the Emergency Department on the above date and was hospitalized for further evaluation of their emergent condition. - New Patient This patient is new to me today: Yes Date on this admission: 11/27/16 - Critical Care Critical Care patient: No
[2016-11-24] MEDS ORDERED: EPOETIN ALFA 10,000 UNIT/1 ML VIAL IVPUSH ONE (08:00)
[2016-11-24] MEDS ORDERED: HEPARIN NA (PORCINE) 5,000 UNITS/ML 1ML VIAL IVPUSH ONE (08:00)
--- NOTE | 2016-11-24 08:32 | PN ---
Progress Note, Physician - Current Medication List Current Medications: Active Medications Acetaminophen (Tylenol Suppository -) 650 mg [place] Q6H PRN PRN Reason: FEVER OR PAIN Last Admin: 11/23/16 19:11 Dose: 650 mg Albuterol/Ipratropium (Duoneb -) 1 amp NEB Q6H PRN Cinacalcet (Sensipar -) 30 mg PO DAILY [facility] Last Admin: 11/23/16 12:17 Dose: 30 mg Clonidine (Catapres -) 0.3 mg PO TID [facility] Last Admin: 11/24/16 06:16 Dose: Not Given Docusate Sodium (Colace -) 300 mg PO HS [facility] Last Admin: 11/23/16 22:07 Dose: 300 mg Ferrous Sulfate (Feosol -) 325 mg PO DAILY [facility] Last Admin: 11/23/16 12:17 Dose: 325 mg Heparin Sodium (Porcine) (Heparin -) 5,000 unit SQ BID [facility] Last Admin: 11/23/16 22:10 Dose: 5,000 unit Ceftriaxone Sodium (Rocephin 1gm Ivpb (Pre-Docked)) 50 mls @ 100 mls/hr IVPB DAILY [facility] Last Admin: 11/23/16 12:18 Dose: 100 mls/hr Insulin Aspart (Novolog Vial Sliding Scale -) 1 vial SQ ACHS [facility] PRN Reason: Protocol Last Admin: 11/24/16 06:16 Dose: 6 unit Insulin Detemir (Levemir Vial) 25 units SQ HS [facility] Lactulose (Cephulac (Oral Use)) 10 gm PO DAILY [facility] Last Admin: 11/23/16 12:17 Dose: 10 gm Ondansetron HCl (Zofran Injection) 4 mg IVPB Q6H PRN PRN Reason: NAUSEA AND/OR VOMITING Prednisone (Deltasone -) 10 mg PO DAILY [facility] Last Admin: 11/23/16 12:17 Dose: 10 mg Sevelamer Carbonate (Renvela Powder Packet -) 0.8 gm PO TIDCM [facility] Last Admin: 11/23/16 17:52 Dose: 0.8 gm Valproate Sodium (Depakene -) 500 mg PO TID [facility] Last Admin: 11/24/16 05:26 Dose: 500 mg - Objective Vital Signs: Vital Signs Temperature 98.8 F 11/24/16 06:55 Pulse Rate 88 11/24/16 08:00 Respiratory Rate 18 11/24/16 08:00 Blood Pressure 124/46 11/24/16 08:00 O2 Sat by Pulse Oximetry (%) 98 11/24/16 06:00 Eyes: Yes: WNL, Conjunctiva Clear, EOM Intact HENT: Yes: WNL, Atraumatic, Normocephalic Neck: Yes: WNL, Supple, Trachea Midline Cardiovascular: Yes: WNL, Regular Rate and Rhythm Respiratory: Yes: WNL, Regular, CTA Bilaterally Gastrointestinal: Yes: WNL, Normal Bowel Sounds Genitourinary: Yes: WNL Musculoskeletal: Yes: WNL Extremities: Yes: WNL Edema: No Integumentary: Yes: WNL Neurological: Yes: WNL, Alert, Oriented ...Motor Strength: WNL Psychiatric: Yes: WNL Labs: CBC, BMP 11/23/16 06:30 11/23/16 06:30 INR, PTT INR 1.04 (0.82-1.09) 11/15/16 13:11 Assessment/Plan elevated troponin fever, tachycardia, presumed sepsis nonfunctioning HD access Persistent sinus tach Recc Troponin slightly elevated with normal CK and trop did not trend up-unlikely Type I IN, more likely secondary to sepsis and anemia in setting of ESRD Echo showed hyperdynamic LV/RV systolic function, mild to mod AR, mild MR, unclear if pericardial effusion anemia improved with PRBCs sinus tach improving, no arrhythmias on tele since admission, can dc tele at this point will consider ischemic evaluation once medically improves, would defer to outpatient setting
[2016-11-24 08:40] LABS: MCHC 31.3 g/dl (32.0-36.0); MEAN CELL VOLUME 92.7 fl (80-96); MEAN PLT VOLUME 7.9 fl (7.5-11.1); PLATELET COUNT 229 K/MM3 (134-434); WHITE BLOOD COUNT 8.2 K/mm3 (4.0-10.0)
[2016-11-24 09:05] LABS: ANION GAP 15 (8-16); CALCIUM 8.8 mg/dL (8.5-10.1); CO2 28 mmol/L (21-32); CREATININE 6.9 mg/dL (0.55-1.02); GLUCOSE,RANDOM 242 mg/dL (74-106)
[2016-11-24] MEDS: CINACALCET HCL 30 MG TAB (FP) PO SCH (12:20)
[2016-11-24] MEDS: HEPARIN NA (PORCINE) 5,000 UNITS/ML 1ML VIAL SQ SCH ×2 (12:20→22:51)
[2016-11-24] MEDS: FERROUS SO4 325 MG TABLET (FP) PO SCH (12:20)
[2016-11-24] MEDS: predniSONE 10 MG TABLET (UD) PO SCH (12:20)
[2016-11-24] MEDS: SEVELAMER CARBONATE 0.8 GM POWDER PACKET PO SCH ×3 (12:21→18:03)
[2016-11-24] MEDS: LACTULOSE 20 GM/30 ML UDC (FOR ORAL USE ONLY) PO SCH (12:31)
--- NOTE | 2016-11-24 13:03 | PN ---
Progress Note, Physician History of Present Illness: Pt seen and examined at bedside. She is awake and appears comfortable. - Current Medication List Current Medications: Active Medications Acetaminophen (Tylenol Suppository -) 650 mg [place] Q6H PRN PRN Reason: FEVER OR PAIN Last Admin: 11/23/16 19:11 Dose: 650 mg Albuterol/Ipratropium (Duoneb -) 1 amp NEB Q6H PRN Cinacalcet (Sensipar -) 30 mg PO DAILY [facility] Last Admin: 11/24/16 12:20 Dose: 30 mg Clonidine (Catapres -) 0.3 mg PO TID [facility] Last Admin: 11/24/16 06:16 Dose: Not Given Docusate Sodium (Colace -) 300 mg PO HS [facility] Last Admin: 11/23/16 22:07 Dose: 300 mg Ferrous Sulfate (Feosol -) 325 mg PO DAILY [facility] Last Admin: 11/24/16 12:20 Dose: 325 mg Heparin Sodium (Porcine) (Heparin -) 5,000 unit SQ BID [facility] Last Admin: 11/24/16 12:20 Dose: 5,000 unit Ceftriaxone Sodium (Rocephin 1gm Ivpb (Pre-Docked)) 50 mls @ 100 mls/hr IVPB DAILY [facility] Last Admin: 11/23/16 12:18 Dose: 100 mls/hr Insulin Aspart (Novolog Vial Sliding Scale -) 1 vial SQ ACHS [facility] PRN Reason: Protocol Last Admin: 11/24/16 12:25 Dose: 6 unit Insulin Detemir (Levemir Vial) 25 units SQ HS [facility] Lactulose (Cephulac (Oral Use)) 10 gm PO DAILY [facility] Last Admin: 11/24/16 12:31 Dose: Not Given Ondansetron HCl (Zofran Injection) 4 mg IVPB Q6H PRN PRN Reason: NAUSEA AND/OR VOMITING Prednisone (Deltasone -) 10 mg PO DAILY [facility] Last Admin: 11/24/16 12:20 Dose: 10 mg Sevelamer Carbonate (Renvela Powder Packet -) 0.8 gm PO TIDCM [facility] Last Admin: 11/24/16 12:21 Dose: 0.8 gm Valproate Sodium (Depakene -) 500 mg PO TID [facility] Last Admin: 11/24/16 05:26 Dose: 500 mg - Objective Vital Signs: Vital Signs Temperature 98.8 F 11/24/16 06:55 Pulse Rate 91 H 11/24/16 12:25 Respiratory Rate 20 11/24/16 12:25 Blood Pressure 157/65 11/24/16 12:25 O2 Sat by Pulse Oximetry (%) 98 11/24/16 06:00 Constitutional: Yes: Calm Eyes: Yes: Conjunctiva Clear HENT: Yes: Atraumatic Neck: Yes: Supple Cardiovascular: Yes: S1, S2 Respiratory: Yes: CTA Bilaterally Gastrointestinal: Yes: Soft Genitourinary: Yes: WNL Musculoskeletal: Yes: WNL Edema: No Neurological: Yes: Oriented Psychiatric: Yes: Oriented Labs: CBC, BMP 11/24/16 07:00 11/24/16 07:00 INR, PTT INR 1.04 (0.82-1.09) 11/15/16 13:11 Problem List - Problems (1) Dialysis AV fistula malfunction Code(s): T82.590A - [facility] COMPL OF SURGICALLY CREATED ARTERIOVENOUS FISTULA, INIT Qualifiers: Encounter type: initial encounter Qualified Code(s): T82.590A - Other mechanical complication of surgically created arteriovenous fistula, initial encounter (2) ESRD (end stage renal disease) Code(s): N18.6 - END STAGE RENAL DISEASE Assessment/Plan Current Medications Generic Name Dose Route Start Last Admin Trade Name Freq PRN Reason Stop Dose Admin Acetaminophen 650 mg 11/22/16 10:42 11/23/16 19:11 Tylenol Suppository - IA 650 mg Q6H PRN Administration FEVER OR PAIN Albuterol/Ipratropium 1 amp 11/22/16 10:42 Duoneb - NEB Q6H PRN Cinacalcet 30 mg 11/23/16 10:00 11/24/16 12:20 Sensipar - PO 30 mg DAILY [facility] Administration Clonidine 0.3 mg 11/22/16 14:00 11/24/16 06:16 Catapres - PO Not Given TID [facility] Docusate Sodium 300 mg 11/22/16 22:00 11/23/16 22:07 Colace - PO 300 mg HS [facility] Administration Ferrous Sulfate 325 mg 11/23/16 10:00 11/24/16 12:20 Feosol - PO 325 mg DAILY [facility] Administration Heparin Sodium (Porcine) 5,000 unit 11/22/16 22:00 11/24/16 12:20 Heparin - SQ 5,000 unit BID [facility] Administration Ceftriaxone Sodium 50 mls @ 100 mls/hr 11/23/16 10:00 11/23/16 12:18 Rocephin 1gm Ivpb (Pre-Docked) IVPB 100 mls/hr DAILY [facility] Administration Insulin Aspart 1 vial 11/24/16 07:00 11/24/16 12:25 Novolog Vial Sliding Scale - SQ 6 unit ACHS [facility] Administration Protocol Insulin Detemir 25 units 11/24/16 22:00 Levemir Vial SQ HS [facility] Lactulose 10 gm 11/23/16 10:00 11/24/16 12:31 Cephulac (Oral Use) PO Not Given DAILY [facility] Ondansetron HCl 4 mg 11/22/16 10:42 Zofran Injection IVPB Q6H PRN NAUSEA AND/OR VOMITING Prednisone 10 mg 11/23/16 10:00 11/24/16 12:20 Deltasone - PO 10 mg DAILY [facility] Administration Sevelamer Carbonate 0.8 gm 11/22/16 17:30 11/24/16 12:21 Renvela Powder Packet - PO 0.8 gm TIDCM [facility] Administration Valproate Sodium 500 mg 11/22/16 14:00 11/24/16 05:26 Depakene - PO 500 mg TID [facility] Administration Impression 1. ESRD 2. AV fistula malfunction 3. DM 4. HTN 5. COPD 6. Bipolar 7. anemia 8. hyperkalemia 9. tachycardia Plan - HD today - transfused one unit prbc - cont epogen - sent stool for occult blood - will get pt back on MWF schedule for next week - will need fistula, can be done as outpt - monitor hg - will follow Dr Morales
--- NOTE | 2016-11-24 13:21 | PN ---
Progress Note, Physician History of Present Illness: stable wbc is normal afebrile patient pulled out iv no iv access - Current Medication List Current Medications: Active Medications Acetaminophen (Tylenol Suppository -) 650 mg [place] Q6H PRN PRN Reason: FEVER OR PAIN Last Admin: 11/23/16 19:11 Dose: 650 mg Albuterol/Ipratropium (Duoneb -) 1 amp NEB Q6H PRN Cinacalcet (Sensipar -) 30 mg PO DAILY [facility] Last Admin: 11/24/16 12:20 Dose: 30 mg Clonidine (Catapres -) 0.3 mg PO TID [facility] Last Admin: 11/24/16 06:16 Dose: Not Given Docusate Sodium (Colace -) 300 mg PO HS [facility] Last Admin: 11/23/16 22:07 Dose: 300 mg Ferrous Sulfate (Feosol -) 325 mg PO DAILY [facility] Last Admin: 11/24/16 12:20 Dose: 325 mg Heparin Sodium (Porcine) (Heparin -) 5,000 unit SQ BID [facility] Last Admin: 11/24/16 12:20 Dose: 5,000 unit Ceftriaxone Sodium (Rocephin 1gm Ivpb (Pre-Docked)) 50 mls @ 100 mls/hr IVPB DAILY [facility] Last Admin: 11/23/16 12:18 Dose: 100 mls/hr Insulin Aspart (Novolog Vial Sliding Scale -) 1 vial SQ ACHS [facility] PRN Reason: Protocol Last Admin: 11/24/16 12:25 Dose: 6 unit Insulin Detemir (Levemir Vial) 25 units SQ HS [facility] Lactulose (Cephulac (Oral Use)) 10 gm PO DAILY [facility] Last Admin: 11/24/16 12:31 Dose: Not Given Ondansetron HCl (Zofran Injection) 4 mg IVPB Q6H PRN PRN Reason: NAUSEA AND/OR VOMITING Prednisone (Deltasone -) 10 mg PO DAILY [facility] Last Admin: 11/24/16 12:20 Dose: 10 mg Sevelamer Carbonate (Renvela Powder Packet -) 0.8 gm PO TIDCM [facility] Last Admin: 11/24/16 12:21 Dose: 0.8 gm Valproate Sodium (Depakene -) 500 mg PO TID [facility] Last Admin: 11/24/16 05:26 Dose: 500 mg - Objective Vital Signs: Vital Signs Temperature 98.8 F 11/24/16 06:55 Pulse Rate 91 H 11/24/16 12:25 Respiratory Rate 20 11/24/16 12:25 Blood Pressure 157/65 11/24/16 12:25 O2 Sat by Pulse Oximetry (%) 98 11/24/16 06:00 Constitutional: Yes: Calm, Other Cardiovascular: Yes: Regular Rate and Rhythm Respiratory: Yes: Regular, Poor Air Entry Gastrointestinal: Yes: Normal Bowel Sounds, Soft Musculoskeletal: Yes: Other Extremities: Yes: Other Neurological: Yes: Alert, Other Labs: CBC, BMP 11/24/16 07:00 11/24/16 07:00 INR, PTT INR 1.04 (0.82-1.09) 11/15/16 13:11 Assessment/Plan Problem List - Problems (1) Dialysis AV fistula malfunction Code(s): T82.590A - [facility] COMPL OF SURGICALLY CREATED ARTERIOVENOUS FISTULA, INIT Qualifiers: Encounter type: initial encounter Qualified Code(s): T82.590A - Other mechanical complication of surgically created arteriovenous fistula, initial encounter (2) ESRD (end stage renal disease) Code(s): N18.6 - END STAGE RENAL DISEASE (3) Lethargic Code(s): R53.83 - OTHER FATIGUE (4) Leukocytosis, unspecified Code(s): D72.829 - ELEVATED WHITE BLOOD CELL COUNT, UNSPECIFIED plan stopped all abx we will see how patient behaves
[2016-11-24] MEDS: CEFTRIAXONE 50 ML IVPB SCH (14:43)
[2016-11-24] MEDS: DOCUSATE SODIUM 100 MG CAPSULE (FP) PO SCH (22:51)
[2016-11-24] MEDS: INSULIN DETEMIR 100 UNITS/ML MDV SQ SCH (22:58)
--- NOTE | 2016-11-24 23:46 | PN ---
Progress Note, Physician - Current Medication List Current Medications: Active Medications Acetaminophen (Tylenol Suppository -) 650 mg [place] Q6H PRN PRN Reason: FEVER OR PAIN Last Admin: 11/23/16 19:11 Dose: 650 mg Albuterol/Ipratropium (Duoneb -) 1 amp NEB Q6H PRN Cinacalcet (Sensipar -) 30 mg PO DAILY [facility] Last Admin: 11/24/16 12:20 Dose: 30 mg Clonidine (Catapres -) 0.3 mg PO TID [facility] Last Admin: 11/24/16 22:51 Dose: 0.3 mg Docusate Sodium (Colace -) 300 mg PO HS [facility] Last Admin: 11/24/16 22:51 Dose: 300 mg Ferrous Sulfate (Feosol -) 325 mg PO DAILY [facility] Last Admin: 11/24/16 12:20 Dose: 325 mg Heparin Sodium (Porcine) (Heparin -) 5,000 unit SQ BID [facility] Last Admin: 11/24/16 22:51 Dose: 5,000 unit Insulin Aspart (Novolog Vial Sliding Scale -) 1 vial SQ ACHS [facility] PRN Reason: Protocol Last Admin: 11/24/16 22:52 Dose: 2 unit Insulin Detemir (Levemir Vial) 25 units SQ HS [facility] Last Admin: 11/24/16 22:58 Dose: 25 unit Lactulose (Cephulac (Oral Use)) 10 gm PO DAILY [facility] Last Admin: 11/24/16 12:31 Dose: Not Given Ondansetron HCl (Zofran Injection) 4 mg IVPB Q6H PRN PRN Reason: NAUSEA AND/OR VOMITING Prednisone (Deltasone -) 10 mg PO DAILY [facility] Last Admin: 11/24/16 12:20 Dose: 10 mg Sevelamer Carbonate (Renvela Powder Packet -) 0.8 gm PO TIDCM [facility] Last Admin: 11/24/16 18:03 Dose: 0.8 gm Valproate Sodium (Depakene -) 500 mg PO TID [facility] Last Admin: 11/24/16 22:52 Dose: 500 mg - Objective Vital Signs: Vital Signs Temperature 98.4 F 11/24/16 18:40 Pulse Rate 88 11/24/16 18:40 Respiratory Rate 20 11/24/16 18:40 Blood Pressure 162/67 11/24/16 18:40 O2 Sat by Pulse Oximetry (%) 98 11/24/16 09:00 Labs: CBC, BMP 11/24/16 07:00 11/24/16 07:00 INR, PTT INR 1.04 (0.82-1.09) 11/15/16 13:11 Problem List - Problems (1) Sepsis Code(s): A41.9 - SEPSIS, UNSPECIFIED ORGANISM (2) Dialysis AV fistula malfunction Code(s): T82.590A - [facility] COMPL OF SURGICALLY CREATED ARTERIOVENOUS FISTULA, INIT Qualifiers: Encounter type: initial encounter Qualified Code(s): T82.590A - Other mechanical complication of surgically created arteriovenous fistula, initial encounter (3) Elevated troponin Code(s): R74.8 - ABNORMAL LEVELS OF OTHER SERUM ENZYMES (4) ESRD (end stage renal disease) Code(s): N18.6 - END STAGE RENAL DISEASE (5) Diabetes Code(s): E11.9 - TYPE 2 DIABETES MELLITUS WITHOUT COMPLICATIONS (6) Anemia Code(s): D64.9 - ANEMIA, UNSPECIFIED (7) HTN (hypertension) Code(s): I10 - ESSENTIAL (PRIMARY) HYPERTENSION (8) Bipolar 1 disorder Code(s): F31.9 - BIPOLAR DISORDER, UNSPECIFIED (9) Lethargic Code(s): R53.83 - OTHER FATIGUE
[2016-11-25] MEDS ORDERED: PT OWN MED DRAWER 7, Y5N ONE ×3 (06:08→21:50)
[2016-11-25] MEDS: VALPROATE SODIUM 250 MG/5 ML UNIT DOSE CUP PO SCH ×3 (06:34→21:55)
[2016-11-25] MEDS: INSULIN SLIDING SCALE (NOVOLOG) 1 VIAL SQ SCH ×4 (06:34→21:57)
[2016-11-25] MEDS: cloNIDine HCL 0.1 MG TABLET PO SCH ×3 (06:34→21:56)
[2016-11-25 08:14] LABS: BASOPHIL 0.4 % (0-2.0); MCH 29.9 pg (25.7-33.7); MCHC 33.5 g/dl (32.0-36.0); MEAN CELL VOLUME 89.1 fl (80-96); MEAN PLT VOLUME 7.8 fl (7.5-11.1); NEUTROPHILS 77.6 % (42.8-82.8); PLATELET COUNT 238 K/MM3 (134-434); RDW 17.4 % (11.6-15.6); WHITE BLOOD COUNT 7.6 K/mm3 (4.0-10.0)
--- NOTE | 2016-11-25 09:11 | PN ---
Progress Note, Physician - Current Medication List Current Medications: Active Medications Acetaminophen (Tylenol Suppository -) 650 mg [place] Q6H PRN PRN Reason: FEVER OR PAIN Last Admin: 11/23/16 19:11 Dose: 650 mg Albuterol/Ipratropium (Duoneb -) 1 amp NEB Q6H PRN Cinacalcet (Sensipar -) 30 mg PO DAILY [facility] Last Admin: 11/24/16 12:20 Dose: 30 mg Clonidine (Catapres -) 0.3 mg PO TID [facility] Last Admin: 11/25/16 06:34 Dose: 0.3 mg Docusate Sodium (Colace -) 300 mg PO HS [facility] Last Admin: 11/24/16 22:51 Dose: 300 mg Ferrous Sulfate (Feosol -) 325 mg PO DAILY [facility] Last Admin: 11/24/16 12:20 Dose: 325 mg Heparin Sodium (Porcine) (Heparin -) 5,000 unit SQ BID [facility] Last Admin: 11/24/16 22:51 Dose: 5,000 unit Insulin Aspart (Novolog Vial Sliding Scale -) 1 vial SQ ACHS [facility] PRN Reason: Protocol Last Admin: 11/25/16 06:34 Dose: 2 unit Insulin Detemir (Levemir Vial) 25 units SQ HS [facility] Last Admin: 11/24/16 22:58 Dose: 25 unit Lactulose (Cephulac (Oral Use)) 10 gm PO DAILY [facility] Last Admin: 11/24/16 12:31 Dose: Not Given Ondansetron HCl (Zofran Injection) 4 mg IVPB Q6H PRN PRN Reason: NAUSEA AND/OR VOMITING Prednisone (Deltasone -) 10 mg PO DAILY [facility] Last Admin: 11/24/16 12:20 Dose: 10 mg Sevelamer Carbonate (Renvela Powder Packet -) 0.8 gm PO TIDCM [facility] Last Admin: 11/24/16 18:03 Dose: 0.8 gm Valproate Sodium (Depakene -) 500 mg PO TID [facility] Last Admin: 11/25/16 06:34 Dose: 500 mg - Objective Vital Signs: Vital Signs Temperature 98.2 F 11/25/16 06:00 Pulse Rate 88 11/25/16 06:00 Respiratory Rate 20 11/25/16 06:00 Blood Pressure 148/62 11/25/16 06:00 O2 Sat by Pulse Oximetry (%) 96 11/25/16 00:00 Eyes: Yes: WNL, Conjunctiva Clear, EOM Intact HENT: Yes: WNL, Atraumatic, Normocephalic Neck: Yes: WNL, Supple, Trachea Midline Cardiovascular: Yes: WNL, Regular Rate and Rhythm Respiratory: Yes: WNL, Regular, CTA Bilaterally Gastrointestinal: Yes: WNL, Normal Bowel Sounds Genitourinary: Yes: WNL Musculoskeletal: Yes: WNL Extremities: Yes: WNL Edema: No Integumentary: Yes: WNL Neurological: Yes: WNL, Alert, Oriented ...Motor Strength: WNL Psychiatric: Yes: WNL Labs: CBC, BMP 11/25/16 07:40 11/24/16 07:00 INR, PTT INR 1.04 (0.82-1.09) 11/15/16 13:11 Assessment/Plan elevated troponin fever, tachycardia, presumed sepsis nonfunctioning HD access Persistent sinus tach Recc Troponin slightly elevated with normal CK and trop did not trend up-unlikely Type I IA, more likely secondary to sepsis and anemia in setting of ESRD Echo showed hyperdynamic LV/RV systolic function, mild to mod AR, mild MR, unclear if pericardial effusion anemia improved with PRBCs sinus tach improving, no arrhythmias on tele since admission, can dc tele at this point will consider ischemic evaluation once medically improves, would defer to outpatient setting
[2016-11-25] MEDS: SEVELAMER CARBONATE 0.8 GM POWDER PACKET PO SCH ×3 (09:16→17:59)
[2016-11-25] MEDS: LACTULOSE 20 GM/30 ML UDC (FOR ORAL USE ONLY) PO SCH (09:27)
[2016-11-25] MEDS: FERROUS SO4 325 MG TABLET (FP) PO SCH (09:28)
[2016-11-25] MEDS: HEPARIN NA (PORCINE) 5,000 UNITS/ML 1ML VIAL SQ SCH ×2 (09:28→21:57)
[2016-11-25] MEDS: predniSONE 10 MG TABLET (UD) PO SCH (09:28)
[2016-11-25] MEDS: CINACALCET HCL 30 MG TAB (FP) PO SCH (09:29)
[2016-11-25] MEDS ORDERED: INSULIN (NOVOLOG) ASPART 100 UNITS/ML 10ML VIAL ONE ×2 (11:23→21:43)
--- NOTE | 2016-11-25 13:24 | PN ---
Progress Note, Physician History of Present Illness: stable no new issue - Current Medication List Current Medications: Active Medications Acetaminophen (Tylenol Suppository -) 650 mg [place] Q6H PRN PRN Reason: FEVER OR PAIN Last Admin: 11/23/16 19:11 Dose: 650 mg Albuterol/Ipratropium (Duoneb -) 1 amp NEB Q6H PRN Cinacalcet (Sensipar -) 30 mg PO DAILY [facility] Last Admin: 11/25/16 09:29 Dose: 30 mg Clonidine (Catapres -) 0.3 mg PO TID [facility] Last Admin: 11/25/16 06:34 Dose: 0.3 mg Docusate Sodium (Colace -) 300 mg PO HS [facility] Last Admin: 11/24/16 22:51 Dose: 300 mg Ferrous Sulfate (Feosol -) 325 mg PO DAILY [facility] Last Admin: 11/25/16 09:28 Dose: 325 mg Heparin Sodium (Porcine) (Heparin -) 5,000 unit SQ BID [facility] Last Admin: 11/25/16 09:28 Dose: 5,000 unit Insulin Aspart (Novolog Vial Sliding Scale -) 1 vial SQ ACHS [facility] PRN Reason: Protocol Last Admin: 11/25/16 11:23 Dose: 2 unit Insulin Detemir (Levemir Vial) 25 units SQ HS [facility] Last Admin: 11/24/16 22:58 Dose: 25 unit Lactulose (Cephulac (Oral Use)) 10 gm PO DAILY [facility] Last Admin: 11/25/16 09:27 Dose: Not Given Ondansetron HCl (Zofran Injection) 4 mg IVPB Q6H PRN PRN Reason: NAUSEA AND/OR VOMITING Prednisone (Deltasone -) 10 mg PO DAILY [facility] Last Admin: 11/25/16 09:28 Dose: 10 mg Sevelamer Carbonate (Renvela Powder Packet -) 0.8 gm PO TIDCM [facility] Last Admin: 11/25/16 09:16 Dose: 0.8 gm Valproate Sodium (Depakene -) 500 mg PO TID [facility] Last Admin: 11/25/16 06:34 Dose: 500 mg - Objective Vital Signs: Vital Signs Temperature 97.8 F 11/25/16 09:51 Pulse Rate 81 11/25/16 09:51 Respiratory Rate 20 11/25/16 09:51 Blood Pressure 159/70 11/25/16 09:51 O2 Sat by Pulse Oximetry (%) 100 11/25/16 09:00 Constitutional: Yes: No Distress, Calm Cardiovascular: Yes: Regular Rate and Rhythm Respiratory: Yes: Regular, CTA Bilaterally Gastrointestinal: Yes: Normal Bowel Sounds, Soft Musculoskeletal: Yes: WNL Extremities: Yes: Other Neurological: Yes: Alert Psychiatric: Yes: Alert Labs: CBC, BMP 11/25/16 07:40 11/24/16 07:00 INR, PTT INR 1.04 (0.82-1.09) 11/15/16 13:11 Assessment/Plan Problem List - Problems (1) Dialysis AV fistula malfunction Code(s): T82.590A - [facility] COMPL OF SURGICALLY CREATED ARTERIOVENOUS FISTULA, INIT Qualifiers: Encounter type: initial encounter Qualified Code(s): T82.590A - Other mechanical complication of surgically created arteriovenous fistula, initial encounter (2) ESRD (end stage renal disease) Code(s): N18.6 - END STAGE RENAL DISEASE (3) Lethargic Code(s): R53.83 - OTHER FATIGUE (4) Leukocytosis, unspecified Code(s): D72.829 - ELEVATED WHITE BLOOD CELL COUNT, UNSPECIFIED plan conitnues to be stable rest as per primary team
--- NOTE | 2016-11-25 14:34 | PN ---
Progress Note, Physician History of Present Illness: Pt seen and examined at bedside. She is awake and alert. She complains of left chest discomfort. - Current Medication List Current Medications: Active Medications Acetaminophen (Tylenol Suppository -) 650 mg [place] Q6H PRN PRN Reason: FEVER OR PAIN Last Admin: 11/23/16 19:11 Dose: 650 mg Albuterol/Ipratropium (Duoneb -) 1 amp NEB Q6H PRN Cinacalcet (Sensipar -) 30 mg PO DAILY [facility] Last Admin: 11/25/16 09:29 Dose: 30 mg Clonidine (Catapres -) 0.3 mg PO TID [facility] Last Admin: 11/25/16 13:53 Dose: 0.3 mg Docusate Sodium (Colace -) 300 mg PO HS [facility] Last Admin: 11/24/16 22:51 Dose: 300 mg Ferrous Sulfate (Feosol -) 325 mg PO DAILY [facility] Last Admin: 11/25/16 09:28 Dose: 325 mg Heparin Sodium (Porcine) (Heparin -) 5,000 unit SQ BID [facility] Last Admin: 11/25/16 09:28 Dose: 5,000 unit Insulin Aspart (Novolog Vial Sliding Scale -) 1 vial SQ ACHS [facility] PRN Reason: Protocol Last Admin: 11/25/16 11:23 Dose: 2 unit Insulin Detemir (Levemir Vial) 25 units SQ HS [facility] Last Admin: 11/24/16 22:58 Dose: 25 unit Lactulose (Cephulac (Oral Use)) 10 gm PO DAILY [facility] Last Admin: 11/25/16 09:27 Dose: Not Given Ondansetron HCl (Zofran Injection) 4 mg IVPB Q6H PRN PRN Reason: NAUSEA AND/OR VOMITING Prednisone (Deltasone -) 10 mg PO DAILY [facility] Last Admin: 11/25/16 09:28 Dose: 10 mg Sevelamer Carbonate (Renvela Powder Packet -) 0.8 gm PO TIDCM [facility] Last Admin: 11/25/16 12:00 Dose: 0.8 gm Valproate Sodium (Depakene -) 500 mg PO TID [facility] Last Admin: 11/25/16 13:54 Dose: 500 mg - Objective Vital Signs: Vital Signs Temperature 97.8 F 11/25/16 09:51 Pulse Rate 81 11/25/16 09:51 Respiratory Rate 20 11/25/16 09:51 Blood Pressure 159/70 11/25/16 09:51 O2 Sat by Pulse Oximetry (%) 100 11/25/16 09:00 Constitutional: Yes: Calm Eyes: Yes: Conjunctiva Clear HENT: Yes: Atraumatic Neck: Yes: Supple Cardiovascular: Yes: S1, S2 Respiratory: Yes: CTA Bilaterally, On Nasal O2 Gastrointestinal: Yes: Soft Genitourinary: Yes: WNL Edema: No Neurological: Yes: Oriented Psychiatric: Yes: Oriented Labs: CBC, BMP 11/25/16 07:40 11/24/16 07:00 INR, PTT INR 1.04 (0.82-1.09) 11/15/16 13:11 Problem List - Problems (1) Dialysis AV fistula malfunction Code(s): T82.590A - [facility] COMPL OF SURGICALLY CREATED ARTERIOVENOUS FISTULA, INIT Qualifiers: Encounter type: initial encounter Qualified Code(s): T82.590A - Other mechanical complication of surgically created arteriovenous fistula, initial encounter (2) ESRD (end stage renal disease) Code(s): N18.6 - END STAGE RENAL DISEASE Assessment/Plan Current Medications Generic Name Dose Route Start Last Admin Trade Name Freq PRN Reason Stop Dose Admin Acetaminophen 650 mg 11/22/16 10:42 11/23/16 19:11 Tylenol Suppository - OK 650 mg Q6H PRN Administration FEVER OR PAIN Albuterol/Ipratropium 1 amp 11/22/16 10:42 Duoneb - NEB Q6H PRN Cinacalcet 30 mg 11/23/16 10:00 11/25/16 09:29 Sensipar - PO 30 mg DAILY [facility] Administration Clonidine 0.3 mg 11/22/16 14:00 11/25/16 13:53 Catapres - PO 0.3 mg TID [facility] Administration Docusate Sodium 300 mg 11/22/16 22:00 11/24/16 22:51 Colace - PO 300 mg HS [facility] Administration Ferrous Sulfate 325 mg 11/23/16 10:00 11/25/16 09:28 Feosol - PO 325 mg DAILY [facility] Administration Heparin Sodium (Porcine) 5,000 unit 11/22/16 22:00 11/25/16 09:28 Heparin - SQ 5,000 unit BID [facility] Administration Insulin Aspart 1 vial 11/24/16 07:00 11/25/16 11:23 Novolog Vial Sliding Scale - SQ 2 unit ACHS [facility] Administration Protocol Insulin Detemir 25 units 11/24/16 22:00 11/24/16 22:58 Levemir Vial SQ 25 unit HS [facility] Administration Lactulose 10 gm 11/23/16 10:00 11/25/16 09:27 Cephulac (Oral Use) PO Not Given DAILY [facility] Ondansetron HCl 4 mg 11/22/16 10:42 Zofran Injection IVPB Q6H PRN NAUSEA AND/OR VOMITING Prednisone 10 mg 11/23/16 10:00 11/25/16 09:28 Deltasone - PO 10 mg DAILY [facility] Administration Sevelamer Carbonate 0.8 gm 11/22/16 17:30 11/25/16 12:00 Renvela Powder Packet - PO 0.8 gm TIDCM [facility] Administration Valproate Sodium 500 mg 11/22/16 14:00 11/25/16 13:54 Depakene - PO 500 mg TID [facility] Administration Laboratory Tests 11/24/16 22:44 Stool Occult Blood Positive Impression 1. ESRD 2. AV fistula malfunction 3. DM 4. HTN 5. COPD 6. Bipolar 7. anemia 8. hyperkalemia 9. tachycardia Plan - HD in am - pt will get ecg - cont current meds - will need fistula, can be done as outpt - monitor hg - stool is positive for occult blood, recommend GI eval - will hold heparin on HD - will follow Dr Morales
[2016-11-25 16:01] LABS: TROPONIN I 0.18 ng/ml (0.00-0.05)
--- NOTE | 2016-11-25 18:40 | PN ---
Progress Note, Physician History of Present Illness: Pt has been agitated - Current Medication List Current Medications: Active Medications Acetaminophen (Tylenol Suppository -) 650 mg [place] Q6H PRN PRN Reason: FEVER OR PAIN Last Admin: 11/23/16 19:11 Dose: 650 mg Albuterol/Ipratropium (Duoneb -) 1 amp NEB Q6H PRN Cinacalcet (Sensipar -) 30 mg PO DAILY [facility] Last Admin: 11/25/16 09:29 Dose: 30 mg Clonidine (Catapres -) 0.3 mg PO TID [facility] Last Admin: 11/25/16 13:53 Dose: 0.3 mg Docusate Sodium (Colace -) 300 mg PO HS [facility] Last Admin: 11/24/16 22:51 Dose: 300 mg Epoetin Alfredo (Epogen -) 10,000 units IVPUSH ONCE ONE Stop: 11/26/16 14:35 Ferrous Sulfate (Feosol -) 325 mg PO DAILY [facility] Last Admin: 11/25/16 09:28 Dose: 325 mg Heparin Sodium (Porcine) (Heparin -) 5,000 unit SQ BID [facility] Last Admin: 11/25/16 09:28 Dose: 5,000 unit Insulin Aspart (Novolog Vial Sliding Scale -) 1 vial SQ ACHS [facility] PRN Reason: Protocol Last Admin: 11/25/16 16:49 Dose: 4 unit Insulin Detemir (Levemir Vial) 25 units SQ HS [facility] Last Admin: 11/24/16 22:58 Dose: 25 unit Lactulose (Cephulac (Oral Use)) 10 gm PO DAILY [facility] Last Admin: 11/25/16 09:27 Dose: Not Given Ondansetron HCl (Zofran Injection) 4 mg IVPB Q6H PRN PRN Reason: NAUSEA AND/OR VOMITING Prednisone (Deltasone -) 10 mg PO DAILY [facility] Last Admin: 11/25/16 09:28 Dose: 10 mg Sevelamer Carbonate (Renvela Powder Packet -) 0.8 gm PO TIDCM [facility] Last Admin: 11/25/16 17:59 Dose: 0.8 gm Valproate Sodium (Depakene -) 500 mg PO TID [facility] Last Admin: 11/25/16 13:54 Dose: 500 mg - Objective Vital Signs: Vital Signs Temperature 98.9 F 11/25/16 14:00 Pulse Rate 77 08/27/17 14:00 Respiratory Rate 20 11/25/16 14:00 Blood Pressure 143/69 11/25/16 14:00 O2 Sat by Pulse Oximetry (%) 100 11/25/16 09:00 Constitutional: Yes: No Distress Neck: Yes: WNL, Supple Cardiovascular: Yes: WNL, Regular Rate and Rhythm Respiratory: Yes: WNL, Regular, CTA Bilaterally Gastrointestinal: Yes: WNL, Normal Bowel Sounds, Soft Edema: No Labs: CBC, BMP 11/25/16 07:40 11/24/16 07:00 INR, PTT INR 1.04 (0.82-1.09) 11/15/16 13:11 Problem List - Problems (1) Sepsis Assessment/Plan: Urine culture remains negative BC remain negative Pt is off antibxs Check wbc in am Code(s): A41.9 - SEPSIS, UNSPECIFIED ORGANISM (2) Dialysis AV fistula malfunction Assessment/Plan: S/P thrombectomy and stent placement of lt av fistula Pt to get fistula as outpt Code(s): T82.590A [facility] COMPL OF SURGICALLY CREATED ARTERIOVENOUS FISTULA, INIT Qualifiers: Encounter type: initial encounter Qualified Code(s): T82.590A - Other mechanical complication of surgically created arteriovenous fistula, initial encounter (3) Elevated troponin Assessment/Plan: Due to demand ischemia and not MD Troponin slightly more elevated today Cont to trend cpk/troponin As per cardio Code(s): R74.8 - ABNORMAL LEVELS OF OTHER SERUM ENZYMES (4) ESRD (end stage renal disease) Assessment/Plan: Dialysis as per renal Code(s): N18.6 - END STAGE RENAL DISEASE (5) Diabetes Assessment/Plan: Cont levemir/sliding scale w/ novolog Code(s): E11.9 - TYPE 2 DIABETES MELLITUS WITHOUT COMPLICATIONS (6) Anemia Assessment/Plan: Pt has been tranfused 2 units PRBC's4 Cpnt to monitor H/H Cont [id number] received epogen Will get GI consult Code(s): D64.9 - ANEMIA, UNSPECIFIED (7) HTN (hypertension) Assessment/Plan: Cont catapres Code(s): I10 - ESSENTIAL (PRIMARY) HYPERTENSION (8) Bipolar 1 disorder Assessment/Plan: Pt w/ agitation Will restart haldolol Cont depakote Psych consult Code(s): F31.9 - BIPOLAR DISORDER, UNSPECIFIED (9) Lethargic Assessment/Plan: infectious/metabolic encephalopathy Resolved Code(s): R53.83 - OTHER FATIGUE
--- NOTE | 2016-11-25 19:27 | EKG ---
Test Reason : Blood Pressure : / mmHG Vent. Rate : 080 BPM Atrial Rate : 080 BPM P-R Int : 122 ms QRS Dur : 082 ms QT Int : 420 ms P-R-T Axes : 056 007 113 degrees QTc Int : 484 ms NORMAL SINUS RHYTHM POSSIBLE LEFT ATRIAL ENLARGEMENT PROLONGED QT ABNORMAL ECG WHEN COMPARED WITH ECG OF 16-NOV-2016 16:18, T WAVE INVERSION NOW EVIDENT IN ANTEROLATERAL LEADS PATIENT MOVING DURING EKG Confirmed by FAITH GERARDO, MARK ANTHONY (2016) on 11/25/2016 7:27:04 PM Referred By: Delicia WHITAKER Confirmed By:MARK ANTHONY CUEVAS MD
[2016-11-25 20:03] LABS: TROPONIN I 0.16 ng/ml (0.00-0.05)
[2016-11-25] MEDS: DOCUSATE SODIUM 100 MG CAPSULE (FP) PO SCH (21:47)
[2016-11-25] MEDS: INSULIN DETEMIR 100 UNITS/ML MDV SQ SCH (21:56)
[2016-11-25] MEDS ORDERED: HALOPERIDOL 1 MG TABLET (FP) PO SCH (22:00)
[2016-11-25] MEDS: ACETAMINOPHEN 650 MG SUPP.RECT PR PRN (23:52)
[2016-11-26] MEDS ORDERED: PT OWN MED DRAWER 7, Y5N ONE ×4 (06:31→22:16)
[2016-11-26] MEDS: cloNIDine HCL 0.1 MG TABLET PO SCH ×3 (06:34→22:36)
[2016-11-26] MEDS: VALPROATE SODIUM 250 MG/5 ML UNIT DOSE CUP PO SCH ×3 (06:36→22:34)
[2016-11-26] MEDS: INSULIN SLIDING SCALE (NOVOLOG) 1 VIAL SQ SCH ×4 (06:36→22:34)
[2016-11-26 07:26] LABS: BASOPHIL 0.1 % (0-2.0); EOSINOPHIL 4.1 % (0-4.5); MCH 29.4 pg (25.7-33.7); MCHC 32.9 g/dl (32.0-36.0); MEAN CELL VOLUME 89.5 fl (80-96); MEAN PLT VOLUME 7.8 fl (7.5-11.1); NEUTROPHILS 80.6 % (42.8-82.8); PLATELET COUNT 281 K/MM3 (134-434); RDW 17.4 % (11.6-15.6); WHITE BLOOD COUNT 8.8 K/mm3 (4.0-10.0)
[2016-11-26 07:43] LABS: ALBUMIN 1.9 g/dl (3.4-5.0); ANION GAP 15 (8-16); CO2 29 mmol/L (21-32); GLUCOSE,RANDOM 241 mg/dL (74-106)
[2016-11-26 07:46] LABS: ALK PHOS 113 U/L (45-117); BILIRUBIN,TOTAL 0.2 mg/dL (0.2-1.0); CREATININE 5.3 mg/dL (0.55-1.02); SGOT/AST 18 U/L (15-37); SGPT/ALT < 6 U/L (12-78); TOT PROT 5.5 g/dl (6.4-8.2)
--- NOTE | 2016-11-26 08:15 | PN ---
Progress Note, Physician Chief Complaint: C/o chest pain last night ECG: Baseline artifact, moved during exam. Possible T wave inversions V3- V6 TELE: sinus tach. Duplex LE: negative DVT Guaiac+ - Current Medication List Current Medications: Active Medications Acetaminophen (Tylenol Suppository -) 650 mg [place] Q6H PRN PRN Reason: FEVER OR PAIN Last Admin: 11/25/16 23:52 Dose: 650 mg Albuterol/Ipratropium (Duoneb -) 1 amp NEB Q6H PRN Cinacalcet (Sensipar -) 30 mg PO DAILY [facility] Last Admin: 11/25/16 09:29 Dose: 30 mg Clonidine (Catapres -) 0.3 mg PO TID [facility] Last Admin: 11/26/16 06:34 Dose: Not Given Docusate Sodium (Colace -) 300 mg PO HS [facility] Last Admin: 11/25/16 21:47 Dose: Not Given Epoetin Alfredo (Epogen -) 10,000 units IVPUSH ONCE ONE Stop: 11/26/16 14:35 Ferrous Sulfate (Feosol -) 325 mg PO DAILY [facility] Last Admin: 11/25/16 09:28 Dose: 325 mg Haloperidol (Haldol -) 0.5 mg PO BID [facility] Heparin Sodium (Porcine) (Heparin -) 5,000 unit SQ BID [facility] Last Admin: 11/25/16 21:57 Dose: 5,000 unit Insulin Aspart (Novolog Vial Sliding Scale -) 1 vial SQ ACHS [facility] PRN Reason: Protocol Last Admin: 11/26/16 06:36 Dose: 6 unit Insulin Detemir (Levemir Vial) 25 units SQ [facility] Last Admin: 11/25/16 21:56 Dose: 25 unit Lactulose (Cephulac (Oral Use)) 10 gm PO DAILY [facility] Last Admin: 11/25/16 09:27 Dose: Not Given Ondansetron HCl (Zofran Injection) 4 mg IVPB Q6H PRN PRN Reason: NAUSEA AND/OR VOMITING Prednisone (Deltasone -) 10 mg PO DAILY [facility] Last Admin: 11/25/16 09:28 Dose: 10 mg Sevelamer Carbonate (Renvela Powder Packet -) 0.8 gm PO TIDCM [facility] Last Admin: 11/25/16 17:59 Dose: 0.8 gm Valproate Sodium (Depakene -) 500 mg PO TID [facility] Last Admin: 11/26/16 06:36 Dose: 500 mg - Objective Vital Signs: Vital Signs Temperature 98.4 F 11/26/16 05:21 Pulse Rate 75 11/26/16 05:21 Respiratory Rate 18 11/26/16 05:21 Blood Pressure 120/77 11/26/16 05:21 O2 Sat by Pulse Oximetry (%) 96 11/25/16 21:00 Constitutional: Yes: No Distress Eyes: Yes: Conjunctiva Clear Cardiovascular: Yes: Regular Rate and Rhythm Respiratory: Yes: CTA Bilaterally Gastrointestinal: Yes: Soft (nontender) Edema: No Labs: CBC, BMP 11/26/16 06:00 11/26/16 06:00 INR, PTT INR 1.04 (0.82-1.09) 11/15/16 13:11 Laboratory Tests 11/15/16 11/19/16 11/24/16 13:11 03:30 22:44 WBC Hgb Plt Count Sodium BUN Creatinine Creatine Kinase 68 236 H Troponin I 0.06 H Stool Occult Blood Positive 11/25/16 11/25/16 11/26/16 14:25 19:15 06:00 WBC 8.8 Hgb 10.2 L Plt Count 281 Sodium BUN Creatinine Creatine Kinase 279 H 220 H Troponin I 0.18 H 0.16 H Stool Occult Blood 11/26/16 06:00 WBC Hgb Plt Count Sodium 138 BUN 49 H D Creatinine 5.3 H D Creatine Kinase Troponin I Stool Occult Blood - ....Imaging EKG: Image Reviewed Assessment/Plan Elevated troponin Fever, tachycardia, presumed sepsis, UTI Anemia Guaiac + stool Persistent sinus tach Recc: 1.Troponin slightly elevate likely secondary to sepsis and anemia in setting of ESRD Echo showed hyperdynamic LV/RV systolic function, mild to mod AR, mild MR, unclear if pericardial effusion Now with atypical chest pain symptoms- unclear if at catheter site or if substernal (poor historian). -In light of infection, anemia and guaiac + stool requiring transfusion she does not seem to be a candidate for cath at this point. -Would continue tele, trend enzymes. -ASA 81mg when feasible (guaiac +) -Follow H/H -Statin -Can add B-Tiffanie -Pending clinical course, would favor persantine MIBI when medically stable 2. Anemia: improved with PRBCs, stool guaiac + 3. Sinus tach improving: no arrhythmias on tele since admission
[2016-11-26] MEDS ORDERED: EPOETIN ALFA 10,000 UNIT/1 ML VIAL IVPUSH ONE (09:00)
[2016-11-26 09:03] LABS: CPK 156 IU/L (26-192); TROPONIN I 0.13 ng/ml (0.00-0.05)
[2016-11-26] MEDS: SEVELAMER CARBONATE 0.8 GM POWDER PACKET PO SCH ×3 (09:53→18:52)
[2016-11-26] MEDS: FERROUS SO4 325 MG TABLET (FP) PO SCH (09:53)
[2016-11-26] MEDS: predniSONE 10 MG TABLET (UD) PO SCH (09:54)
[2016-11-26] MEDS: CINACALCET HCL 30 MG TAB (FP) PO SCH (09:54)
[2016-11-26] MEDS: HEPARIN NA (PORCINE) 5,000 UNITS/ML 1ML VIAL SQ SCH ×2 (09:55→22:35)
[2016-11-26] MEDS ORDERED: HALOPERIDOL 0.5 MG TABLET PO SCH (10:00)
[2016-11-26] MEDS ORDERED: HALOPERIDOL LACTATE 5 MG/ML ONE (11:27)
--- NOTE | 2016-11-26 13:08 | PN ---
Progress Note, Physician History of Present Illness: stable no new issues - Current Medication List Current Medications: Active Medications Acetaminophen (Tylenol Suppository -) 650 mg [place] Q6H PRN PRN Reason: FEVER OR PAIN Last Admin: 11/25/16 23:52 Dose: 650 mg Albuterol/Ipratropium (Duoneb -) 1 amp NEB Q6H PRN Cinacalcet (Sensipar -) 30 mg PO DAILY [facility] Last Admin: 11/26/16 09:54 Dose: 30 mg Clonidine (Catapres -) 0.3 mg PO TID [facility] Last Admin: 11/26/16 06:34 Dose: Not Given Docusate Sodium (Colace -) 300 mg PO HS [facility] Last Admin: 11/25/16 21:47 Dose: Not Given Ferrous Sulfate (Feosol -) 325 mg PO DAILY [facility] Last Admin: 11/26/16 09:53 Dose: 325 mg Haloperidol (Haldol -) 1 mg PO BID [facility] Haloperidol (Haldol Injection (Fast Acting) -) 0.5 mg IM Q12H PRN Heparin Sodium (Porcine) (Heparin -) 5,000 unit SQ BID [facility] Last Admin: 11/26/16 09:55 Dose: 5,000 unit Insulin Aspart (Novolog Vial Sliding Scale -) 1 vial SQ ACHS [facility] PRN Reason: Protocol Last Admin: 11/26/16 06:36 Dose: 6 unit Insulin Detemir (Levemir Vial) 25 units SQ HS [facility] Last Admin: 11/25/16 21:56 Dose: 25 unit Lactulose (Cephulac (Oral Use)) 10 gm PO DAILY [facility] Last Admin: 11/25/16 09:27 Dose: Not Given Ondansetron HCl (Zofran Injection) 4 mg IVPB Q6H PRN PRN Reason: NAUSEA AND/OR VOMITING Prednisone (Deltasone -) 10 mg PO DAILY [facility] Last Admin: 11/26/16 09:54 Dose: 10 mg Sevelamer Carbonate (Renvela Powder Packet -) 0.8 gm PO TIDCM [facility] Last Admin: 11/26/16 09:53 Dose: 0.8 gm Valproate Sodium (Depakene -) 500 mg PO TID [facility] Last Admin: 11/26/16 06:36 Dose: 500 mg - Objective Vital Signs: Vital Signs Temperature 98.2 F 11/26/16 10:30 Pulse Rate 109 H 11/26/16 10:30 Respiratory Rate 20 11/26/16 10:30 Blood Pressure 122/53 11/26/16 10:30 O2 Sat by Pulse Oximetry (%) 96 11/25/16 21:00 Constitutional: Yes: No Distress, Calm Cardiovascular: Yes: Regular Rate and Rhythm Respiratory: Yes: Regular, CTA Bilaterally Gastrointestinal: Yes: Normal Bowel Sounds, Soft Extremities: Yes: Other Neurological: Yes: Alert Psychiatric: Yes: Alert Labs: CBC, BMP 11/26/16 06:00 11/26/16 06:00 INR, PTT INR 1.04 (0.82-1.09) 11/15/16 13:11 Assessment/Plan Problem List - Problems (1) Dialysis AV fistula malfunction Code(s): T82.590A - [facility] COMPL OF SURGICALLY CREATED ARTERIOVENOUS FISTULA, INIT Qualifiers: Encounter type: initial encounter Qualified Code(s): T82.590A - Other mechanical complication of surgically created arteriovenous fistula, initial encounter (2) ESRD (end stage renal disease) Code(s): N18.6 - END STAGE RENAL DISEASE (3) Lethargic Code(s): R53.83 - OTHER FATIGUE (4) Leukocytosis, unspecified Code(s): D72.829 - ELEVATED WHITE BLOOD CELL COUNT, UNSPECIFIED plan conitnues to be stable rest as per primary team continue current mgmt
[2016-11-26] MEDS ORDERED: POTASSIUM CHLORIDE TABS 20 MEQ TABLET.ER (FP) PO ONE (13:30)
[2016-11-26] MEDS: LACTULOSE 20 GM/30 ML UDC (FOR ORAL USE ONLY) PO SCH ×2 (14:00→14:27)
--- NOTE | 2016-11-26 14:22 | CON.PSY ---
Psychiatry Consult Chief Complaint: Patient seen for psych eval. History of Psych Illness. Patient is from a Psych N Home. Symptoms: reports: Memory Impairment, Aggressivity - Previous Psychiatric Treatment Outpatient: Less than 6 mos ago Inpatient: Within the last 12 months - Previous Substance Abuse Treatment Outpatient: None Inpatient: None - Reason for Previous Treatment Reason for Previous Treatment: Psychotic Episode - Current Medications Current Medications: Active Medications Acetaminophen (Tylenol Suppository -) 650 mg [place] Q6H PRN PRN Reason: FEVER OR PAIN Last Admin: 11/25/16 23:52 Dose: 650 mg Albuterol/Ipratropium (Duoneb -) 1 amp NEB Q6H PRN Cinacalcet (Sensipar -) 30 mg PO DAILY [facility] Last Admin: 11/26/16 09:54 Dose: 30 mg Clonidine (Catapres -) 0.3 mg PO TID [facility] Last Admin: 11/26/16 06:34 Dose: Not Given Docusate Sodium (Colace -) 300 mg PO HS [facility] Last Admin: 11/25/16 21:47 Dose: Not Given Ferrous Sulfate (Feosol -) 325 mg PO DAILY [facility] Last Admin: 11/26/16 09:53 Dose: 325 mg Haloperidol (Haldol -) 1 mg PO BID [facility] Haloperidol (Haldol Injection (Fast Acting) -) 0.5 mg IM Q12H PRN Heparin Sodium (Porcine) (Heparin -) 5,000 unit SQ BID [facility] Last Admin: 11/26/16 09:55 Dose: 5,000 unit Insulin Aspart (Novolog Vial Sliding Scale -) 1 vial SQ ACHS [facility] PRN Reason: Protocol Last Admin: 11/26/16 11:00 Dose: Not Given Insulin Detemir (Levemir Vial) 25 units SQ HS [facility] Last Admin: 11/25/16 21:56 Dose: 25 unit Lactulose (Cephulac (Oral Use)) 10 gm PO DAILY [facility] Last Admin: 11/25/16 09:27 Dose: Not Given Ondansetron HCl (Zofran Injection) 4 mg IVPB Q6H PRN PRN Reason: NAUSEA AND/OR VOMITING Prednisone (Deltasone -) 10 mg PO DAILY [facility] Last Admin: 11/26/16 09:54 Dose: 10 mg Sevelamer Carbonate (Renvela Powder Packet -) 0.8 gm PO TIDCM [facility] Last Admin: 11/26/16 09:53 Dose: 0.8 gm Valproate Sodium (Depakene -) 500 mg PO TID [facility] Last Admin: 11/26/16 06:36 Dose: 500 mg - Allergies Allergies: Allergies Allergy/AdvReac Type Severity Reaction Status Date / Time labetalol Allergy Intermediate Difficulty Verified 11/15/16 12:25 Breathing latanoprost [From Xalatan] Allergy Intermediate Difficulty Verified 11/15/16 12: 25 Breathing calcium acetate [From PhosLo] Allergy Verified 11/16/16 01:53 peanut Allergy Verified 11/15/16 12:25 - Current Living Status Usual Living Arrangement: Care Home - Current Mental Status Evaluation Appearance: Disheveled Attitude: Guarded - Affect Affect: Labile Appropriateness: Not Appropriate - Mood Mood: Irritable - Speech/Language Expressive: Coherent - Psychomotor Activity Psychomotor Activity: Hyperactive - Thought Process Thought Process: Circumstantial - Thought Content Hallucinations: Absent Delusions: Absent - Self Perception Self Perception: No Impairment - Cognition Attention: Alert Memory, Short Term: 1/3 Memory, Remote with Promptin/3 - Concentration Serial Sevens Intact: No Simple Calculations Intact: No - Abstraction Proverb Interpretation: Impaired Judgement: Minimally Impaired - Insight Insight: Intact - Impulse Control Impulse Control: Minimally Impaired - Suicidal Ideation Suicidal Ideation: No - Homicidal Ideation Homicidal Ideation: No Assessment/Plan ontinue with Psych meds. REturn to Home when meduically stable. Wilol adjust the Haldol dose.
--- NOTE | 2016-11-26 14:38 | PN ---
Progress Note, Physician History of Present Illness: Pt seen and examined at bedside. She tolerated HD today. - Current Medication List Current Medications: Active Medications Acetaminophen (Tylenol Suppository -) 650 mg [place] Q6H PRN PRN Reason: FEVER OR PAIN Last Admin: 11/25/16 23:52 Dose: 650 mg Albuterol/Ipratropium (Duoneb -) 1 amp NEB Q6H PRN Cinacalcet (Sensipar -) 30 mg PO DAILY [facility] Last Admin: 11/26/16 09:54 Dose: 30 mg Clonidine (Catapres -) 0.3 mg PO TID [facility] Last Admin: 11/26/16 14:27 Dose: 0.3 mg Docusate Sodium (Colace -) 300 mg PO HS [facility] Last Admin: 11/25/16 21:47 Dose: Not Given Ferrous Sulfate (Feosol -) 325 mg PO DAILY [facility] Last Admin: 11/26/16 09:53 Dose: 325 mg Haloperidol (Haldol -) 1 mg PO BID [facility] Haloperidol (Haldol Injection (Fast Acting) -) 0.5 mg IM Q12H PRN Heparin Sodium (Porcine) (Heparin -) 5,000 unit SQ BID [facility] Last Admin: 11/26/16 09:55 Dose: 5,000 unit Insulin Aspart (Novolog Vial Sliding Scale -) 1 vial SQ ACHS [facility] PRN Reason: Protocol Last Admin: 11/26/16 11:00 Dose: Not Given Insulin Detemir (Levemir Vial) 25 units SQ HS [facility] Last Admin: 11/25/16 21:56 Dose: 25 unit Lactulose (Cephulac (Oral Use)) 10 gm PO DAILY [facility] Last Admin: 11/26/16 14:27 Dose: 10 gm Ondansetron HCl (Zofran Injection) 4 mg IVPB Q6H PRN PRN Reason: NAUSEA AND/OR VOMITING Prednisone (Deltasone -) 10 mg PO DAILY [facility] Last Admin: 11/26/16 09:54 Dose: 10 mg Sevelamer Carbonate (Renvela Powder Packet -) 0.8 gm PO TIDCM [facility] Last Admin: 11/26/16 13:00 Dose: 0.8 gm Valproate Sodium (Depakene -) 500 mg PO TID [facility] Last Admin: 11/26/16 14:28 Dose: 500 mg - Objective Vital Signs: Vital Signs Temperature 98.2 F 11/26/16 10:30 Pulse Rate 92 H 11/26/16 12:00 Respiratory Rate 18 11/26/16 12:00 Blood Pressure 121/58 11/26/16 12:00 O2 Sat by Pulse Oximetry (%) 96 11/25/16 21:00 Constitutional: Yes: Calm Eyes: Yes: Conjunctiva Clear HENT: Yes: Atraumatic Neck: Yes: Supple Cardiovascular: Yes: S1, S2 Respiratory: Yes: CTA Bilaterally Gastrointestinal: Yes: WNL Genitourinary: Yes: WNL Musculoskeletal: Yes: WNL Edema: No Neurological: Yes: Oriented Psychiatric: Yes: Oriented Labs: CBC, BMP 11/26/16 06:00 11/26/16 06:00 INR, PTT INR 1.04 (0.82-1.09) 11/15/16 13:11 Problem List - Problems (1) Dialysis AV fistula malfunction Code(s): T82.590A - [facility] COMPL OF SURGICALLY CREATED ARTERIOVENOUS FISTULA, INIT Qualifiers: Encounter type: initial encounter Qualified Code(s): T82.590A - Other mechanical complication of surgically created arteriovenous fistula, initial encounter (2) ESRD (end stage renal disease) Code(s): N18.6 - END STAGE RENAL DISEASE Assessment/Plan Current Medications Generic Name Dose Route Start Last Admin Trade Name Freq PRN Reason Stop Dose Admin Acetaminophen 650 mg 11/22/16 10:42 11/25/16 23:52 Tylenol Suppository - [place] 650 mg Q6H PRN Administration FEVER OR PAIN Albuterol/Ipratropium 1 amp 11/22/16 10:42 Duoneb - NEB Q6H PRN Cinacalcet 30 mg 11/23/16 10:00 11/26/16 09:54 Sensipar - PO 30 mg DAILY [facility] Administration Clonidine 0.3 mg 11/22/16 14:00 11/26/16 14:27 Catapres - PO 0.3 mg TID [facility] Administration Docusate Sodium 300 mg 11/22/16 22:00 11/25/16 21:47 Colace - PO Not Given HS [facility] Ferrous Sulfate 325 mg 11/23/16 10:00 11/26/16 09:53 Feosol - PO 325 mg DAILY [facility] Administration Haloperidol 1 mg 11/26/16 22:00 Haldol - PO BID [facility] Haloperidol 0.5 mg 11/26/16 12:34 Haldol Injection (Fast Acting) - IM Q12H PRN Heparin Sodium (Porcine) 5,000 unit 11/22/16 22:00 11/26/16 09:55 Heparin - SQ 5,000 unit BID [facility] Administration Insulin Aspart 1 vial 11/24/16 07:00 11/26/16 11:00 Novolog Vial Sliding Scale - SQ Not Given ACHS [facility] Protocol Insulin Detemir 25 units 11/24/16 22:00 11/25/16 21:56 Levemir Vial SQ 25 unit HS [facility] Administration Lactulose 10 gm 11/23/16 10:00 11/26/16 14:27 Cephulac (Oral Use) PO 10 gm DAILY [facility] Administration Ondansetron HCl 4 mg 11/22/16 10:42 Zofran Injection IVPB Q6H PRN NAUSEA AND/OR VOMITING Prednisone 10 mg 11/23/16 10:00 11/26/16 09:54 Deltasone - PO 10 mg DAILY [facility] Administration Sevelamer Carbonate 0.8 gm 11/22/16 17:30 11/26/16 13:00 Renvela Powder Packet - PO 0.8 gm TIDCM [facility] Administration Valproate Sodium 500 mg 11/22/16 14:00 11/26/16 14:28 Depakene - PO 500 mg TID [facility] Administration Impression 1. ESRD 2. AV fistula malfunction 3. DM 4. HTN 5. COPD 6. Bipolar 7. anemia 8. hyperkalemia 9. tachycardia 10. stool positive for occult blood Plan - pt tolerated HD - cont current meds - will need fistula, can be done as outpt - stool is positive for occult blood, recommend GI eval - will hold heparin on HD - will follow Dr Morales
[2016-11-26] MEDS: HALOPERIDOL LACTATE 5 MG/ML IM PRN (14:39)
[2016-11-26 17:38] LABS: TROPONIN I 0.14 ng/ml (0.00-0.05)
[2016-11-26] MEDS: INSULIN DETEMIR 100 UNITS/ML MDV SQ SCH (22:34)
[2016-11-26] MEDS: HALOPERIDOL 1 MG TABLET (FP) PO SCH (22:36)
[2016-11-26] MEDS: DOCUSATE SODIUM 100 MG CAPSULE (FP) PO SCH (22:45)
--- NOTE | 2016-11-26 22:58 | PN ---
Progress Note, Physician History of Present Illness: Pt has been agitated and is having abdominal pain - Current Medication List Current Medications: Active Medications Acetaminophen (Tylenol Suppository -) 650 mg [place] Q6H PRN PRN Reason: FEVER OR PAIN Last Admin: 11/25/16 23:52 Dose: 650 mg Albuterol/Ipratropium (Duoneb -) 1 amp NEB Q6H PRN Cinacalcet (Sensipar -) 30 mg PO DAILY [facility] Last Admin: 11/26/16 09:54 Dose: 30 mg Clonidine (Catapres -) 0.3 mg PO TID [facility] Last Admin: 11/26/16 22:36 Dose: Not Given Docusate Sodium (Colace -) 300 mg PO HS [facility] Last Admin: 11/26/16 22:45 Dose: Not Given Ferrous Sulfate (Feosol -) 325 mg PO DAILY [facility] Last Admin: 11/26/16 09:53 Dose: 325 mg Haloperidol (Haldol -) 1 mg PO BID [facility] Last Admin: 11/26/16 22:36 Dose: Not Given Haloperidol (Haldol Injection (Fast Acting) -) 0.5 mg IM Q12H PRN Last Admin: 11/26/16 14:39 Dose: 0.5 mg Haloperidol (Haldol Injection (Fast Acting) -) 1 mg IM ONCE ONE Stop: 11/26/16 23:01 Heparin Sodium (Porcine) (Heparin -) 5,000 unit SQ BID [facility] Last Admin: 11/26/16 22:35 Dose: Not Given Insulin Aspart (Novolog Vial Sliding Scale -) 1 vial SQ [facility] PRN Reason: Protocol Last Admin: 11/26/16 22:34 Dose: 12 units Insulin Detemir (Levemir Vial) 25 units SQ HS [facility] Last Admin: 11/26/16 22:34 Dose: 25 units Lactulose (Cephulac (Oral Use)) 10 gm PO DAILY [facility] Last Admin: 11/26/16 14:00 Dose: Not Given Ondansetron HCl (Zofran Injection) 4 mg IVPB Q6H PRN PRN Reason: NAUSEA AND/OR VOMITING Prednisone (Deltasone -) 10 mg PO DAILY [facility] Last Admin: 11/26/16 09:54 Dose: 10 mg Sevelamer Carbonate (Renvela Powder Packet -) 0.8 gm PO TIDCM [facility] Last Admin: 11/26/16 18:52 Dose: Not Given Valproate Sodium (Depakene -) 500 mg PO TID [facility] Last Admin: 11/26/16 22:34 Dose: 500 mg - Objective Vital Signs: Vital Signs Temperature 98.7 F 11/26/16 18:00 Pulse Rate 92 H 11/26/16 18:00 Respiratory Rate 18 11/26/16 18:00 Blood Pressure 171/74 11/26/16 18:00 O2 Sat by Pulse Oximetry (%) 96 11/25/16 21:00 Constitutional: Yes: No Distress Neck: Yes: WNL, Supple Cardiovascular: Yes: WNL, Regular Rate and Rhythm Respiratory: Yes: WNL, Regular, CTA Bilaterally Gastrointestinal: Yes: WNL, Normal Bowel Sounds, Soft Labs: CBC, BMP 11/26/16 06:00 11/26/16 06:00 INR, PTT INR 1.04 (0.82-1.09) 11/15/16 13:11 Problem List - Problems (1) Abdominal pain Assessment/Plan: Will give dose of morphine Check ct scan abdomen GI consult Pt also had hemoccult (+) stool Code(s): R10.9 - UNSPECIFIED ABDOMINAL PAIN (2) Elevated troponin Assessment/Plan: Due to demand ischemia and not [place] Agree w/ cardio Unable to do cardiac cath at this time Stress test as per cardio Code(s): R74.8 - ABNORMAL LEVELS OF OTHER SERUM ENZYMES (3) Sepsis Assessment/Plan: Urine culture remains negative BC remain negative Pt is off antibxs WBC is normal Code(s): A41.9 - SEPSIS, UNSPECIFIED ORGANISM (4) Dialysis AV fistula malfunction Assessment/Plan: S/P thrombectomy and stent placement of lt av fistula Pt to get fistula as outpt DC planning Code(s): T82.590A - [facility] COMPL OF SURGICALLY CREATED ARTERIOVENOUS FISTULA, INIT Qualifiers: Encounter type: initial encounter Qualified Code(s): T82.590A - Other mechanical complication of surgically created arteriovenous fistula, initial encounter (5) ESRD (end stage renal disease) Assessment/Plan: Pt had dialysis today Code(s): N18.6 - END STAGE RENAL DISEASE (6) Diabetes Code(s): E11.9 - TYPE 2 DIABETES MELLITUS WITHOUT COMPLICATIONS (7) Anemia Code(s): D64.9 - ANEMIA, UNSPECIFIED (8) HTN (hypertension) Code(s): I10 - ESSENTIAL (PRIMARY) HYPERTENSION (9) Bipolar 1 disorder Assessment/Plan: Pt w/ agitation Cont depakote/haldol Psych consult noted Code(s): F31.9 - BIPOLAR DISORDER, UNSPECIFIED (10) Lethargic Code(s): R53.83 - OTHER FATIGUE
[2016-11-26] MEDS ORDERED: HALOPERIDOL LACTATE 5 MG/ML IM ONE (23:00)
[2016-11-27] MEDS ORDERED: morphine CARPU-JECT 2 MG/1 ML DISP.SYRIN ONE (00:50)
[2016-11-27] MEDS ORDERED: morphine CARPU-JECT 2 MG/1 ML DISP.SYRIN IM ONE (01:00)
[2016-11-27] MEDS: VALPROATE SODIUM 250 MG/5 ML UNIT DOSE CUP PO SCH ×3 (06:17→23:03)
[2016-11-27] MEDS: cloNIDine HCL 0.1 MG TABLET PO SCH ×3 (06:17→23:04)
[2016-11-27] MEDS: INSULIN SLIDING SCALE (NOVOLOG) 1 VIAL SQ SCH ×4 (06:17→23:05)
[2016-11-27 07:08] LABS: MCH 28.5 pg (25.7-33.7); MCHC 33.2 g/dl (32.0-36.0); MEAN CELL VOLUME 85.8 fl (80-96); MEAN PLT VOLUME 9.6 fl (7.5-11.1); PLATELET COUNT 126 K/MM3 (134-434); RDW 13.6 % (11.6-15.6); WHITE BLOOD COUNT 8.2 K/mm3 (4.0-10.0)
[2016-11-27 08:11] LABS: ALBUMIN 3.2 g/dl (3.4-5.0); ALK PHOS 51 U/L (45-117); ANION GAP 8 (8-16); BILIRUBIN,TOTAL 0.4 mg/dL (0.2-1.0); CALCIUM 8.3 mg/dL (8.5-10.1); CO2 25 mmol/L (21-32); CPK 104 IU/L (26-192); GLUCOSE,RANDOM 81 mg/dL (74-106); SGOT/AST 11 U/L (15-37); SGPT/ALT 17 U/L (12-78); TOT PROT 6.1 g/dl (6.4-8.2); TROPONIN I 0.06 ng/ml (0.00-0.05)
--- NOTE | 2016-11-27 08:29 | PN ---
Progress Note, Physician Chief Complaint: TELE: NSR - Current Medication List Current Medications: Active Medications Acetaminophen (Tylenol Suppository -) 650 mg [place] Q6H PRN PRN Reason: FEVER OR PAIN Last Admin: 11/25/16 23:52 Dose: 650 mg Albuterol/Ipratropium (Duoneb -) 1 amp NEB Q6H PRN Cinacalcet (Sensipar -) 30 mg PO DAILY [facility] Last Admin: 11/26/16 09:54 Dose: 30 mg Clonidine (Catapres -) 0.3 mg PO TID [facility] Last Admin: 11/27/16 06:17 Dose: Not Given Docusate Sodium (Colace -) 300 mg PO HS [facility] Last Admin: 11/26/16 22:45 Dose: Not Given Ferrous Sulfate (Feosol -) 325 mg PO DAILY [facility] Last Admin: 11/26/16 09:53 Dose: 325 mg Haloperidol (Haldol -) 1 mg PO BID [facility] Last Admin: 11/26/16 22:36 Dose: Not Given Haloperidol (Haldol Injection (Fast Acting) -) 0.5 mg IM Q12H PRN Last Admin: 11/26/16 14:39 Dose: 0.5 mg Heparin Sodium (Porcine) (Heparin -) 5,000 unit SQ BID [facility] Last Admin: 11/26/16 22:35 Dose: Not Given Insulin Aspart (Novolog Vial Sliding Scale -) 1 vial SQ ACHS [facility] PRN Reason: Protocol Last Admin: 11/27/16 06:17 Dose: Not Given Insulin Detemir (Levemir Vial) 25 units SQ HS [facility] Last Admin: 11/26/16 22:34 Dose: 25 units Lactulose (Cephulac (Oral Use)) 10 gm PO DAILY [facility] Last Admin: 11/26/16 14:00 Dose: Not Given Ondansetron HCl (Zofran Injection) 4 mg IVPB Q6H PRN PRN Reason: NAUSEA AND/OR VOMITING Prednisone (Deltasone -) 10 mg PO DAILY [facility] Last Admin: 11/26/16 09:54 Dose: 10 mg Sevelamer Carbonate (Renvela Powder Packet -) 0.8 gm PO TIDCM [facility] Last Admin: 11/26/16 18:52 Dose: Not Given Valproate Sodium (Depakene -) 500 mg PO TID [facility] Last Admin: 11/27/16 06:17 Dose: Not Given - Objective Vital Signs: Vital Signs Temperature 98.6 F 11/27/16 06:00 Pulse Rate 83 11/27/16 06:00 Respiratory Rate 20 11/27/16 06:00 Blood Pressure 136/58 11/27/16 06:00 O2 Sat by Pulse Oximetry (%) 100 11/26/16 22:00 Constitutional: Yes: No Distress Cardiovascular: Yes: Regular Rate and Rhythm Respiratory: Yes: CTA Bilaterally Gastrointestinal: Yes: Soft Edema: No Neurological: Yes: Alert, Oriented Labs: CBC, BMP 11/27/16 06:10 11/27/16 06:10 INR, PTT INR 1.04 (0.82-1.09) 11/15/16 13:11 Laboratory Tests 11/24/16 11/27/16 11/27/16 22:44 06:10 06:10 WBC 8.2 Hct 39.4 D Plt Count 126 L D Sodium 141 Potassium 3.9 D Creatinine 2.0 H D Troponin I 0.06 H Stool Occult Blood Positive - ....Imaging EKG: Image Reviewed Assessment/Plan Assessment/Plan Elevated troponin Fever, tachycardia, presumed sepsis, UTI Anemia Guaiac + stool Persistent sinus tach Recc: 1.Troponin slightly elevate likely secondary to sepsis and anemia in setting of ESRD Echo showed hyperdynamic LV/RV systolic function, mild to mod AR, mild MR, unclear if pericardial effusion Now with atypical chest pain symptoms- unclear if at catheter site or if substernal (poor historian). -In light of infection, anemia and guaiac + stool requiring transfusion she does not seem to be a candidate for cath at this point. -Would continue tele, trend enzymes. -ASA 81mg when feasible (guaiac +) -Follow H/H -Statin -Has allergy to Labetalol (?all beta blockers) -Pending clinical course, would favor persantine MIBI when medically stable but patient is currently refusing stress test. 2. Anemia: improved with PRBCs, stool guaiac + 3. Sinus tach improving: no arrhythmias on tele since admission
[2016-11-27] MEDS: LACTULOSE 20 GM/30 ML UDC (FOR ORAL USE ONLY) PO SCH (09:06)
[2016-11-27] MEDS: SEVELAMER CARBONATE 0.8 GM POWDER PACKET PO SCH ×3 (09:06→18:22)
[2016-11-27] MEDS: HEPARIN NA (PORCINE) 5,000 UNITS/ML 1ML VIAL SQ SCH ×2 (09:07→23:04)
[2016-11-27] MEDS: FERROUS SO4 325 MG TABLET (FP) PO SCH (09:07)
[2016-11-27] MEDS: predniSONE 10 MG TABLET (UD) PO SCH (09:07)
[2016-11-27] MEDS: HALOPERIDOL LACTATE 5 MG/ML IM PRN (09:08)
--- NOTE | 2016-11-27 12:03 | PN ---
Progress Note, Physician History of Present Illness: Pt seen and examined at bedside. She is awake and alert. - Current Medication List Current Medications: Active Medications Acetaminophen (Tylenol Suppository -) 650 mg [place] Q6H PRN PRN Reason: FEVER OR PAIN Last Admin: 11/25/16 23:52 Dose: 650 mg Cinacalcet (Sensipar -) 30 mg PO DAILY [facility] Last Admin: 11/26/16 09:54 Dose: 30 mg Clonidine (Catapres -) 0.3 mg PO TID [facility] Last Admin: 11/27/16 06:17 Dose: Not Given Docusate Sodium (Colace -) 300 mg PO HS [facility] Last Admin: 11/26/16 22:45 Dose: Not Given Ferrous Sulfate (Feosol -) 325 mg PO DAILY [facility] Last Admin: 11/27/16 09:07 Dose: 325 mg Haloperidol (Haldol -) 1 mg PO BID [facility] Last Admin: 11/26/16 22:36 Dose: Not Given Haloperidol (Haldol Injection (Fast Acting) -) 0.5 mg IM Q12H PRN Last Admin: 11/27/16 09:08 Dose: 0.5 mg Heparin Sodium (Porcine) (Heparin -) 5,000 unit SQ BID [facility] Last Admin: 11/27/16 09:07 Dose: 5,000 unit Insulin Aspart (Novolog Vial Sliding Scale -) 1 vial SQ ACHS [facility] PRN Reason: Protocol Last Admin: 11/27/16 06:17 Dose: Not Given Insulin Detemir (Levemir Vial) 25 units SQ HS [facility] Last Admin: 11/26/16 22:34 Dose: 25 units Lactulose (Cephulac (Oral Use)) 10 gm PO DAILY [facility] Last Admin: 11/27/16 09:06 Dose: Not Given Ondansetron HCl (Zofran Injection) 4 mg IVPB Q6H PRN PRN Reason: NAUSEA AND/OR VOMITING Prednisone (Deltasone -) 10 mg PO DAILY [facility] Last Admin: 11/27/16 09:07 Dose: 10 mg Sevelamer Carbonate (Renvela Powder Packet -) 0.8 gm PO TIDCM [facility] Last Admin: 11/27/16 09:06 Dose: Not Given Valproate Sodium (Depakene -) 500 mg PO TID [facility] Last Admin: 11/27/16 06:17 Dose: Not Given - Objective Vital Signs: Vital Signs Temperature 98.0 F 11/27/16 08:59 Pulse Rate 92 H 11/27/16 11:09 Respiratory Rate 19 11/27/16 08:59 Blood Pressure 147/59 11/27/16 08:59 O2 Sat by Pulse Oximetry (%) 95 11/27/16 11:09 Constitutional: Yes: Calm Eyes: Yes: Conjunctiva Clear HENT: Yes: Atraumatic Neck: Yes: Supple Cardiovascular: Yes: S1, S2 Respiratory: Yes: CTA Bilaterally Gastrointestinal: Yes: WNL Musculoskeletal: Yes: WNL Edema: No Neurological: Yes: Oriented Psychiatric: Yes: Oriented Labs: CBC, BMP 11/27/16 06:10 11/27/16 06:10 INR, PTT INR 1.04 (0.82-1.09) 11/15/16 13:11 Problem List - Problems (1) Dialysis AV fistula malfunction Code(s): T82.590A - [facility] COMPL OF SURGICALLY CREATED ARTERIOVENOUS FISTULA, INIT Qualifiers: Encounter type: initial encounter Qualified Code(s): T82.590A - Other mechanical complication of surgically created arteriovenous fistula, initial encounter (2) ESRD (end stage renal disease) Code(s): N18.6 - END STAGE RENAL DISEASE Assessment/Plan Current Medications Generic Name Dose Route Start Last Admin Trade Name Freq PRN Reason Stop Dose Admin Acetaminophen 650 mg 11/22/16 10:42 11/25/16 23:52 Tylenol Suppository - [place] 650 mg Q6H PRN Administration FEVER OR PAIN Cinacalcet 30 mg 11/23/16 10:00 11/26/16 09:54 Sensipar - PO 30 mg DAILY [facility] Administration Clonidine 0.3 mg 11/22/16 14:00 11/27/16 06:17 Catapres - PO Not Given TID [facility] Docusate Sodium 300 mg 11/22/16 22:00 11/26/16 22:45 Colace - PO Not Given HS [facility] Ferrous Sulfate 325 mg 11/23/16 10:00 11/27/16 09:07 Feosol - PO 325 mg DAILY [facility] Administration Haloperidol 1 mg 11/26/16 22:00 11/26/16 22:36 Haldol - PO Not Given BID [facility] Haloperidol 0.5 mg 11/26/16 12:34 11/27/16 09:08 Haldol Injection (Fast Acting) - IM 0.5 mg Q12H PRN Administration Heparin Sodium (Porcine) 5,000 unit 11/22/16 22:00 11/27/16 09:07 Heparin - SQ 5,000 unit BID [facility] Administration Insulin Aspart 1 vial 11/24/16 07:00 11/27/16 06:17 Novolog Vial Sliding Scale - SQ Not Given ACHS [facility] Protocol Insulin Detemir 25 units 11/24/16 22:00 11/26/16 22:34 Levemir Vial SQ 25 units HS [facility] Administration Lactulose 10 gm 11/23/16 10:00 11/27/16 09:06 Cephulac (Oral Use) PO Not Given DAILY [facility] Ondansetron HCl 4 mg 11/22/16 10:42 Zofran Injection IVPB Q6H PRN NAUSEA AND/OR VOMITING Prednisone 10 mg 11/23/16 10:00 11/27/16 09:07 Deltasone - PO 10 mg DAILY [facility] Administration Sevelamer Carbonate 0.8 gm 11/22/16 17:30 11/27/16 09:06 Renvela Powder Packet - PO Not Given TIDCM [facility] Valproate Sodium 500 mg 11/22/16 14:00 11/27/16 06:17 Depakene - PO Not Given TID [facility] Impression 1. ESRD 2. AV fistula malfunction 3. DM 4. HTN 5. COPD 6. Bipolar 7. anemia 8. hyperkalemia 9. tachycardia 10. stool positive for occult blood Plan - will arrange for HD in am - follow up ct scan results, unable to view report - cont current meds - will need fistula, can be done as outpt - stool is positive for occult blood, recommend GI eval - will follow Dr Morales
[2016-11-27] MEDS: CINACALCET HCL 30 MG TAB (FP) PO SCH (12:20)
[2016-11-27] MEDS: HALOPERIDOL 1 MG TABLET (FP) PO SCH ×2 (13:38→23:04)
--- NOTE | 2016-11-27 14:46 | PN ---
Progress Note, Physician History of Present Illness: stable no new issues - Current Medication List Current Medications: Active Medications Acetaminophen (Tylenol Suppository -) 650 mg [place] Q6H PRN PRN Reason: FEVER OR PAIN Last Admin: 11/25/16 23:52 Dose: 650 mg Cinacalcet (Sensipar -) 30 mg PO DAILY [facility] Last Admin: 11/27/16 12:20 Dose: 30 mg Clonidine (Catapres -) 0.3 mg PO TID [facility] Last Admin: 11/27/16 13:38 Dose: 0.3 mg Docusate Sodium (Colace -) 300 mg PO HS [facility] Last Admin: 11/26/16 22:45 Dose: Not Given Epoetin Alfredo (Procrit -) 10,000 unit IVPUSH ONCE ONE Stop: 11/28/16 12:04 Ferrous Sulfate (Feosol -) 325 mg PO DAILY [facility] Last Admin: 11/27/16 09:07 Dose: 325 mg Haloperidol (Haldol -) 1 mg PO BID [facility] Last Admin: 11/27/16 13:38 Dose: 1 mg Haloperidol (Haldol Injection (Fast Acting) -) 0.5 mg IM Q12H PRN Last Admin: 11/27/16 09:08 Dose: 0.5 mg Heparin Sodium (Porcine) (Heparin -) 5,000 unit SQ BID [facility] Last Admin: 11/27/16 09:07 Dose: 5,000 unit Insulin Aspart (Novolog Vial Sliding Scale -) 1 vial SQ [facility] PRN Reason: Protocol Last Admin: 11/27/16 12:19 Dose: 2 units Insulin Detemir (Levemir Vial) 25 units SQ [facility] Last Admin: 11/26/16 22:34 Dose: 25 units Lactulose (Cephulac (Oral Use)) 10 gm PO DAILY [facility] Last Admin: 11/27/16 09:06 Dose: Not Given Ondansetron HCl (Zofran Injection) 4 mg IVPB Q6H PRN PRN Reason: NAUSEA AND/OR VOMITING Prednisone (Deltasone -) 10 mg PO DAILY [facility] Last Admin: 11/27/16 09:07 Dose: 10 mg Sevelamer Carbonate (Renvela Powder Packet -) 0.8 gm PO TIDCM [facility] Last Admin: 11/27/16 12:17 Dose: Not Given Valproate Sodium (Depakene -) 500 mg PO TID [facility] Last Admin: 11/27/16 14:41 Dose: 500 mg - Objective Vital Signs: Vital Signs Temperature 98.6 F 11/27/16 14:40 Pulse Rate 94 H 11/27/16 14:40 Respiratory Rate 16 11/27/16 14:40 Blood Pressure 128/50 11/27/16 14:40 O2 Sat by Pulse Oximetry (%) 95 11/27/16 11:09 Constitutional: Yes: No Distress, Calm Cardiovascular: Yes: Regular Rate and Rhythm Respiratory: Yes: Regular, CTA Bilaterally Gastrointestinal: Yes: Normal Bowel Sounds, Soft Musculoskeletal: Yes: Other Extremities: Yes: Other Neurological: Yes: Alert Psychiatric: Yes: Alert Labs: CBC, BMP 11/27/16 06:10 11/27/16 06:10 INR, PTT INR 1.04 (0.82-1.09) 11/15/16 13:11 Assessment/Plan Problem List - Problems (1) Dialysis AV fistula malfunction Code(s): T82.590A - [facility] COMPL OF SURGICALLY CREATED ARTERIOVENOUS FISTULA, INIT Qualifiers: Encounter type: initial encounter Qualified Code(s): T82.590A - Other mechanical complication of surgically created arteriovenous fistula, initial encounter (2) ESRD (end stage renal disease) Code(s): N18.6 - END STAGE RENAL DISEASE (3) Lethargic Code(s): R53.83 - OTHER FATIGUE (4) Leukocytosis, unspecified Code(s): D72.829 - ELEVATED WHITE BLOOD CELL COUNT, UNSPECIFIED plan conitnues to be stable rest as per primary team continue current mgmt
--- NOTE | 2016-11-27 18:48 | CON.GI ---
Consult - Past Medical History Cardio/Vascular: Yes: HTN, Hyperlipdemia Pulmonary: Yes: Asthma, COPD Gastrointestinal: No: Ascites, Cancer, Constipation, Crohn's Disease, Diverticulitis, Diverticulosis, Esophageal Varices, Gastritis, GERD, GI Bleed, Hemorrhoids, Hiatal Hernia, Inflamatory Bowel Disease, Irritable Bowel Disease, Pancreatitis, Peptic Ulcer Disease, Ulcerative Colitis, Other Hepatobiliary: No: Cirrhosis, Cholelithiasis, Cholecystitis, Choledocholithiasis , Hepatitis A, Hepatitis B, Hepatitis C, Other Renal/: Yes: Renal Failure, Hemodialysis ...: No Psych: Yes: Bipolar Endocrine: Yes: Diabetes Mellitus - Past Surgical History Past Surgical History: Yes: AV Fistula/Graft - Alcohol/Substance Use Hx Alcohol Use: No - Smoking History Smoking history: Former smoker Have you smoked in the past 12 months: No Aproximately how many cigarettes per day: 3 If you are a former smoker, when did you quit?: last year - Social History Usual Living Arrangement: [facility] Home Medications - Allergies Allergies/Adverse Reactions: Allergies Allergy/AdvReac Type Severity Reaction Status Date / Time labetalol Allergy Intermediate Difficulty Verified 11/15/16 12:25 Breathing latanoprost [From Xalatan] Allergy Intermediate Difficulty Verified 11/15/16 12: 25 Breathing calcium acetate [From PhosLo] Allergy Verified 11/16/16 01:53 peanut Allergy Verified 11/15/16 12:25 - Home Medications Home Medications: Ambulatory Orders Albuterol 0.083% Nebulizer Lizeth [Ventolin 0.083% Nebulizer Soln -] 1 amp IH BID 02/14/15 Amlodipine Besylate 10 mg PO DAILY 02/14/15 Carvedilol [Coreg] 25 mg PO BID 02/14/15 Cinacalcet HCl [Sensipar] 30 mg PO DAILY 02/14/15 Clonidine HCl [Catapres] 0.3 mg PO TID 02/14/15 Docusate Sodium [Colace -] 3 cap PO HS 02/14/15 Ferrous Sulfate 325 mg PO DAILY 02/14/15 Gabapentin 100 mg PO TID 02/14/15 Haloperidol [Haldol -] 10 mg PO HS 02/14/15 Acetaminophen [Pain Relief] 650 mg PO PRN PRN 11/14/16 Ammonium Lactate [Tootie-Hydrolac] 240 gm TP HS 11/14/16 Divalproex [Depakote -] 500 mg PO TID 11/14/16 Guaifenesin/D-Methorphan Hb [Diabetic Tussin Dm Liquid] 118 ml PO PRN PRN Insulin (Levemir) [Levemir Vial] 18 unit SQ HS 11/14/16 Insulin Aspart [Novolog] 100 unit SQ TID 11/14/16 Insulin Lispro [Humalog] 100 unit SQ PRN PRN 11/14/16 Lactulose 10 gm PO DAILY 11/14/16 Lorazepam 1 mg PO PRN PRN 11/14/16 Magnesium Hydroxide [Milk of Magnesia] 400 mg PO PRN 11/14/16 Menthol [Bengay Ultra Strength] 1 each TP DAILY 11/14/16 Na Phos,M-B/Na Phos,Di-Ba [Fleet Enema] 133 ml RC PRN PRN 11/14/16 Polyethylene Glycol [Polyox Wsr-301] 1 gm MC 11/14/16 Prednisone 10 mg PO DAILY 11/14/16 Sevelamer Carbonate [Renvela] 800 mg PO TID 11/14/16 Umeclidinium [place] [Incruse Ellipta] 62.5 mcg IH DAILY 11/14/16 Vitamin B Comp W-C [Nephro-Lorenzo -] 1 tablet PO DAILY 11/14/16 Physical Exam-GI Vital Signs: Vital Signs Temperature 98.6 F 11/27/16 14:40 Pulse Rate 94 H 11/27/16 14:40 Respiratory Rate 16 11/27/16 14:40 Blood Pressure 128/50 11/27/16 14:40 O2 Sat by Pulse Oximetry (%) 95 11/27/16 11:09 Labs: CBC, BMP 11/27/16 06:10 11/27/16 06:10 INR, PTT INR 1.04 (0.82-1.09) 11/15/16 13:11
--- NOTE | 2016-11-27 22:12 | PN ---
Progress Note, Physician History of Present Illness: No new change - Current Medication List Current Medications: Active Medications Acetaminophen (Tylenol Suppository -) 650 mg MA Q6H PRN PRN Reason: FEVER OR PAIN Last Admin: 11/25/16 23:52 Dose: 650 mg Cinacalcet (Sensipar -) 30 mg PO DAILY [facility] Last Admin: 11/27/16 12:20 Dose: 30 mg Clonidine (Catapres -) 0.3 mg PO TID [facility] Last Admin: 11/27/16 13:38 Dose: 0.3 mg Docusate Sodium (Colace -) 300 mg PO HS [facility] Last Admin: 11/26/16 22:45 Dose: Not Given Epoetin Alfredo (Procrit -) 10,000 unit IVPUSH ONCE ONE Stop: 11/28/16 12:04 Ferrous Sulfate (Feosol -) 325 mg PO DAILY [facility] Last Admin: 11/27/16 09:07 Dose: 325 mg Haloperidol (Haldol -) 1 mg PO BID [facility] Last Admin: 11/27/16 13:38 Dose: 1 mg Haloperidol (Haldol Injection (Fast Acting) -) 0.5 mg IM Q12H PRN Last Admin: 11/27/16 09:08 Dose: 0.5 mg Heparin Sodium (Porcine) (Heparin -) 5,000 unit SQ BID [facility] Last Admin: 11/27/16 09:07 Dose: 5,000 unit Insulin Aspart (Novolog Vial Sliding Scale -) 1 vial SQ [facility] PRN Reason: Protocol Last Admin: 11/27/16 16:56 Dose: 4 units Insulin Detemir (Levemir Vial) 25 units SQ [facility] Last Admin: 11/26/16 22:34 Dose: 25 units Lactulose (Cephulac (Oral Use)) 10 gm PO DAILY [facility] Last Admin: 11/27/16 09:06 Dose: Not Given Ondansetron HCl (Zofran Injection) 4 mg IVPB Q6H PRN PRN Reason: NAUSEA AND/OR VOMITING Last Admin: 11/27/16 15:03 Dose: 4 mg Prednisone (Deltasone -) 10 mg PO DAILY [facility] Last Admin: 11/27/16 09:07 Dose: 10 mg Sevelamer Carbonate (Renvela Powder Packet -) 0.8 gm PO TIDCM [facility] Last Admin: 11/27/16 18:22 Dose: Not Given Valproate Sodium (Depakene -) 500 mg PO TID [facility] Last Admin: 11/27/16 14:41 Dose: 500 mg - Objective Vital Signs: Vital Signs Temperature 98.5 F 11/27/16 18:00 Pulse Rate 91 H 11/27/16 18:00 Respiratory Rate 18 11/27/16 18:00 Blood Pressure 156/74 11/27/16 18:00 O2 Sat by Pulse Oximetry (%) 95 11/27/16 11:09 Constitutional: Yes: No Distress Neck: Yes: WNL, Supple Cardiovascular: Yes: WNL, Regular Rate and Rhythm Respiratory: Yes: WNL, Regular, CTA Bilaterally Gastrointestinal: Yes: WNL, Normal Bowel Sounds, Soft Labs: CBC, BMP 11/27/16 06:10 11/27/16 06:10 INR, PTT INR 1.04 (0.82-1.09) 11/15/16 13:11 Problem List - Problems (1) Abdominal pain Assessment/Plan: Ct scan abd noted: no acute pathoogy Will get US abdomen GI consult Code(s): R10.9 - UNSPECIFIED ABDOMINAL PAIN (2) Elevated troponin Assessment/Plan: Due to demand ischemia and not [place] Agree w/ cardio Unable to do cardiac cath at this time Stress test as per cardio Code(s): R74.8 - ABNORMAL LEVELS OF OTHER SERUM ENZYMES (3) Dialysis AV fistula malfunction Code(s): T82.590A - [facility] COMPL OF SURGICALLY CREATED ARTERIOVENOUS FISTULA, INIT Qualifiers: Encounter type: initial encounter Qualified Code(s): T82.590A - Other mechanical complication of surgically created arteriovenous fistula, initial encounter (4) ESRD (end stage renal disease) Code(s): N18.6 - END STAGE RENAL DISEASE (5) Diabetes Code(s): E11.9 - TYPE 2 DIABETES MELLITUS WITHOUT COMPLICATIONS (6) Anemia Code(s): D64.9 - ANEMIA, UNSPECIFIED (7) HTN (hypertension) Code(s): I10 - ESSENTIAL (PRIMARY) HYPERTENSION (8) Bipolar 1 disorder Assessment/Plan: Pt w/ agitation Cont depakote/haldol Code(s): F31.9 - BIPOLAR DISORDER, UNSPECIFIED (9) Lethargic Assessment/Plan: infectious/metabolic encephalopathy Resolved Code(s): R53.83 - OTHER FATIGUE (10) Sepsis Assessment/Plan: Urine culture remains negative BC remain negative Pt is off antibxs WBC is normal Code(s): A41.9 - SEPSIS, UNSPECIFIED ORGANISM
[2016-11-27] MEDS ORDERED: PT OWN MED DRAWER 7, Y5N ONE (22:48)
[2016-11-27] MEDS: DOCUSATE SODIUM 100 MG CAPSULE (FP) PO SCH (23:04)
[2016-11-27] MEDS: INSULIN DETEMIR 100 UNITS/ML MDV SQ SCH (23:30)
[2016-11-28] MEDS: VALPROATE SODIUM 250 MG/5 ML UNIT DOSE CUP PO SCH ×2 (06:05→13:45)
[2016-11-28] MEDS: cloNIDine HCL 0.1 MG TABLET PO SCH ×2 (06:05→13:45)
[2016-11-28] MEDS: INSULIN SLIDING SCALE (NOVOLOG) 1 VIAL SQ SCH ×2 (06:06→13:46)
--- NOTE | 2016-11-28 07:50 | PN ---
Progress Note, Physician Chief Complaint: no complaints today No chest pain TELE: NSR - Current Medication List Current Medications: Active Medications Acetaminophen (Tylenol Suppository -) 650 mg AR Q6H PRN PRN Reason: FEVER OR PAIN Last Admin: 11/25/16 23:52 Dose: 650 mg Cinacalcet (Sensipar -) 30 mg PO DAILY [facility] Last Admin: 11/27/16 12:20 Dose: 30 mg Clonidine (Catapres -) 0.3 mg PO TID [facility] Last Admin: 11/28/16 06:05 Dose: Not Given Docusate Sodium (Colace -) 300 mg PO HS [facility] Last Admin: 11/27/16 23:04 Dose: 300 mg Epoetin Alfredo (Procrit -) 10,000 unit IVPUSH ONCE ONE Stop: 11/28/16 12:04 Ferrous Sulfate (Feosol -) 325 mg PO DAILY [facility] Last Admin: 11/27/16 09:07 Dose: 325 mg Haloperidol (Haldol -) 1 mg PO BID [facility] Last Admin: 11/27/16 23:04 Dose: 1 mg Haloperidol (Haldol Injection (Fast Acting) -) 0.5 mg IM Q12H PRN Last Admin: 11/27/16 09:08 Dose: 0.5 mg Heparin Sodium (Porcine) (Heparin -) 5,000 unit SQ BID [facility] Last Admin: 11/27/16 23:04 Dose: Not Given Insulin Aspart (Novolog Vial Sliding Scale -) 1 vial SQ [facility] PRN Reason: Protocol Last Admin: 11/28/16 06:06 Dose: Not Given Insulin Detemir (Levemir Vial) 25 units SQ [facility] Last Admin: 11/27/16 23:30 Dose: Not Given Lactulose (Cephulac (Oral Use)) 10 gm PO DAILY [facility] Last Admin: 11/27/16 09:06 Dose: Not Given Ondansetron HCl (Zofran Injection) 4 mg IVPB Q6H PRN PRN Reason: NAUSEA AND/OR VOMITING Last Admin: 11/27/16 15:03 Dose: 4 mg Prednisone (Deltasone -) 10 mg PO DAILY [facility] Last Admin: 11/27/16 09:07 Dose: 10 mg Sevelamer Carbonate (Renvela Powder Packet -) 0.8 gm PO TIDCM [facility] Last Admin: 11/27/16 18:22 Dose: Not Given Valproate Sodium (Depakene -) 500 mg PO TID [facility] Last Admin: 11/28/16 06:05 Dose: Not Given - Objective Vital Signs: Vital Signs Temperature 98.2 F 11/28/16 06:00 Pulse Rate 82 11/28/16 06:00 Respiratory Rate 18 11/28/16 06:00 Blood Pressure 135/60 11/28/16 06:00 O2 Sat by Pulse Oximetry (%) 98 11/27/16 22:00 Constitutional: Yes: No Distress Cardiovascular: Yes: Regular Rate and Rhythm Respiratory: Yes: CTA Bilaterally Gastrointestinal: Yes: Soft (non-tender) Edema: No Neurological: Yes: Alert Labs: CBC, BMP 11/27/16 06:10 11/27/16 06:10 INR, PTT INR 1.04 (0.82-1.09) 11/15/16 13:11 Laboratory Tests 11/27/16 06:10 WBC 8.2 Hgb 13.1 D Plt Count 126 L D - ....Imaging EKG: Image Reviewed Assessment/Plan Recc: 1.Troponin slightly elevate likely secondary to sepsis and anemia in setting of ESRD (demand ischemia) Echo showed hyperdynamic LV/RV systolic function, mild to mod AR, mild MR, unclear if pericardial effusion Now with atypical chest pain symptoms- unclear if at catheter site or if substernal (poor historian). -In light of infection, anemia and guaiac + stool requiring transfusion she does not seem to be a candidate for cath at this point. -Can d/c tele -ASA 81mg when feasible (guaiac +) -Follow H/H -Statin -Has allergy to Labetalol (?all beta blockers) - Patient is currently refusing stress test-spoke to family member (Jasmine) yesterday to update condition. She said she would try to talk to [facility] about the stress test, even if done as outpatient. 2. Anemia: improved with PRBCs, stool guaiac + 3. Sinus tach improving: no arrhythmias on tele since admission
[2016-11-28] MEDS: HALOPERIDOL LACTATE 5 MG/ML IM PRN (09:41)
[2016-11-28] MEDS ORDERED: EPOETIN ALFA 10,000 UNIT/1 ML VIAL IVPUSH ONE (10:30)
[2016-11-28 10:46] VITALS: TEMP 98
[2016-11-28] MEDS: HEPARIN NA (PORCINE) 5,000 UNITS/ML 1ML VIAL SQ SCH (11:46)
[2016-11-28] MEDS: SEVELAMER CARBONATE 0.8 GM POWDER PACKET PO SCH ×2 (12:49→13:53)
[2016-11-28 13:20] VITALS: BP 102/60; PULSE 60
--- NOTE | 2016-11-28 13:27 | PN ---
Progress Note, Physician History of Present Illness: Pt seen and examined at bedside. She is getting HD. - Current Medication List Current Medications: Active Medications Acetaminophen (Tylenol Suppository -) 650 mg MA Q6H PRN PRN Reason: FEVER OR PAIN Last Admin: 11/25/16 23:52 Dose: 650 mg Cinacalcet (Sensipar -) 30 mg PO DAILY [facility] Last Admin: 11/27/16 12:20 Dose: 30 mg Clonidine (Catapres -) 0.3 mg PO TID [facility] Last Admin: 11/28/16 06:05 Dose: Not Given Docusate Sodium (Colace -) 300 mg PO HS [facility] Last Admin: 11/27/16 23:04 Dose: 300 mg Ferrous Sulfate (Feosol -) 325 mg PO DAILY [facility] Last Admin: 11/27/16 09:07 Dose: 325 mg Haloperidol (Haldol -) 1 mg PO BID [facility] Last Admin: 11/27/16 23:04 Dose: 1 mg Haloperidol (Haldol Injection (Fast Acting) -) 0.5 mg IM Q12H PRN Last Admin: 11/28/16 09:41 Dose: 0.5 mg Heparin Sodium (Porcine) (Heparin -) 5,000 unit SQ BID [facility] Last Admin: 11/27/16 23:04 Dose: Not Given Insulin Aspart (Novolog Vial Sliding Scale -) 1 vial SQ ACHS [facility] PRN Reason: Protocol Last Admin: 11/28/16 06:06 Dose: Not Given Insulin Detemir (Levemir Vial) 25 units SQ HS [facility] Last Admin: 11/27/16 23:30 Dose: Not Given Lactulose (Cephulac (Oral Use)) 10 gm PO DAILY [facility] Last Admin: 11/27/16 09:06 Dose: Not Given Ondansetron HCl (Zofran Injection) 4 mg IVPB Q6H PRN PRN Reason: NAUSEA AND/OR VOMITING Last Admin: 11/27/16 15:03 Dose: 4 mg Prednisone (Deltasone -) 10 mg PO DAILY [facility] Last Admin: 11/27/16 09:07 Dose: 10 mg Sevelamer Carbonate (Renvela Powder Packet -) 0.8 gm PO TIDCM [facility] Last Admin: 11/28/16 12:49 Dose: Not Given Valproate Sodium (Depakene -) 500 mg PO TID [facility] Last Admin: 11/28/16 06:05 Dose: Not Given - Objective Vital Signs: Vital Signs Temperature 98 F 11/28/16 09:50 Pulse Rate 60 11/28/16 13:19 Respiratory Rate 18 11/28/16 13:19 Blood Pressure 102/60 11/28/16 13:19 O2 Sat by Pulse Oximetry (%) 98 11/27/16 22:00 Constitutional: Yes: Calm Eyes: Yes: Conjunctiva Clear HENT: Yes: Atraumatic Neck: Yes: Supple Cardiovascular: Yes: S1, S2 Respiratory: Yes: CTA Bilaterally Gastrointestinal: Yes: Soft Genitourinary: Yes: WNL Musculoskeletal: Yes: WNL Edema: No Neurological: Yes: Other (agitated) Labs: CBC, BMP 11/27/16 06:10 11/27/16 06:10 INR, PTT INR 1.04 (0.82-1.09) 11/15/16 13:11 Problem List - Problems (1) Dialysis AV fistula malfunction Code(s): T82.590A - [facility] COMPL OF SURGICALLY CREATED ARTERIOVENOUS FISTULA, INIT Qualifiers: Encounter type: initial encounter Qualified Code(s): T82.590A - Other mechanical complication of surgically created arteriovenous fistula, initial encounter (2) ESRD (end stage renal disease) Code(s): N18.6 - END STAGE RENAL DISEASE Assessment/Plan Current Medications Generic Name Dose Route Start Last Admin Trade Name Freq PRN Reason Stop Dose Admin Acetaminophen 650 mg 11/22/16 10:42 11/25/16 23:52 Tylenol Suppository - MA 650 mg Q6H PRN Administration FEVER OR PAIN Cinacalcet 30 mg 11/23/16 10:00 11/27/16 12:20 Sensipar - PO 30 mg DAILY [facility] Administration Clonidine 0.3 mg 11/22/16 14:00 11/28/16 06:05 Catapres - PO Not Given TID [facility] Docusate Sodium 300 mg 11/22/16 22:00 11/27/16 23:04 Colace - PO 300 mg HS [facility] Administration Ferrous Sulfate 325 mg 11/23/16 10:00 11/27/16 09:07 Feosol - PO 325 mg DAILY [facility] Administration Haloperidol 1 mg 11/26/16 22:00 11/27/16 23:04 Haldol - PO 1 mg BID [facility] Administration Haloperidol 0.5 mg 11/26/16 12:34 11/28/16 09:41 Haldol Injection (Fast Acting) - IM 0.5 mg Q12H PRN Administration Heparin Sodium (Porcine) 5,000 unit 11/22/16 22:00 11/27/16 23:04 Heparin - SQ Not Given BID [facility] Insulin Aspart 1 vial 11/24/16 07:00 11/28/16 06:06 Novolog Vial Sliding Scale - SQ Not Given ACHS [facility] Protocol Insulin Detemir 25 units 11/24/16 22:00 11/27/16 23:30 Levemir Vial SQ Not Given HS [facility] Lactulose 10 gm 11/23/16 10:00 11/27/16 09:06 Cephulac (Oral Use) PO Not Given DAILY [facility] Ondansetron HCl 4 mg 11/22/16 10:42 11/27/16 15:03 Zofran Injection IVPB 4 mg Q6H PRN Administration NAUSEA AND/OR VOMITING Prednisone 10 mg 11/23/16 10:00 11/27/16 09:07 Deltasone - PO 10 mg DAILY [facility] Administration Sevelamer Carbonate 0.8 gm 11/22/16 17:30 11/28/16 12:49 Renvela Powder Packet - PO Not Given TIDCM [facility] Valproate Sodium 500 mg 11/22/16 14:00 11/28/16 06:05 Depakene - PO Not Given TID [facility] Impression 1. ESRD 2. AV fistula malfunction 3. DM 4. HTN 5. COPD 6. Bipolar 7. anemia 8. hyperkalemia 9. tachycardia 10. stool positive for occult blood Plan - HD today - cont epogen - follow up GI - cont current meds - will need fistula, can be done as outpt - will follow Dr Morales
[2016-11-28] MEDS ORDERED: PT OWN MED DRAWER 7, Y5N ONE ×2 (13:36→13:44)
[2016-11-28] MEDS: HALOPERIDOL 1 MG TABLET (FP) PO SCH (13:40)
[2016-11-28] MEDS: predniSONE 10 MG TABLET (UD) PO SCH (13:41)
[2016-11-28] MEDS: FERROUS SO4 325 MG TABLET (FP) PO SCH (13:41)
[2016-11-28] MEDS: LACTULOSE 20 GM/30 ML UDC (FOR ORAL USE ONLY) PO SCH (13:41)
[2016-11-28] MEDS: CINACALCET HCL 30 MG TAB (FP) PO SCH (13:53)
[2016-11-28] MEDS ORDERED: INSULIN (NOVOLOG) ASPART 100 UNITS/ML 10ML VIAL ONE (13:55)
== END 2016-11-28 14:04 | DRG 252 ==
LOC: JER 12:18 → JERBED 16:50 → J4S 21:49
PROVIDERS: ADMIT Internal Medicine; ATTEND Internal Medicine
PROC: 057F3DZ Dilation of Left Cephalic Vein with Intraluminal Device, Percutaneous Approach (ICD-10-PCS; 2016-11-16)
PROC: B51NYZA Fluoroscopy of Left Upper Extremity Veins using Other Contrast, Guidance (ICD-10-PCS; 2016-11-16)
PROC: 30233N1 Transfusion of Nonautologous Red Blood Cells into Peripheral Vein, Percutaneous Approach (ICD-10-PCS; 2016-11-16)
PROC: 05CF3ZZ Extirpation of Matter from Left Cephalic Vein, Percutaneous Approach (ICD-10-PCS; principal; 2016-11-16 11:00)
PROC: 05H633Z Insertion of Infusion Device into Left Subclavian Vein, Percutaneous Approach (ICD-10-PCS; 2016-11-22)
PROC: 5A1D60Z (ICD-10-PCS; 2016-11-28)
DX: T82.590A Other mechanical complication of surgically created arteriovenous fistula, initial encounter (principal); N18.6 End stage renal disease; A41.9 Sepsis, unspecified organism; G93.41 Metabolic encephalopathy; N39.0 Urinary tract infection, site not specified; J98.11 Atelectasis; I12.0 Hypertensive chronic kidney disease with stage 5 chronic kidney disease or end stage renal disease; Y83.9 Surgical procedure, unspecified as the cause of abnormal reaction of the patient, or of later complication, without mention of misadventure at the time of the procedure; J44.9 Chronic obstructive pulmonary disease, unspecified; D64.9 Anemia, unspecified; E87.5 Hyperkalemia; R00.0 Tachycardia, unspecified; F31.9 Bipolar disorder, unspecified; Z87.891 Personal history of nicotine dependence; D72.829 Elevated white blood cell count, unspecified; R53.83 Other fatigue; E78.5 Hyperlipidemia, unspecified; E11.22 Type 2 diabetes mellitus with diabetic chronic kidney disease; Z99.2 Dependence on renal dialysis; Z79.4 Long term (current) use of insulin
CPT/HCPCS: 36415; 36430; 36600; 70450-TC; 71010-TC; 74000-TC; 74176-TC; 76000-TC; 80048; 80053; 82272; 82553; 82803; 82947; 83735; 84132; 84443; 84484; 85025; 85027; 85610; 86704; 86706; 86708; 86803; 86850; 86900; 86901; 86922; 87040; 87077; 87086; 87340; 93005; 93010; 93306-TC; 93970-TC; 93990-TC; 94760; 99283-25; J0885; J1644; P9038; P9058; Q9967